=== PATIENT | female | born 1960 | race African-American/Black ===

== ENCOUNTER 2024-03-31 15:33 | Outpatient (AMB) | payer OTHER, MEDICAID, SELFPAY ==
--- NOTE | 2024-03-31 15:33 | HO.NEPHOV_ITS ---
Vital Signs 03/31/24 15:34 Height 5 ft 2 in Weight 239 lb BMI 43.7 BP 124/74 Blood Pressure Location Lt brachial Position Sitting Pulse 75 Pulse Source Pulse Oximeter Pulse Oximetry (%) 96 Oxygen Delivery Method Room Air Intake Visit Reasons: CKD Stage 3-Conf Commercial Plumber Required: No Accompanied by: Self / Same As Patient Allergies doxycycline Allergy (Verified 03/31/24 15:33) Unknown erythromycin base Allergy (Verified 03/31/24 15:33) Unknown kiwi Allergy (Verified 03/31/24 15:33) Unknown latex Allergy (Verified 03/31/24 15:) Unknown penicillamine Allergy (Verified 03/31/24 15:33) Unknown strawberry Allergy (Verified 03/31/24 15:33) Unknown tomato Allergy (Verified 03/31/24:) Unknown HPI Comments Details: Ms Salomon is a delightful 63-year-old female whom had the pleasure of seeing for WILLIAM. She is still grieving from the loss of her . She has multiple medical issues including hypertension, dyslipidemia, rheumatoid arthritis and high BMI. She has been on lisinopril hydrochlorothiazide 02/26.. She is not known to have any proteinuria. Her baseline serum creatinine has been 0.7 which has gone up to 1.22. She has history of low-normal potassium. She is currently on leflunomide and sulfasalazine for her rheumatoid arthritis. She takes vitamin-C daily. She denies chest pain, shortness of breath, proximal nocturnal dyspnea, orthopnea, pedal edema, hematuria, sensorineural deafness,, epistaxis, photosensitivity, new skin rashes. She denies taking excessive nonsteroidal anti-inflammatories. She maintains good hydration. She has no orthostatic symptoms. She is trying to be more active. She has no family history of any renal disease. She is concerned about her rise in serum creatinine. [facility] Medical History (Updated 03/31/24 @ 16:08 by Harley Reyes MD) Concussion Eczema Rheumatoid arthritis Hyperlipidemia Hypertension Anemia Chronic kidney disease, stage 3a Surgical History H/O section Hx of tonsillectomy Review of Systems Const All systems reviewed & are unremarkable except as noted in HPI and below Physical Exam Vital Signs: Last Vital Signs Pulse 75 03/31/24 15:34 BP 124/74 03/31/24 15:34 Pulse Ox 96 03/31/24 15:34 Oxygen Delivery Method Room Air 03/31/24 15:34 BMI result Body Mass Index 43.7 Const General: comfortable and no acute distress Orientation/consciousness: patient oriented x3 HEENT Head: Yes normocephalic Mouth: Normal oral and palatal mucosa present Eyes EOM: EOMs intact bilaterally Neck Neck: Yes supple Resp Auscultation: clear to auscultation bilaterally Cardio Jugular venous distension: no JVD Rate: regular rate GI Palpation (GI): Soft to palpation Auscultation: normal bowel sounds General: Yes no CVA tenderness Back/Spine/Pelvis Back: no CVA tenderness Skin General skin exam: no rashes or lesions noted Neuro General: patient oriented x3 and moves all extremities Extrem General: Yes no pedal edema Results Reviewed Nephrology Results: No Data to Display Assessment & Plan Assessment & Plan (1) WILLIAM (acute kidney injury): Code(s): N17.9 - Acute kidney failure, unspecified Category: Medical (2) Hypertension: Code(s): I10 - Essential (primary) hypertension Category: Medical Qualifiers: Hypertension type: primary hypertension Qualified Code(s): I10 - Essential (primary) hypertension Plan Ms Salomon has WILLIAM most likely due to compromise in renal perfusion with resultant tubular injury. Her urine output is good and there is no reason to suspect any obstructive uropathy. Given she has rheumatoid arthritis and is on medications for the same, we need to consider other differential diagnosis for which I have ordered blood work. We may have to back off on her HCTZ and or lisinopril based on evolving data. She should minimize or avoid nonsteroidal anti-inflammatories and maintain good hydration. She is not known to have any proteinuria. Her blood pressure needs to maintain at goal. I have explained all this in great detail and she had the opportunity to ask questions. Follow- up appointment given. Further management is pending evolving data. Orders: Orders Calcium 03/31/24 I10 - Essential (primary) hypertension Electrolytes 03/31/24 I10 - Essential (primary) hypertension Myeloperoxidase Antibody 03/31/24 I10 - Essential (primary) hypertension Protein Creatinine Ratio, Ur 03/31/24 I10 - Essential (primary) hypertension Prothrombin Time INR 03/31/24 I10 - Essential (primary) hypertension Aldosterone 03/31/24 I10 - Essential (primary) hypertension, N17.9 - Acute kidney failure, unspecified Aldost/Renin 03/31/24 I10 - Essential (primary) hypertension, N17.9 - Acute kidney failure, unspecified Blood Urea Nitrogen 03/31/24 I10 - Essential (primary) hypertension Creatinine 03/31/24 I10 - Essential (primary) hypertension Anti DNA DS Antibody 03/31/24 I10 - Essential (primary) hypertension Proteinase 3 PR3 Antibodies 03/31/24 I10 - Essential (primary) hypertension Anti Glomerular Basement Memb 03/31/24 I10 - Essential (primary) hypertension Complement C3 03/31/24 I10 - Essential (primary) hypertension Complement C4 03/31/24 I10 - Essential (primary) hypertension Immunofixation Pnl, Serum 03/31/24 I10 - Essential (primary) hypertension Complete Blood Count Auto Diff 03/31/24 I10 - Essential (primary) hypertension US renal BI 1 Week I10 - Essential (primary) hypertension, N17.9 - Acute kidney failure, unspecified US renal doppler 1 Week I10 - Essential (primary) hypertension Renin 03/31/24 I10 - Essential (primary) hypertension, N17.9 - Acute kidney failure, unspecified Coding Level of Care Code New Pt Level 4 (61412) Diagnoses WILLIAM (acute kidney injury) N17.9 Primary hypertension I10 Hypertension type: primary hypertension
[2024-03-31 15:34] VITALS: BP 124/74; PULSE 75; O2SAT 96; BMI 43.7
== END 2024-03-31 16:21 | disposition home or self-care (01) ==
PROVIDERS: PCP Hospitalist; Referring Provider Hospitalist; Visit Provider Internal Medicine Nephrology
DX: N17.9 Acute kidney failure, unspecified (principal); I10 Essential (primary) hypertension
CPT/HCPCS: 99204

== ENCOUNTER 2024-04-28 08:42 | Outpatient (REF) | payer MEDICARE, MEDICAID, SELFPAY ==
--- NOTE | ~2024-04-28 | US_ITS ---
EXAMINATION: US RETROPERITONEAL LIMITED (RENAL ONLY) CLINICAL INFORMATION: Acute kidney failure. COMPARISON: None available. TECHNIQUE: Ultrasound along with color Doppler imaging and spectral analysis was performed of the kidneys. FINDINGS: RIGHT KIDNEY: 12.0 x 4.6 x 5.5 cm (SAG x AP x TRV). The kidney is normal in size, contour, and echogenicity. Renal cortical thickness is normal. No calculi or focal parenchymal lesions. No hydronephrosis. LEFT KIDNEY: 10.8 x 5.5 x 4.5 cm (SAG x AP x TRV). The kidney is normal in size, contour, and echogenicity. Renal cortical thickness is normal. No calculi or focal parenchymal lesions. No hydronephrosis. EXAMINATION: US RENAL ARTERY DOPPLER EXAMINATION CLINICAL INFORMATION: Acute kidney failure. TECHNIQUE: Multiple sonographic images of the kidneys were assessed for grayscale appearance and color Doppler flow. Color Doppler imaging and Doppler spectral analysis of the bilateral renal arteries are performed. FINDINGS: The mid abdominal aorta peak systolic flow velocity is 97 cm/sec (less than 40 or greater than 100 cm/s cannot be used to calculate the RAR). Right kidney No calcified renal stones with acoustic shadowing or caliectasis are seen. The right proximal renal artery peak systolic flow velocity is 98 cm/sec (normal < 180). The right mid renal artery peak systolic flow velocity is 138 cm/sec (normal < 180). The right distal renal artery peak systolic flow velocity is 74 cm/sec (normal < 180). The right renal artery to aortic ratio RAR is 1.42 (normal <3). Segmental resistive index: The right renal artery upper resistive index is 0.66 (normal <0.7) The right renal artery mid resistive index is 0.61 (normal <0.7) The right renal artery lower resistive index is 0.67 (normal <0.7) Left kidney No calcified renal stones with acoustic shadowing or caliectasis are seen. The left proximal renal artery peak systolic flow velocity is 83 cm/sec (normal < 180). The left mid renal artery peak systolic flow velocity is 109 cm/sec (normal < 180). The left distal renal artery peak systolic flow velocity is 72 cm/sec (normal < 180). The left renal artery to aortic ratio RAR is 1.12 (normal <3). Segmental resistive index: The left renal artery upper resistive index is 0.69 (normal <0.7) The left renal artery mid resistive index is 0.64 (normal <0.7) The left renal artery lower resistive index is 0.63 (normal <0.7) US/US renal doppler IMPRESSION: 1. Normal sonographic appearance of bilateral kidneys with no evidence of renal stones or hydronephrosis. 2. No sonographic evidence of renal artery stenosis. 2. No sonographic evidence of renal artery stenosis. Electronically signed by: Janet Negrete MD 04/29/2024 06:34 AM DEANDRE
--- OUTSIDE RECORDS SUMMARY | 2024-04-28 08:59 | XMS_ITS ---
Author Organization [facility] Address [address] [place] [address] Care Team Providers Care Software Project Engineer Name Role Phone JESUS ROBLES Primary Care Provider [phone] Allergies Allergen (clinical drug ingredient) Drug/Non Drug Allergy documented on EMR Reaction Allergy Type Onset Date Status kiwis (uncoded) Unknown Allergy Acti ve Latex latex (uncoded) Unknown Allergy Acti ve strawberry allergenic extract strawberries (uncoded) Unknown Allergy Activ e tomato allergenic extract tomatos (uncoded) Unknown Allergy Active doxycycline Doxycycline Hyclate Unknown Drug Allergy Active erythromycin Erythromycin Unknown Drug Allergy A ctive penicillamine Penicillamine Unknown Drug Allergy Active REASON FOR VISIT MEDICARE WELLNESS Medications Medication SIG (Take, Route, Frequency, Duration) Notes Start Date End Date Status Multivitamin Adult one daily N ot-Taking CoQ10 100 MG 1 capsule orally once a day Not-Taking Vitamin D 2000 UNIT 1 tablet Orally Once a day Not-Taking Verdigre 3 1200 MG 1 capsule Orally Once a day Not-Taking Vitamin E 400 UNIT 1 capsule orally once a day Not-Taking Klor-Con 20 MEQ MIX AND DRINK 1 PACKET BY MOUTH DAILY WITH FOOD for 90 days Active Lisinopril-hydroCHLOROth iazide 10-12.5 MG 1 tablet Orally Once a day for 90 days 01/28/2024 Active Atorvastatin Calcium 10 MG TAKE 1 TABLET BY MOUTH EVERY DAY for 90 Active diazePAM 5 MG 1 tablet as needed Orally Once a day for 90 days take half an hour before flight 11/11/2023 Active Metoprolol Succinate ER 100 MG TAKE 1 TABLET BY MOUTH EVERY DAY for 90 days Active Hydroxychloroquine Sulfate 200 MG 1 tablet with food or milk Orally twice a day for [address] Parker Active Leflunomide 20 MG 1 tablet Orally Once a day for [address] Parker Active Aspirin Adult Low Dose 81 MG 1 tablet Orally Once a day for 90 days Active Folic Acid 1 MG 1 tablet Orally Once a day for [address] Parker Active Vitamin C 1000 MG 1 tablet orally once a day for 90 days Active Potassium Chloride ER 20 MEQ 1 tablet with food Orally Once a day for 90 days Active Ferrous Sulfate 325 (65 Fe) MG 2 tablet Orally Once a day for 90 days Active sulfaSALAzine 500 MG 1 tablet Orally four times a day for [address] Parker Active Blood Pressure Monitor - use to check blood pressure daily for 30 days 12/02/2023 Active predniSONE 5 MG 1 tablet Orally Once a day Dr. Parker Active Gabapentin 600 MG 1 tablet Orally 2 times a day for [address] Parker Active Misc. Devices - as directed for 365 days Extra long Compression stocking buttocks high for pt 01/28/2024 Active traMADol HCl 50 MG 1 tablet as needed Orally four times a day Dr. Elena Samayoa Misc. Devices - as directed 01/28/2024 A ctive Social History Tobacco Use: Social History Observation Description Date Details (start date - stop date) Never Smoker NA - NA Tobacco Use/Smoking Question Answer Notes Are you a nonsmoker Alcohol Screen (Audit-C) Question Answer Notes Did you have a drink containing alcohol in the p ast year? No Points 0 Interpretation Negative Vital Signs Temperature 96.8 degrees Fahrenheit 04/22/20 24 Oximetry 95 % 04/22/2024 Heart Rate 66 /min 04/22/2024 Blood pressure systolic 126 mm Hg 04/22/20 24 Blood pressure diastolic 72 mm Hg 024 Weight 239.5 lbs 04/22/2024 BMI 41.11 kg/m2 04/22/2024 Height 64 in 04/22/2024 Encounters Encounter Location Date Provider Diagnosis [facility] [address] [place] [address] 04/22/2024 JESUS ROBLES Encounter for genera l adult medical examination without abnormal findings Z00.00 ; Essential (primary) hypertension I10 ; Mixed hyperlipidemia E78.2 ; 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 Salomon is 64 years old lady with hypertension, hyperlipidemia, rheumatoid arthritis and follows up with Dr. Mahmood, chronic kidney disease stage IIIa and follow-up with Dr. Reyes, anemia is here today for her annual physical. Plan is as follows Hypertension. Blood pressure reasonably controlled on current regimen of metoprolol succinate to 100 mg extended release, lisinopril/HCTZ 10/12.5 mg daily. She is trying to decrease sodium intake. EKG was done today which was normal sinus rhythm with no acute ST or T wave changes, no bundle branch blocks, normal intervals. Hyperlipidemia. Her triglycerides are running high. Advised low calorie foods. The rest of the indices are normal. Chronic kidney disease stage IIIa. She follows up with Dr. Reyes. Her potassium is low and she is on potassium chloride ER 20 mEq 1 tablet daily. Rheumatoid arthritis. She follows up with Dr. Mahmood and she is stable. Morbid obesity. Encouraged weight loss. Dietary restrictions discussed with the patient. Advised low calorie, low carbohydrate diet. Her daughter Elisha Salomon is her healthcare proxy. She is full code. MOLST form discussed with the patient. She will have Cologuard. She is on prednisone and she was advised to discuss with Dr. Parker regarding her bone density study. She declines vaccination. She is morbidly obese and she has rheumatoid arthritis and she has polypharmacy. She lives by herself. She will benefit from ALUMINUM CONTAINER TESTER for a few hours a week to help her with laundry, cleaning, shopping, showering etc. Blood work reviewed and questions answered 04/22/2024 Essential (primary) hypertension (ICD-10 - I10) Mrs. Salomon is 64 years old lady with hypertension, hyperlipidemia, rheumatoid arthritis and follows up with Dr. Mahmood, chronic kidney disease stage IIIa and follow-up with Dr. Reyes, anemia is here today for her annual physical. Plan is as follows Hypertension. Blood pressure reasonably controlled on current regimen of metoprolol succinate to 100 mg extended release, lisinopril/HCTZ 10/12.5 mg daily. She is trying to decrease sodium intake. EKG was done today which was normal sinus rhythm with no acute ST or T wave changes, no bundle branch blocks, normal intervals. Hyperlipidemia. Her triglycerides are running high. Advised low calorie foods. The rest of the indices are normal. Chronic kidney disease stage IIIa. She follows up with Dr. Reyes. Her potassium is low and she is on potassium chloride ER 20 mEq 1 tablet daily. Rheumatoid arthritis. She follows up with Dr. Mahmood and she is stable. Morbid obesity. Encouraged weight loss. Dietary restrictions discussed with the patient. Advised low calorie, low carbohydrate diet. Her daughter Elisha Salomon is her healthcare proxy. She is full code. MOLST form discussed with the patient. She will have Cologuard. She is on prednisone and she was advised to discuss with Dr. Parker regarding her bone density study. She declines vaccination. She is morbidly obese and she has rheumatoid arthritis and she has polypharmacy. She lives by herself. She will benefit from ALUMINUM CONTAINER TESTER for a few hours a week to help her with laundry, cleaning, shopping, showering etc. Blood work reviewed and questions answered 04/22/2024 Mixed hyperlipidemia (ICD-10 - E78.2) Mrs. Salomon is 64 years old lady with hypertension, hyperlipidemia, rheumatoid arthritis and follows up with Dr. Mahmood, chronic kidney disease stage IIIa and follow-up with Dr. Reyes, anemia is here today for her annual physical. Plan is as follows Hypertension. Blood pressure reasonably controlled on current regimen of metoprolol succinate to 100 mg extended release, lisinopril/HCTZ 10/12.5 mg daily. She is trying to decrease sodium intake. EKG was done today which was normal sinus rhythm with no acute ST or T wave changes, no bundle branch blocks, normal intervals. Hyperlipidemia. Her triglycerides are running high. Advised low calorie foods. The rest of the indices are normal. Chronic kidney disease stage IIIa. She follows up with Dr. Reyes. Her potassium is low and she is on potassium chloride ER 20 mEq 1 tablet daily. Rheumatoid arthritis. She follows up with Dr. Mahmood and she is stable. Morbid obesity. Encouraged weight loss. Dietary restrictions discussed with the patient. Advised low calorie, low carbohydrate diet. Her daughter Elisha Salomon is her healthcare proxy. She is full code. MOLST form discussed with the patient. She will have Cologuard. She is on prednisone and she was advised to discuss with Dr. Parker regarding her bone density study. She declines vaccination. She is morbidly obese and she has rheumatoid arthritis and she has polypharmacy. She lives by herself. She will benefit from ALUMINUM CONTAINER TESTER for a few hours a week to help her with laundry, cleaning, shopping, showering etc. 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 Salomon is 64 years old lady with hypertension, hyperlipidemia, rheumatoid arthritis and follows up with Dr. Mahmood, chronic kidney disease stage IIIa and follow-up with Dr. Reyes, anemia is here today for her annual physical. Plan is as follows Hypertension. Blood pressure reasonably controlled on current regimen of metoprolol succinate to 100 mg extended release, lisinopril/HCTZ 10/12.5 mg daily. She is trying to decrease sodium intake. EKG was done today which was normal sinus rhythm with no acute ST or T wave changes, no bundle branch blocks, normal intervals. Hyperlipidemia. Her triglycerides are running high. Advised low calorie foods. The rest of the indices are normal. Chronic kidney disease stage IIIa. She follows up with Dr. Reyes. Her potassium is low and she is on potassium chloride ER 20 mEq 1 tablet daily. Rheumatoid arthritis. She follows up with Dr. Mahmood and she is stable. Morbid obesity. Encouraged weight loss. Dietary restrictions discussed with the patient. Advised low calorie, low carbohydrate diet. Her daughter Elisha Salomon is her healthcare proxy. She is full code. MOLST form discussed with the patient. She will have Cologuard. She is on prednisone and she was advised to discuss with Dr. Parker regarding her bone density study. She declines vaccination. She is morbidly obese and she has rheumatoid arthritis and she has polypharmacy. She lives by herself. She will benefit from ALUMINUM CONTAINER TESTER for a few hours a week to help her with laundry, cleaning, shopping, showering etc. Blood work reviewed and questions answered 04/22/2024 Morbid (severe) obesity due to excess calories (ICD-10 - E66.01) Mrs. Salomon is 64 years old lady with hypertension, hyperlipidemia, rheumatoid arthritis and follows up with Dr. Mahmood, chronic kidney disease stage IIIa and follow-up with Dr. Reyes, anemia is here today for her annual physical. Plan is as follows Hypertension. Blood pressure reasonably controlled on current regimen of metoprolol succinate to 100 mg extended release, lisinopril/HCTZ 10/12.5 mg daily. She is trying to decrease sodium intake. EKG was done today which was normal sinus rhythm with no acute ST or T wave changes, no bundle branch blocks, normal intervals. Hyperlipidemia. Her triglycerides are running high. Advised low calorie foods. The rest of the indices are normal. Chronic kidney disease stage IIIa. She follows up with Dr. Reyes. Her potassium is low and she is on potassium chloride ER 20 mEq 1 tablet daily. Rheumatoid arthritis. She follows up with Dr. Mahmood and she is stable. Morbid obesity. Encouraged weight loss. Dietary restrictions discussed with the patient. Advised low calorie, low carbohydrate diet. Her daughter Elisha Salomon is her healthcare proxy. She is full code. MOLST form discussed with the patient. She will have Cologuard. She is on prednisone and she was advised to discuss with Dr. Parker regarding her bone density study. She declines vaccination. She is morbidly obese and she has rheumatoid arthritis and she has polypharmacy. She lives by herself. She will benefit from ALUMINUM CONTAINER TESTER for a few hours a week to help her with laundry, cleaning, shopping, showering etc. Blood work reviewed and questions answered 04/22/2024 Chronic kidney disease, stage 3a (ICD-10 - N18.31) Mrs. Salomon is 64 years old lady with hypertension, hyperlipidemia, rheumatoid arthritis and follows up with Dr. Mahmood, chronic kidney disease stage IIIa and follow-up with Dr. Reyes, anemia is here today for her annual physical. Plan is as follows Hypertension. Blood pressure reasonably controlled on current regimen of metoprolol succinate to 100 mg extended release, lisinopril/HCTZ 10/12.5 mg daily. She is trying to decrease sodium intake. EKG was done today which was normal sinus rhythm with no acute ST or T wave changes, no bundle branch blocks, normal intervals. Hyperlipidemia. Her triglycerides are running high. Advised low calorie foods. The rest of the indices are normal. Chronic kidney disease stage IIIa. She follows up with Dr. Reyes. Her potassium is low and she is on potassium chloride ER 20 mEq 1 tablet daily. Rheumatoid arthritis. She follows up with Dr. Mahmood and she is stable. Morbid obesity. Encouraged weight loss. Dietary restrictions discussed with the patient. Advised low calorie, low carbohydrate diet. Her daughter Elisha Salomon is her healthcare proxy. She is full code. MOLST form discussed with the patient. She will have Cologuard. She is on prednisone and she was advised to discuss with Dr. Parker regarding her bone density study. She declines vaccination. She is morbidly obese and she has rheumatoid arthritis and she has polypharmacy. She lives by herself. She will benefit from ALUMINUM CONTAINER TESTER for a few hours a week to help her with laundry, cleaning, shopping, showering etc. Blood work reviewed and questions answered Plan Of Treatment Pending Test Test Name Order Date MAMMOGRAM, SCREENING 04/22/2024 Future Test Test Name Order Date Basic Metabolic Panel [id number] Next Appt Details Follow Up: 6 Months, Reason: Progress Notes * Trang SALOMONB: [birth year] (64 yo F)Acc No.[id number]:04/22/2024 Progress Note Patient:?Rita SALOMON Provider:?JESUS ROBLES MD :[id number]???Age:64 Y???Sex:Female D ate:04/22/2024 Address:[address] [place], [place] [id number] Subjective: * Chief Complaints: * ???MEDICARE WELLNESS * HPI: ???Internal Medicine:?Mrs. Salomon is a 63-year-old lady with anemia, hypertension, hyperlipidemia, rheumatoid arthritis, lymphedema and morbid obesity here for general physical. We recently started her on Lisinopril-HCTZ 10-12.5 MG which she tolerated fine. She has chronic kidney disease stage IIIa and she follows up with Dr. Reyes.? She has gained weight.? She uses a cane to walk and she lives alone and she needs help at times with lifting, dressing, laundry and cooking and cleaning. She this physically active but she does not exercise.?She sleeps well, appetite is good. No GI or symptoms. She does not appear anxious or depressed and she is currently going to bereavement groups because her not too long ago.. She denies any other active issues or concerns. ???Patient Care Team:?-?No Providers on Record.?Medicare Annual Visit:?Type of Visit?-?Subsequent Annual Wellness Visit ?Language or Communication barrier addressed?-?Yes ?Health Risk Assessment?DEMOGRAPHICS?- ?- How old are [age] ?- How would you best describe your ethnicity??Black or ?- How would you describe your marital status?- How would you describe your employment status??Retired ?- How many children do you have??one ?RISK ASSESSMENT?- ?- Do you currently use tobacco products??No ?- Have you ever used tobacco products??No ?- What type of tobacco do you use or have you used??__ ?- (If cigarette smoker) How long have you smoked??__ ?- (If cigarette smoker) How many cigarettes do you smoke per day??__ ?- How many alcoholic beverages (i.e. 1oz hard liquor, one glass of wine, one bottle of beer) do you drink daily, on average??None ?- Have you ever felt the need to cut down on drinking??No ?- Have people annoyed you with criticism of your drinking??No ?- Do you or have you felt guilty for drinking??No ?- Have you ever felt the need to drink first thing in the morning to steady your nerves or to get rid of a hangover??No ?- How often do you exercise??Never ?- How vigorously can you exercise??Minimally ?- How often do you use seatbelts??Always ?- In the past month, how often have you had sex??__ ?- Do you have any significant difficulties or dysfunction during sex??No, never ?- How many partners do you have??__ ?- How often do you experience pain with sex??Never ?- How often do you use condoms during sex??Always ?MENTAL HEALTH ASSESSMENT?- ?- In the past two weeks, how often have you felt depressed, down or hopeless??Rarely ?- In the past month, how often have you felt anxious or stressed??Rarely ?- What is your average level of daily stress??Low ?- In the past two weeks, how often have you felt a lack of pleasure or interest in doing things??Never ?- In the past two weeks, how often have you had difficulty falling asleep or episodes of sleeping too long??Never ?- In the past two weeks, how often have you had a lack of energy??Never ?- In the past two weeks, how often have you had feelings of being better off or thoughts of harming yourself??Never ?- Have you ever attempted to harm yourself??No ?GENERAL HEALTH/PAIN ASSESSMENT?- ?- In the past month, how often did you experience pain??Frequently ?- In the past month, how much has pain affected your ability to work??A little ?- In the past month, how much has pain affected your ability to walk??to a moderate degree ?- In the past month, how much has pain affected your relationship with other people??A little ?- On a scale of 1-10, how bad would you rate your average daily pain??9 ?- How would you describe the ease with which you can prepare your own food??A little difficult ?- How would you describe the ease with which you can bathe or clean yourself??A little difficult ?- How would you describe the ease with which you can dress yourself??A little difficult ?- How hard is it to use the toilet by yourself??A little hard ?- How would you describe the ease with which you can do your own shopping??I can't do my own shopping ?- How would you describe the ease with which you can get around your house??A little difficult ?- How would you describe your ability to pay your bills??Very good ?- How would you describe your ability to plan your daily and monthly budgets??Very good ?- How would you describe your ability to do routine housework??Adequate ?HOME SAFETY/ASSISTANCE?- ?- Do you feel like you are safe in your current home??Yes ?- How many times have you fallen in your home??Never ?- How much would you need to change your living circumstances to feel safe??Not at all ?- Do you feel that living somewhere else would be good for you??No ?- How much help do you feel you need at home??A little ?- How much does your family help with daily or routine chores??Not at all ?Immunization Status addressed?-?Yes ?Depression Screening?-?PHQ9 done ?Vision Screening?-?Not done ?Hearing Screening?-?Not done ?Fall Risk and Home Safety?-?Negative, no falls in the past year, no difficulty walking, or getting out of bed or chair ?Medication evaluation and reconcilliation performed?Yes ?Vision screening recommended?Yes ?Literature offered to the patient?Yes ?Referrals?physical therapy offered for gait balance and mobility evaluation, fall prevention home evauation offered, DEXA screening offered ?Get Up and Go Evaluation?under 20 seconds ?Psychosocial Risks?-?No overt psychosocial risks shown, observed, or mentioned ?Behavioral Risks?-?Patient seems very well adjusted and no behavorial issues noted ?Activities of daily living?-?Not impaired ?Cognitive Screening?-?No overt cognitive deficiency is apparent by direct observation * ROS:?General/Constitutional:?Overall health?Good.?Change in appetite?denies.?Chills?denies.?Fatigue?denies.?Fever?denies.?Night sweats?denies.?Sleep disturbance?denies.?Weight gain?,admits.?Weight loss?denies.?Neurologic:?Difficulty speaking?denies.?Dizziness?denies.?Gait abnormality?denies.?Headache?denies.?Loss of strength?denies.?Memory loss?denies.?Seizures?denies.?Tingling/Numbness?denies .?Ophthalmologic:?Blurred vision?denies.?Discharge?denies.?Dry eye?denies.?Red eye?denies.?Cardiovascular:?Diaphoresis?Denies.?Pedal Edema?Denies.?PND (Paroxsymal nocturnal dyspnea)?Denies.?Chest pain?denies.?Difficulty laying flat?denies.?Dyspnea on exertion?denies.?Heart murmur?denies.?Orthopnea?denies.?Respiratory:?Snoring?denies.?Asthma?denies.?Cough?denies.?Shortness of breath with exertion?denies.?Sputum production?denies.?Wheezing?denies.?Gastrointestinal:?Change in bowel habits?denies.?Constipation?denies.?Decreased appetite?denies.?Diarrhea?denies.?Heartburn?denies.?Nausea?denies.?Vomiting?arturo es.?Musculoskeletal:?tingling/numbness?Denies.?myalgias?Denies.?Joint Swelling?Denies.?extremeties?normal.?Arthritis?,admits.?Back problems?,admits.?Carpal tunnel?denies.?Joint stiffness?denies.?Muscle aches?denies.?Endocrine:?Bowel Changes?Denies.?Breast Discharge?Denies.?poor libido?Denies.?Cold intolerance?denies.?Excessive sweating?denies.?Excessive thirst?denies.?Frequent urination?denies.?Thyroid problems?denies.?Skin:?Bruising?Denies.?Eczema?denies.?Hair changes?denies.?Rash?denies.?Skin lesion(s)?denies.?Psychiatric:?Anxiety?denies.?Depressed mood?denies.?Difficulty sleeping?denies.?Nervous breakdown?denies.?Substance abuse?denies.?Urology:?abnormal menstrual bleeding?denies.?blood in urine?denies.?burning on urination?denies.?difficulty urinating?denies.?discharge?denies.?dysuria?denies.? * Medical History:? * Surgical History:?tonsillect blaze section * Hospitalization/Major Diagno stic Procedure:? * Family History:?Father: kole mayberry?Mother: alive, diagnosed with Diabetes, Hypertension.?Paternal Grand Mother: alive 101 yrs.?Maternal uncle: diagnosed with Cancer.?Maternal aunt: diagnosed with Cancer.? * Social History:?Tobacco Use:?Tobacco Use/Smoking?Are you a?nonsmoker ???Drugs/Alcohol:?Drugs?Have you used drugs other than those for medical reasons in the past 12 months??No ?Alcohol Screen (Audit-C)?Did you have a drink containing alcohol in the past year??No ?Points?0 ?Interpretation?Negative ???Miscellaneous:?Exercise: occasionally. ?Marital status: . ?Occupation: Retired. * Medications:?TakingGabapenti n 600 MG Tablet 1 tablet Orally 2 times a day , Notes to Pharmacist: Dr. MahmoodepredniSONE 5 MG Tablet 1 tablet Orally Once a day , Notes to Pharmacist: Dr. MahmoodetraMADol HCl 50 MG Tablet 1 tablet as needed Orally four times a day , Notes to Pharmacist: Dr. العراقي. Devices - Miscellaneous as directed Extra long Compression stocking buttocks high for ptMisc. Devices - Miscellaneous as directed Blood Pressure Monitor - Device use to check blood pressure daily Potassium Chloride ER 20 MEQ Tablet Extended Release 1 tablet with food Orally Once a day Vitamin C 1000 MG Tablet 1 tablet orally once a day sulfaSALAzine 500 MG Tablet 1 tablet Orally four times a day , Notes to Pharmacist: Dr. Arreguinous Sulfate 325 (65 Fe) MG Tablet 2 tablet Orally Once a day , Notes to Pharmacist: roxychloroquine Sulfate 200 MG Tablet 1 tablet with food or milk Orally twice a day , Notes to Pharmacist: Dr. MahmoodeAspirin Adult Low Dose 81 MG Tablet Delayed Release 1 tablet Orally Once a day Leflunomide 20 MG Tablet 1 tablet Orally Once a day , Notes to Pharmacist: Dr. Martinezolic Acid 1 MG Tablet 1 tablet Orally Once a day , Notes to Pharmacist: Dr. Daileytoprolol Succinate ER 100 MG Tablet Extended Release 24 Hour TAKE 1 TABLET BY MOUTH EVERY DAY diazePAM 5 MG Tablet 1 tablet as needed Orally Once a day take half an hour before flightLisinopril-hydroCHLOROthiazide 10-12.5 MG Tablet 1 tablet Orally Once a day Klor-Con 20 MEQ Packet MIX AND DRINK 1 PACKET BY MOUTH DAILY WITH FOOD Atorvastatin Calcium 10 MG Tablet TAKE 1 TABLET BY MOUTH EVERY DAY Taking Gabapentin 600 MG Tablet 1 tablet Orally 2 times a day , Notes to Pharmacist: Dr. Clayton predniSONE 5 MG Tablet 1 tablet Orally Once a day , Notes to Pharmacist: Dr. Clayton traMADol HCl 50 MG Tablet 1 tablet as needed Orally four times a day , Notes to Pharmacist: Dr. Clayton Misc. Devices - Miscellaneous as directed Extra long Compression stocking buttocks high for ptTaking Misc. Devices - Miscellaneous as directed Taking Blood Pressure Monitor - Device use to check blood pressure daily Taking Potassium Chloride ER 20 MEQ Tablet Extended Release 1 tablet with food Orally Once a day Taking Vitamin C 1000 MG Tablet 1 tablet orally once a day Taking sulfaSALAzine 500 MG Tablet 1 tablet Orally four times a day , Notes to Pharmacist: Dr. Clayton Ferrous Sulfate 325 (65 Fe) MG Tablet 2 tablet Orally Once a day , Notes to Pharmacist: Hydroxychloroquine Sulfate 200 MG Tablet 1 tablet with food or milk Orally twice a day , Notes to Pharmacist: Dr. Clayton Aspirin Adult Low Dose 81 MG Tablet Delayed Release 1 tablet Orally Once a day Taking Leflunomide 20 MG Tablet 1 tablet Orally Once a day , Notes to Pharmacist: Dr. Clayton Folic Acid 1 MG Tablet 1 tablet Orally Once a day , Notes to Pharmacist: Dr. Clayton Metoprolol Succinate ER 100 MG Tablet Extended Release 24 Hour TAKE 1 TABLET BY MOUTH EVERY DAY Taking diazePAM 5 MG Tablet 1 tablet as needed Orally Once a day take half an hour before flightTaking Lisinopril-hydroCHLOROthiazide 10-12.5 MG Tablet 1 tablet Orally Once a day Taking Klor-Con 20 MEQ Packet MIX AND DRINK 1 PACKET BY MOUTH DAILY WITH FOOD Taking Atorvastatin Calcium 10 MG Tablet TAKE 1 TABLET BY MOUTH EVERY DAY Not- [id number] 100 MG Capsule 1 capsule orally once a day Multivitamin Adult , Notes to Pharmacist: one dailyOmega 3 1200 MG Capsule 1 capsule Orally Once a day Vitamin D 2000 UNIT Tablet 1 tablet Orally Once a day Vitamin E 400 UNIT Capsule 1 capsule orally once a day Not-Taking CoQ10 100 MG Capsule 1 capsule orally once a day Not-Taking Multivitamin Adult , Notes to Pharmacist: one dailyNot-Taking Verdigre 3 1200 MG Capsule 1 capsule Orally Once a day Not-Taking Vitamin D 2000 UNIT Tablet 1 tablet Orally Once a day Not-Taking Vitamin E 400 UNIT Capsule 1 capsule orally once a day DiscontinuedFurosemide 20 MG Tablet TAKE 1 TABLET BY MOUTH EVERY DAY Discontinued Furosemide 20 MG Tablet TAKE 1 TABLET BY MOUTH EVERY DAY * Allergies:?Penicillamine: Al lergy - Criticality HighErythromycin: Allergy - Criticality HighDoxycycline Hyclate: Allergy - Criticality Highlatex: Allergy - Criticality Unknownstrawberries: Allergy - Criticality Highkiwis: Allergy - Criticality Hightomatos: Allergy - Criticality Highno[Allergies Verified] Objective: * Vitals:?Temp:96.8F, Oxygen s at %:95%, HR:66/min, BP:126/72mm Hg, Wt:239.5lbs, BMI:41.11Index, Ht: 64 in. * ???Past Orders: ???Lab:Basic Metabolic Panel [id number] (Order Date - 02/25/2024) (Collection Date & Time - 03/23/2024) ? Value Reference Range ?Glucose 86 70-99 - mg/d L ?BUN 10 8-27 - mg/dL ?Creatinine 1.10 H 0.57-1.00 - mg/dL ?BUN/Creatinine Ratio 9 L 12-28 - ?Sodium 143 134-144 - mmo l/L ?Potassium 3.4 L 3.5-5.2 - mmol/L ?Chloride 102 96-106 - mm ol/L ?Carbon Dioxide, Total 27 20-29 - mmol/L ?eGFR 57 L >59 - mL/min/1. 73 ???Lab:Lipid Panel-[id number] (O rder Date - 02/25/2024) (Collection Date & Time - 03/23/2024) ? Value Reference Range ?Cholesterol, Total 184 1 00-199 - mg/dL ?Triglycerides 219 H 0-149 - mg/dL ?HDL Cholesterol 55 >39 - mg/dL ?VLDL Cholesterol Nir 37 5-40 - mg/dL ?LDL Chol Calc (NIH) 92 0-99 - mg/dL ???Lab:Albumin/Creatinine Ra jennings,Urine-[id number] (Order Date - 01/28/2024) (Collection Date & Time - 02/18/2024 10:46 AM) ? Value Reference Range ?Creatinine, Urine 233.9 No t Estab. - mg/dL ?Albumin, Urine 68.8 Not E stab. - ug/mL ?Alb/Creat Ratio 29 0-29 - mg/g creat * Examination: ???General Examination: ?Psychiatry?Normal.?GENERAL APPEARANCE:?Well developed, well nourished, in no acute distress.?MUSCULOSKELETAL:?Normal.?HEAD:?Normocephalic, atraumatic.?EYES:?Pupils equal, round, reactive to light and accommodation, sclera non-icteric.?EARS:?auditory canal clear tympanic membrane intact, clear light reflex present .?ORAL CAVITY:?gums normal mucosa moist no lesions tongue in midline .?THROAT:?Clear.?OROPHARYNX?Normal.?SINUSES?Normal.?NECK/THYROID:?Neck supple, full range of motion, no cervical lymphadenopathy.?SKIN:?Warm and dry, no suspicious lesions.?HEART:?S1, S2 normal no murmurs, rubs, gallops .?LUNGS:?clear anteriorly and posteriorly no wheezes, rales, rhonchi good air movement .?BREASTS:?__.?ABDOMEN:?Soft, nontender, nondistended, bowel sounds present, normal.?EXTREMITIES:?no clubbing, cyanosis, or edema .?PERIPHERAL PULSES:?Normal.?NEUROLOGIC:?Nonfocal,? appropriate?motor strength normal upper and lower extremities, sensory exam intact.?FEMALE GENITOURINARY:?__.?MALE GENITOURINARY:?__.?PODIATRIC:?Normal.?Sewage Reticulation Drafting Officer? .? 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 Mrs. Salomon is 64 years ol d lady with hypertension, hyperlipidemia, rheumatoid arthritis and follows up with Dr. Mahmood, chronic kidney disease stage IIIa and follow-up with Dr. Reyes, anemia is here today for her annual physical.? Plan is as follows Hypertension.? Blood pressure reasonably controlled on current regimen of metoprolol succinate to 100 mg extended release, lisinopril/HCTZ 10/12.5 mg daily.? She is trying to decrease sodium intake.? EKG was done today which was normal sinus rhythm with no acute ST or T wave changes, no bundle branch blocks, normal intervals. Hyperlipidemia.? Her triglycerides are running high.? Advised low calorie foods.? The rest of the indices are normal. Chronic kidney disease stage IIIa.? She follows up with Dr. Reyes.? Her potassium is low and she is on potassium chloride ER 20 mEq 1 tablet daily. Rheumatoid arthritis.? She follows up with Dr. Mahmood and she is stable. Morbid obesity.? Encouraged weight loss.? Dietary restrictions discussed with the patient.? Advised low calorie, low carbohydrate diet. Her daughter Elisha Salomon is her healthcare proxy.? She is full code. MOLST form discussed with the patient. She will have Cologuard.? She is on prednisone and she was advised to discuss with Dr. Parker regarding her bone density study. She declines vaccination. She is morbidly obese and she has rheumatoid arthritis and she has polypharmacy.? She lives by herself.? She will benefit from ALUMINUM CONTAINER TESTER for a few hours a week to help her with laundry, cleaning, shopping, showering etc. Blood work reviewed and questions answered Plan: * Treatment: 2.?Essential (primary) hyper tension?LAB: Basic Metabolic Panel [id number] (Ordered for 04/22/2024) * Procedure Codes:?3078F DIAST BP < 80 MM [id number] SYST BP LT 130 MM [id number] ANNUAL WELLNESS VST; PPS SUBSQT [id number] ELECTROCARDIOGRAM, [id number] BODY MASS INDEX [id number] ANNUAL DEPRESSION SCREENING 15 [id number] ANNUAL ALCOHOL MISUSE SCREEN 15 [id number] ELDER MALTX SCR DOC NEG NO F/U [id number] Pt scrn tbco id as non [id number] ADVNC CARE PLAN IN RD * Preventive Medicine:? ??YOUR PREVENTIVE WELLNESS PLAN:?BMI, Height, and Weight:?The Recommended Frequency is:?Annually ?Blood Pressure:?The Recommended Frequency is:?Every 2 years, if BP </= 120/80 mm Hg, Annually, if BP >120-139/80-89 mm Hg ?Vision:?The Recommended Frequency is:?Every 3 years up to age 40, Every 2 years aged 40+ ?Abdominal Aortic Aneurysm:?The Recommended Frequency is:?Once, between the age range of 65-75 and for those who have smoked 100+ cigarettes in lifetime ?Breast Cancer Screening (Mammogram):?The Recommended Frequency is:?Every two years, ages 50-74 ?Cervical Cancer Screening (Pap Smear):?The Recommended Frequency is:?Every three years, ages 21-64, Every five years, ages 30-65 with HPV testing ?Osteoporosis Screening (Bone Density Measurement):?The Recommended Frequency is:?Routinely, for women ages 65+, Routinely, for women ages 60-64 with risk factors ?Cholesterol Testing:?The Recommended Frequency is:?Regularly beginning at age 20 with risk factors ?Diabetes Screening:?The Recommended Frequency is:?With a sustained BP >/= 135/80 mm Hg ?Colorectal Cancer Screening:?The Recommended Frequency is:?Annually, Fecal Occult Blood Stool (FOBS), Every 5 years, Sigmoidoscopy with FOBS, Every 10 years, Colonoscopy ?Sexually Transmitted Diseases (STDs):?The Recommended Frequency is:?As necessary for those with risk factors ?Depression Screening:?The Recommended Frequency is:?As necessary for those with risk factors ?Alcohol Misuse Screening:?The Recommended Frequency is:?As necessary for those with risk factors ?Pneumococcal (Pneumonia) Vaccine:?The Recommended Frequency is:?1-2 doses up to age 64, 1 dose age 65+ ?Influenza (Flu) Vaccine:?The Recommended Frequency is:?Annually ?Other:?____.?Major Risk Factors:?Your Risk Factors Include:?Family history of , Diabetes, Fall Risk, Hypertension, Obesity, Smoking Use, Other ?Recommendations For Improvement ?The recommendations are:?Diet, Exercise, Tobacco cessation, Weight management, Other ?Additional Resources Included:?follow-up instructions, handouts, referrals.?COVID (2) 2020 DECLINES OTHER VACCINATIONS? BMD No COLONOSCOPY NO EYE EXAM 04/10 Dr Garrett REGASIFICATION PLANT OPERATOR NO MAMMOGRAM NO This plan was discussed, printed, and handed to patient. * Follow Up:?6 Months * * Sign off status: Completed true * Provider:?JESUS ROBLES MD Date:?04/22 Generated for Madison prieto/Desire/Catalinaitting on:?04/28/2024 08:58 AM EST History and Physical Notes * HPI (History of Present Illness) Category Sub-Category Detail Notes Category Not es Medicare Annual Visit Type of Visit -: Subsequ ent Annual Wellness Visit Language or Communication barrier addressed -: Y es Health Risk Assessment DEMOGRAPHICS: - - How old are you?: 65-71 - How would you best describe your ethni city?: [place] or - How would you describe your marital st atus?: - How would you describe your employment status?: Retired - How many children do you have?: one RISK ASSESSMENT: - - Do you currently use tobacco products? : No - Have you ever used tobacco products?: No - What type of tobacco do you use or hav e you used?: __ - (If cigarette smoker) How long have yo u smoked?: __ - (If cigarette smoker) How many cigaret gaston do you smoke per day?: __ - How many alcoholic beverag es (i.e. 1oz hard liquor, one glass of wine, one bottle of beer) do you drink daily, on average?: None - Have you ever felt the need to cut ricki n on drinking?: No - Have people annoyed you with criticism of your drinking?: No - Do you or have you felt guilty for dri nking?: No - Have you ever felt the nee d to drink first thing in the morning to steady your nerves or to get rid of a hangover?: No - How often do you exercise?: Never - How vigorously can you exercise?: Mini samanta - How often do you use seatbelts?: Alway s - In the past month, how often have you had sex?: __ - Do you have any significan t difficulties or dysfunction during sex?: No, never - How many partners do you have?: __ - How often do you experience pain with sex?: Never - How often do you use condoms during se x?: Always MENTAL HEALTH ASSESSMENT: - - In the past two weeks, how often have you felt depressed, down or hopeless?: Rarely - In the past month, how often have you felt anxious or stressed?: Rarely - What is your average level of daily st ress?: Low - In the past two weeks, how often have you felt a lack of pleasure or interest in doing things?: Never - In the past two weeks, how often have you had difficulty falling asleep or episodes of sleeping too long?: Never - In the past two weeks, how often have you had a lack of energy?: Never - In the past two weeks, how often have you had feelings of being better off or thoughts of harming yourself?: Never - Have you ever attempted to harm yourse lf?: No GENERAL HEALTH/PAIN ASSESSMENT: - - In the past month, how often did you e xperience pain?: Frequently - In the past month, how much has pain a ffected your ability to work?: A little - In the past month, how muc h has pain affected your ability to walk?: to a moderate degree - In the past month, how muc h has pain affected your relationship with other people?: A little - On a scale of 1-10, how bad would you rate your average daily pain?: 9 - How would you describe the ease with which you can prepare your own food?: A little difficult - How would you describe the ease with which you can bathe or clean yourself?: A little difficult - How would you describe the ease with which you can dress yourself?: A little difficult - How hard is it to use the toilet by yo urself?: A little hard - How would you describe the ease with which you can do your own shopping?: I can't do my own shopping - How would you describe the ease with which you can get around your house?: A little difficult - How would you describe your ability to pay your bills?: Very good - How would you describe you r ability to plan your daily and monthly budgets?: Very good - How would you describe your ability to do routine housework?: Adequate HOME SAFETY/ASSISTANCE: - - Do you feel like you are safe in your current home?: Yes - How many times have you fallen in your home?: Never - How much would you need to change your living circumstances to feel safe?: Not at all - Do you feel that living somewhere else would be good for you?: No - How much help do you feel you need at home?: A little - How much does your family help with da mitchell or routine chores?: Not at all Immunization Status addressed -: Yes Vision Screening -: Not done Depression Screening -: PHQ9 done Hearing Screening -: Not done Fall Risk and Home Safety -: Negative, n o falls in the past year, no difficulty walking, or getting out of bed or chair Medication evaluation and reconcilliatio n performed: Yes Vision screening recommended: Yes Literature offered to the patient: Yes Referrals: physical therapy offered for gait balance and mobility evaluation, fall prevention home evauation offered, DEXA screening offered Get Up and Go Evaluation: under 20 secon ds Psychosocial Risks -: No overt psychoso cial risks shown, observed, or mentioned Behavioral Risks -: Patient seems cayden y well adjusted and no behavorial issues noted Activities of daily living -: Not impaired Cognitive Screening -: No overt cognitiv e deficiency is apparent by direct observation Patient Care Team - No Providers on Record Internal Medicine Mrs. Jose roldan is a 63-year-old lady with anemia, hypertension, hyperlipidemia, rheumatoid arthritis, lymphedema and morbid obesity here for general physical. We recently started her on Lisinopril-HCTZ 10-12.5 MG which she tolerated fine. She has chronic kidney disease stage IIIa and she follows up with Dr. Reyes. She has gained weight. She uses a cane to walk and she lives alone and she needs help at times with lifting, dressing, laundry and cooking and cleaning. She this physically active but she does not exercise. She sleeps well, appetite is good. No GI or symptoms. She does not appear anxious or depressed and she is currently going to bereavement groups because her not too long ago.. She denies any other active issues or concerns. Examination Category Sub-Category Detail Notes Category Not es General Examination GENERAL APPEARANCE: Well dev eloped, well nourished, in no acute distress HEAD: Normocephalic, atrau matic EYES: Pupils equal, round, reactive to light and accommodation, sclera non-icteric EARS: auditory canal clear tympanic membrane intact, clear light reflex present THROAT: Clear NECK/THYROID: Neck supple, full ra nge of motion, no cervical lymphadenopathy HEART: S1, S2 normal no mur murs, rubs, gallops LUNGS: clear anteriorly and posteriorly no wheezes, rales, rhonchi good air movement ABDOMEN: Soft, nontender, non distended, bowel sounds present, normal NEUROLOGIC: Nonfocal, appropriat e motor strength normal upper and lower extremities, sensory exam intact SKIN: Warm and dry, no delbert picious lesions EXTREMITIES: no clubbing, cyanosi s, or edema PERIPHERAL PULSES: Normal BREASTS: __ MUSCULOSKELETAL: Normal MALE GENITOURINARY: __ FEMALE GENITOURINARY: __ ORAL CAVITY: gums normal mucosa m oist no lesions tongue in midline PODIATRIC: Normal Psychiatry Normal OROPHARYNX Normal SINUSES Normal Sewage Reticulation Drafting Officer
--- OUTSIDE RECORDS SUMMARY | 2024-04-28 08:59 | XMS_ITS ---
Author Organization [facility] Address [address] [place] [id number] Care Team Providers Care Motion Picture Set Worker Name Role Phone JESUS ROBLES Primary Care Provider [phone] REASON FOR VISIT lab results Encounters Encounter Location Date Provider Diagnosis [facility] [address] [address] 04/06/2024 JESUS ROBLES Plan Of Treatment No Information Progress Notes * Trang SALOMONB: 9[birth year] (64 yo F)Acc No.[id number]:04/06/2024 Patient:?Rita SALOMON :1960???Age:63 Y???Sex:Female Address:[address] [place] [id number] * true * Date:? Generated for Madison prieto/Desire/eTransmitting on:?04/28/2024 08:59 AM EST
--- OUTSIDE RECORDS SUMMARY | 2024-04-28 08:59 | XMS_ITS ---
Author Organization [facility] Address [address] [place] [address] Care Team Providers Care High School Guidance Counselor Name Role Phone JESUS ROBLES Primary Care Provider REASON FOR VISIT Klor-Con inquiry Encounters Encounter Location Date Provider Diagnosis [facility] [address] [place] [address] 04/21/2024 JESUS ROBLES Plan Of Treatment No Information Progress Notes * Trang SALOMONB: 9[birth year] (64 yo F)Acc No.[id number]:04/21/2024 Patient:?Rita SALOMON :1960???Age:64 Y???Sex:Female Address:[address] [place] [phone] * * Date:?
--- OUTSIDE RECORDS SUMMARY | 2024-04-28 09:00 | XMS_ITS | Patient Health Record ---
Author Organization [employer] Address [address] [place] [address] [address] [place] [address] Care Team Providers Care Pack Mule Worker Name Role Phone JESUS ROBLES Primary Care Provider Winnie Louise Unavailable [phone] Allergies Allergen (clinical drug ingredient) Drug/Non Drug [...] ctive penicillamine Penicillamine Unknown Drug Allergy Active Results Component Value Reference Range Notes Lipid Panel-[id number] Reviewed date:2024 09:32:03 AM Interpretation: Performing Lab:[facility], [address] [facility], Phone - [phone], Director - Cydney Notes/Report: Clinical Information:SRC: Cholesterol, Total 184 100-199 mg/dL Triglycerides 219 0-149 mg/dL HDL Cholesterol 55 >39 mg/dL VLDL Cholesterol Nir 37 5-40 mg/dL LDL Chol Calc ([facility]) 92 0-99 mg/dL Basic Metabolic Panel ([id number] Reviewed date:04/06/2024 12:28:34 PM Interpretation: Performing Lab:[facility] [place], [address] [facility], Phone - [phone], Director - Cydney Notes/Report: Clinical Information:SRC: Glucose 86 70-99 mg/dL BUN 10 8-27 mg/dL Creatinine 1.10 0.57-1.00 mg/dL eGFR 57 >59 mL/min/1.73 BUN/Creatinine Ratio 9 12-28 Sodium 143 134-144 mmol/L Potassium 3.4 3.5-5.2 mmol/L Chloride 102 96-106 mmol/L Carbon Dioxide, Total 27 20-29 mmol/L Albumin/Creatinine Ratio,Uri ne-[id number] Reviewed date:02/25/2024 01:00:50 PM Interpretation: Performing Lab:[facility], [address] [place] [address], Phone - [phone], Director - MDJodry Notes/Report: Creatinine, Urine 233.9 Not Estab. mg/dL Albumin, Urine 68.8 Not Estab. ug/mL Alb/Creat Ratio 29 0-29 mg/g creat Normal: 0 - 29 Moderately increased: 30 - 300 Severely increased: >300 Lipid Panel-[id number] Reviewed date:02/25/2024 01:00:58 PM Interpretation: Performing Lab:[facility], [address] [place] [address], Phone - [phone], Director - Cydney Notes/Report: Cholesterol, Total 203 100-199 mg/dL Triglycerides 240 0-149 mg/dL HDL Cholesterol 53 >39 mg/dL VLDL Cholesterol Nir 41 5-40 mg/dL LDL Chol Calc ([facility]) 109 0-99 mg/dL Comp. Metabolic Panel ([id number] Reviewed date:02/25/2024 01:00:44 PM Interpretation: Performing [facility], [address] [facility], Phone - [phone], Director - Cydney Notes/Report: Glucose 82 70-99 mg/dL BUN 20 8-27 mg/dL Creatinine 1.22 0.57-1.00 mg/dL eGFR 50 >59 mL/min/1.73 BUN/Creatinine Ratio 16 12-28 Sodium 144 134-144 mmol/L Potassium 3.1 3.5-5.2 mmol/L Chloride 99 96-106 mmol/L Carbon Dioxide, Total 29 20-29 mmol/L Calcium 10.0 8.7-10.3 mg/dL Protein, Total 7.0 6.0-8.5 g/dL Albumin 4.6 3.9-4.9 g/dL Globulin, Total 2.4 1.5-4.5 g/dL Bilirubin, Total 0.5 0.0-1.2 mg/dL Alkaline Phosphatase 90 44-121 IU/L AST (SGOT) 25 0-40 IU/L ALT (SGPT) 23 0-32 IU/L Reason For Referral Reason Father positive for Transthyretin Amyloidosis- 50 percent chance of carrying the gene. 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) Referral Organization [facility] Referring Provider First Name Winnie Referring Provider Last Name Dani Referred Provider Specialty [employer] Sales General Notes faxed over to [facility] [place], they will call ptClay Brittney 01/29/2024 02:08:55 PM > Referral Priority Urgent Reason Evaluation and manag ement Diagnosis 1 Chronic kidney disea se, stage 3a (N18.31) Referral Organization [facility] Referring Provider First Name JESUS Referring Provider Last Name TRAVIS Referring Provider Speciality Internal M edicine Referred Provider Specialty Neurology General Notes Referral sent to [facility] ([address] [place] [address] Drive, [address], [place] [address], ) - Office will call patient for scheduling.Ethan Latraya 03/16/2024 02:58:25 PM > Referral Priority Routine Medications Medication SIG (Take, Route, Frequency, Duration) Notes Start Date End Date Status Vitamin C 1000 MG 1 tablet orally once a day for 90 days Active Klor-Con 20 MEQ MIX AND DRINK 1 PACKET BY MOUTH DAILY WITH FOOD for 90 days Active Potassium Chloride ER 20 MEQ 1 tablet with food Orally Once a day for 90 days Active Lisinopril-hydroCHLOROth iazide 10-12.5 MG 1 tablet Orally Once a day for 90 days 01/28/2024 Active Ferrous Sulfate 325 (65 Fe) MG 2 tablet Orally Once a day for 90 days Active sulfaSALAzine 500 MG 1 tablet Orally four times a day for [address] Parker Active Atorvastatin Calcium 10 MG TAKE 1 TABLET BY MOUTH EVERY DAY for 90 Active Hydroxychloroquine Sulfate 200 MG 1 tablet with food or milk Orally twice a day for [address] Parker Active Multivitamin Adult one daily N ot-Taking CoQ10 100 MG 1 capsule orally once a day Not-Taking predniSONE 5 MG 1 tablet Orally Once a day Dr. Parker Active Leflunomide 20 MG 1 tablet Orally Once a day for [address] Parker Active Vitamin D 2000 UNIT 1 tablet Orally Once a day Not-Taking Gabapentin 600 MG 1 tablet Orally 2 times a day for [address] Parker Active Aspirin Adult Low Dose 81 MG 1 tablet Orally Once a day for 90 days Active Elaine 3 1200 MG 1 capsule Orally Once a day Not-Taking Misc. Devices - as directed for 365 days Extra long Compression stocking buttocks high for pt 01/28/2024 Active traMADol HCl 50 MG 1 tablet as needed Orally four times a day Dr. Parker Active Folic Acid 1 MG 1 tablet Orally Once a day for [address] Parker Active Vitamin E 400 UNIT 1 capsule orally once a day Not-Taking Blood Pressure Monitor - use to check blood pressure daily for 30 days 12/02/2023 Active diazePAM 5 MG 1 tablet as needed Orally Once a day for 90 days take half an hour before flight 11/11/2023 Active Misc. Devices - as directed 01/28/2024 A ctive Metoprolol Succinate ER 100 MG TAKE 1 TABLET BY MOUTH EVERY DAY for 90 days Active Immunizations Vaccine Route Administration Date Status Comme nts COVID Unknown 11/13/2020 Administered 1st pfizer COVID Unknown 12/04/2020 Administered 2nd pfizer Td (adult), absorbed Unknown 09/05/2000 Administered Social History Tobacco Use: Social History Observation Description Date Details (start date - stop date) Never Smoker NA - NA Tobacco Use/Smoking Question Answer Notes Are you a nonsmoker Alcohol Screen (Audit-C) Question Answer Notes Did you have a drink containing alcohol in the p ast year? 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 Problem Paresthesia (finding) (86269161) Paresthesia of skin (R20.2) Active confirmed Problem Dizziness and giddiness (910027347) Dizziness and giddiness (R42) Active confirmed Problem Abnormal results of liver function studies (801853411) Abnormal results of liver function studies (R94.5) Active confirmed Problem Essential hypertension (90696748) Essential (primary) hypertension (I10) Active confirmed Problem 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) Active confirmed Problem Chronic kidney disease stage 3A (disorder) (976479165) Chronic kidney disease, stage 3a (N18.31) Active confirmed Vital Signs Heart Rate 66 /min 04/22/2024 Temperature 96.8 degrees Fahrenheit 04/22/2024 Oximetry 95 % 04/22/2024 Blood pressure diastolic 72 mm Hg 04/22/2024 Height 64 in 04/22/2024 Blood pressure systolic 126 mm Hg 04/22/2024 Weight 239.5 lbs 04/22/2024 BMI 41.11 kg/m2 04/22/2024 Encounters Encounter Location Date Provider Diagnosis [address] [address] 05/22/2023 JESUS ROBLES [address] [address] 10/23/2023 Ghadeer Mazloum Essential (primary) hypertension I10 ; Dizziness and giddiness R42 and Orthostatic hypotension I95.[address] [place] [address] 11/02/2023 Ghadeer Mazloum Essential (primary) hypertension I10 ; Mixed hyperlipidemia E78.2 ; Morbid (severe) obesity due to excess calories E66.01 and Dietary counseling and surveillance Z71.[address] [address] 01/28/2024 Ghadeer Mazloum Mixed hyperlipidemia E78.2 ; Essential (primary) hypertension I10 ; Morbid (severe) obesity due to excess calories E66.01 and Dietary counseling and surveillance Z71.[address] [address] 02/25/2024 LEE GU Essential (primary) hypertension I10 ; Mixed hyperlipidemia E78.2 ; Morbid (severe) obesity due to excess calories E66.01 ; Chronic kidney disease, stage 3a N18.31 and Dietary counseling and surveillance Z71.3 [facility] [address] [facility] [address] [place] [address] 04/22/2024 LEE DAVIDYonny Encounter for genera l adult medical examination without abnormal findings Z00.00 ; Essential (primary) hypertension I10 ; Mixed hyperlipidemia E78.2 ; 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 M05.49 ; Morbid (severe) obesity due to excess calories E66.01 and Chronic kidney disease, stage 3a N18.[address] [place] [address] 04/21/[address] [place] [address] 07/02/[address] [place] [address] 10/21/[address] [place] [address] 11/11/[address] [place] [address] 12/01/2023 Winnie Villaseñorum [address] [place] [address] 12/01/2023 Ghadeer Joseloum [address] [place] [address] 12/24/[address] [place] [address] 02/09/2024 Ghadeer Joseloum Essential (primary) hypertension I10 [address] [place] [address] 02/23/2024 Ghadeer Joseloum Hypokalemia E87.[address] [place] [address] 02/25/2024 LEE GUL Essential (primary) hypertension I10 [facility] [address] [facility] [address] [place] [address] 02/26/2024 LEE GUL Essential (primary) hypertension I10 [facility] [address] [facility] [address] [place] [address] 02/26/2024 LEE L [address] [place] [address] 03/16/[address] [place] [address] 04/06/2024 LEE GUL Assessments Encounter Date Diagnosis (ICD Code) Assessment Notes Treatment Notes Treatment Clinical Notes Section Notes 11/02/2023 Mixed hyperlipidemia (ICD-10 - E78.2) Mrs. Salomon is a 62-year-old lady with anemia, hypertension, hyperlipidemia, rheumatoid arthritis, lymphedema and morbid obesity here for blood pressure follow-up. Essential Hypertension. Last time we discontinued Lisinopril. BP sitting was 150/94, standing was 150/80 and supine was 150/90. Patient does not have OH. Advised patient on staying hydrated. Compliant with medication, excercise and decrease salt intake. Mixed hyperlipidemia. continue on atorvastatin 40 mg and recheck lipid panel Morbid obesity. complications of obesity discussed. Advised weight loss, low calorie diet, regular exercise 11/02/2023 Essential (primary) hypertension (ICD-10 - I10) Mrs. Salomon is a 62-year-old lady with anemia, hypertension, hyperlipidemia, rheumatoid arthritis, lymphedema and morbid obesity here for blood pressure follow-up. Essential Hypertension. Last time we discontinued Lisinopril. BP sitting was 150/94, standing was 150/80 and supine was 150/90. Patient does not have OH. Advised patient on staying hydrated. Compliant with medication, excercise and decrease salt intake. Mixed hyperlipidemia. continue on atorvastatin 40 mg and recheck lipid panel Morbid obesity. complications of obesity discussed. Advised weight loss, low calorie diet, regular exercise 01/28/2024 Mixed hyperlipidemia (ICD-10 - E78.2) Mrs. Salomon is a 62-year-old lady with anemia, hypertension, hyperlipidemia, rheumatoid arthritis, lymphedema and morbid obesity here for medication discussion. Plan as follows: Essential Hypertension. - BP is running high today. Started patient on combination Lisinopril and HCTZ. Reduce salt intake. Increase hydration. Continue on the restricted diet. She lost 2 lbs since the last visit. Check BP during the next visit. Mixed hyperlipidemia. Continue on atorvastatin 40 mg and recheck lipid panel Discussed with the patient the benefits of staying on BP medication to avoid the risk of having heart attack. Same thing with statins, given the fact that Lipid is well controlled. Statin decreases mortality rate and decreases inflammation in the body. If she loses weight and exercises then we can consider cutting down on the medications. Screening BW before next visit General concerns have been discussed I have rendered the services for this patient under direct supervision of Dr. Robles, who did see the patient 01/28/2024 Essential (primary) hypertension (ICD-10 - I10) Mrs. Salomon is a 62-year-old lady with anemia, hypertension, hyperlipidemia, rheumatoid arthritis, lymphedema and morbid obesity here for medication discussion. Plan as follows: Essential Hypertension. - BP is running high today. Started patient on combination Lisinopril and HCTZ. Reduce salt intake. Increase hydration. Continue on the restricted diet. She lost 2 lbs since the last visit. Check BP during the next visit. Mixed hyperlipidemia. Continue on atorvastatin 40 mg and recheck lipid panel Discussed with the patient the benefits of staying on BP medication to avoid the risk of having heart attack. Same thing with statins, given the fact that Lipid is well controlled. Statin decreases mortality rate and decreases inflammation in the body. If she loses weight and exercises then we can consider cutting down on the medications. Screening BW before next visit General concerns have been discussed I have rendered the services for this patient under direct supervision of Dr. Robles, who did see the patient 02/09/2024 Essential (primary) hypertension (ICD-10 - I10) 02/23/2024 Hypokalemia (ICD-10 - E87.6) 02/25/2024 Mixed hyperlipidemia (ICD-10 - E78.2) Mrs. Salomon is a 63-year-old lady with anemia, hypertension, hyperlipidemia, rheumatoid arthritis, lymphedema and morbid obesity here for medication discussion. Plan is as follows: Essential Hypertension. We recently started her on Lisinopril-HCTZ 10-12.5 MG which she tolerated fine. Blood pressure well controlled on current regimen. Check basic panel. Mixed hyperlipidemia. Total cholesterol 203. Triglycerides 240. VLDL 41. LDL 109 which were all high. Suggested dietary modifications. Increase Atorvastatin to 20 MG. Check lipid panel. Chronic kidney disease stage 3a. Her GFR was normal last year. Before blood work she had a stomach cleanse and she is also on furosemide and she was dehydrated. Repeat basic panel nonfasting and will go from there. Morbid obesity. Advised dietary restrictions and regimental exercise. Goal is to lose 5-6 lbs a month. Blood work reviewed with patient and questions answered. General health concerns discussed with patient. Scribe services used to formulate this note under HIPAA compliance and under [place] law mandated for scribe services. Patient aware of service. Verbal consent and written consent taken from the patient. Patient understands and verbalizes understanding of the scribes services and all questions answered regarding scribes services. Patient agrees to use of scribes services. 02/25/2024 Essential (primary) hypertension (ICD-10 - I10) Mrs. Salomon is a 63-year-old lady with anemia, hypertension, hyperlipidemia, rheumatoid arthritis, lymphedema and morbid obesity here for medication discussion. Plan is as follows: Essential Hypertension. We recently started her on Lisinopril-HCTZ 10-12.5 MG which she tolerated fine. Blood pressure well controlled on current regimen. Check basic panel. Mixed hyperlipidemia. Total cholesterol 203. Triglycerides 240. VLDL 41. LDL 109 which were all high. Suggested dietary modifications. Increase Atorvastatin to 20 MG. Check lipid panel. Chronic kidney disease stage 3a. Her GFR was normal last year. Before blood work she had a stomach cleanse and she is also on furosemide and she was dehydrated. Repeat basic panel nonfasting and will go from there. Morbid obesity. Advised dietary restrictions and regimental exercise. Goal is to lose 5-6 lbs a month. Blood work reviewed with patient and questions answered. General health concerns discussed with patient. Scribe services used to formulate this note under HIPAA compliance and under [place] law mandated for scribe services. Patient aware of service. Verbal consent and written consent taken from the patient. Patient understands and verbalizes understanding of the scribes services and all questions answered regarding scribes services. Patient agrees to use of scribes services. 04/22/2024 Encounter for general adult medical examination [...] lives by herself. She will benefit from EQUIPMENT TECH for a few hours a week to help her with laundry, cleaning, shopping, showering etc. Blood work reviewed and questions answered 10/23/2023 Dizziness and giddiness (ICD-10 - R42) Mrs. Salomon is a 62-year-old lady with anemia, hypertension, hyperlipidemia, rheumatoid arthritis, lymphedema and morbid obesity here for blood pressure follow-up. Patient was at the Neurology office October 22,seen by Dr. Guerrero when they noticed that the OH BP was 159/103 with pulse 76 (sitting) and 138/98 (standing) with increase of BP in 1 minute with 21 pt drop in BP. Plan as follows: - Dizziness/OH: - BP on repeat while sitting it is 148/82, p74 but standing was 170/100 p 71. - We will discontinue lisinopril and recheck BP in 2 weeks. - Discussed cutting back on sodium intake, advised appropriate hydration, cardio excercises and weight loss. - Update: I called the patient and agrees with the plan. Nothing in the differential warrants any red flag symptoms, but the patient was informed that should they develop any new or worsening of symptoms they need to go to the ER immediately. 10/23/2023 Essential (primary) hypertension (ICD-10 - I10) Mrs. Salomon is a 62-year-old lady with anemia, hypertension, hyperlipidemia, rheumatoid arthritis, lymphedema and morbid obesity here for blood pressure follow-up. Patient was at the Neurology office October 22,seen by Dr. Guerrero when they noticed that the OH BP was 159/103 with pulse 76 (sitting) and 138/98 (standing) with increase of BP in 1 minute with 21 pt drop in BP. Plan as follows: - Dizziness/OH: - BP on repeat while sitting it is 148/82, p74 but standing was 170/100 p 71. - We will discontinue lisinopril and recheck BP in 2 weeks. - Discussed cutting back on sodium intake, advised appropriate hydration, cardio excercises and weight loss. - Update: I called the patient and agrees with the plan. Nothing in the differential warrants any red flag symptoms, but the patient was informed that should they develop any new or worsening of symptoms they need to go to the ER immediately. 02/26/2024 Essential (primary) hypertension (ICD-10 - I10) 02/25/2024 Essential (primary) hypertension (ICD-10 - I10) 10/23/2023 Orthostatic hypotension (ICD-10 - I95.1) Mrs. Salomon is a 62-year-old lady with anemia, hypertension, hyperlipidemia, rheumatoid arthritis, lymphedema and morbid obesity here for blood pressure follow-up. Patient was at the Neurology office October 22,seen by Dr. Guerrero when they noticed that the OH BP was 159/103 with pulse 76 (sitting) and 138/98 (standing) with increase of BP in 1 minute with 21 pt drop in BP. Plan as follows: - Dizziness/OH: - BP on repeat while sitting it is 148/82, p74 but standing was 170/100 p 71. - We will discontinue lisinopril and recheck BP in 2 weeks. - Discussed cutting back on sodium intake, advised appropriate hydration, cardio excercises and weight loss. - Update: I called the patient and agrees with the plan. Nothing in the differential warrants any red flag symptoms, but the patient was informed that should they develop any new or worsening of symptoms they need to go to the ER immediately. 04/22/2024 Essential (primary) hypertension (ICD-10 - I10) [...] lives by herself. She will benefit from EQUIPMENT TECH for a few hours a week to help her with laundry, cleaning, shopping, showering etc. Blood work reviewed and questions answered 02/25/2024 Morbid (severe) obesity due to excess calories (ICD-10 - E66.01) Mrs. Salomon is a 63-year-old lady with anemia, hypertension, hyperlipidemia, rheumatoid arthritis, lymphedema and morbid obesity here for medication discussion. Plan is as follows: Essential Hypertension. We recently started her on Lisinopril-HCTZ 10-12.5 MG which she tolerated fine. Blood pressure well controlled on current regimen. Check basic panel. Mixed hyperlipidemia. Total cholesterol 203. Triglycerides 240. VLDL 41. LDL 109 which were all high. Suggested dietary modifications. Increase Atorvastatin to 20 MG. Check lipid panel. Chronic kidney disease stage 3a. Her GFR was normal last year. Before blood work she had a stomach cleanse and she is also on furosemide and she was dehydrated. Repeat basic panel nonfasting and will go from there. Morbid obesity. Advised dietary restrictions and regimental exercise. Goal is to lose 5-6 lbs a month. Blood work reviewed with patient and questions answered. General health concerns discussed with patient. Scribe services used to formulate this note under HIPAA compliance and under [place] law mandated for scribe services. Patient aware of service. Verbal consent and written consent taken from the patient. Patient understands and verbalizes understanding of the scribes services and all questions answered regarding scribes services. Patient agrees to use of scribes services. 01/28/2024 Morbid (severe) obesity due to excess calories (ICD-10 - E66.01) Mrs. Salomon is a 62-year-old lady with anemia, hypertension, hyperlipidemia, rheumatoid arthritis, lymphedema and morbid obesity here for medication discussion. Plan as follows: Essential Hypertension. - BP is running high today. Started patient on combination Lisinopril and HCTZ. Reduce salt intake. Increase hydration. Continue on the restricted diet. She lost 2 lbs since the last visit. Check BP during the next visit. Mixed hyperlipidemia. Continue on atorvastatin 40 mg and recheck lipid panel Discussed with the patient the benefits of staying on BP medication to avoid the risk of having heart attack. Same thing with statins, given the fact that Lipid is well controlled. Statin decreases mortality rate and decreases inflammation in the body. If she loses weight and exercises then we can consider cutting down on the medications. Screening BW before next visit General concerns have been discussed I have rendered the services for this patient under direct supervision of Dr. Robles, who did see the patient 11/02/2023 Morbid (severe) obesity due to excess calories (ICD-10 - E66.01) Mrs. Salomon is a 62-year-old lady with anemia, hypertension, hyperlipidemia, rheumatoid arthritis, lymphedema and morbid obesity here for blood pressure follow-up. Essential Hypertension. Last time we discontinued Lisinopril. BP sitting was 150/94, standing was 150/80 and supine was 150/90. Patient does not have OH. Advised patient on staying hydrated. Compliant with medication, excercise and decrease salt intake. Mixed hyperlipidemia. continue on atorvastatin 40 mg and recheck lipid panel Morbid obesity. complications of obesity discussed. Advised weight loss, low calorie diet, regular exercise 11/02/2023 Dietary counseling and surveillance (ICD-10 - Z71.3) Mrs. Salomon is a 62-year-old lady with anemia, hypertension, hyperlipidemia, rheumatoid arthritis, lymphedema and morbid obesity here for blood pressure follow-up. Essential Hypertension. Last time we discontinued Lisinopril. BP sitting was 150/94, standing was 150/80 and supine was 150/90. Patient does not have OH. Advised patient on staying hydrated. Compliant with medication, excercise and decrease salt intake. Mixed hyperlipidemia. continue on atorvastatin 40 mg and recheck lipid panel Morbid obesity. complications of obesity discussed. Advised weight loss, low calorie diet, regular exercise 01/28/2024 Dietary counseling and surveillance (ICD-10 - Z71.3) Mrs. Salomon is a 62-year-old lady with anemia, hypertension, hyperlipidemia, rheumatoid arthritis, lymphedema and morbid obesity here for medication discussion. Plan as follows: Essential Hypertension. - BP is running high today. Started patient on combination Lisinopril and HCTZ. Reduce salt intake. Increase hydration. Continue on the restricted diet. She lost 2 lbs since the last visit. Check BP during the next visit. Mixed hyperlipidemia. Continue on atorvastatin 40 mg and recheck lipid panel Discussed with the patient the benefits of staying on BP medication to avoid the risk of having heart attack. Same thing with statins, given the fact that Lipid is well controlled. Statin decreases mortality rate and decreases inflammation in the body. If she loses weight and exercises then we can consider cutting down on the medications. Screening BW before next visit General concerns have been discussed I have rendered the services for this patient under direct supervision of Dr. Robles, who did see the patient 02/25/2024 Chronic kidney disease, stage 3a (ICD-10 - N18.31) Mrs. Salomon is a 63-year-old lady with anemia, hypertension, hyperlipidemia, rheumatoid arthritis, lymphedema and morbid obesity here for medication discussion. Plan is as follows: Essential Hypertension. We recently started her on Lisinopril-HCTZ 10-12.5 MG which she tolerated fine. Blood pressure well controlled on current regimen. Check basic panel. Mixed hyperlipidemia. Total cholesterol 203. Triglycerides 240. VLDL 41. LDL 109 which were all high. Suggested dietary modifications. Increase Atorvastatin to 20 MG. Check lipid panel. Chronic kidney disease stage 3a. Her GFR was normal last year. Before blood work she had a stomach cleanse and she is also on furosemide and she was dehydrated. Repeat basic panel nonfasting and will go from there. Morbid obesity. Advised dietary restrictions and regimental exercise. Goal is to lose 5-6 lbs a month. Blood work reviewed with patient and questions answered. General health concerns discussed with patient. Scribe services used to formulate this note under HIPAA compliance and under [place] law mandated for scribe services. Patient aware of service. Verbal consent and written consent taken from the patient. Patient understands and verbalizes understanding of the scribes services and all questions answered regarding scribes services. Patient agrees to use of scribes services. 04/22/2024 Mixed hyperlipidemia (ICD-10 - E78.2) Mrs. [...] lives by herself. She will benefit from EQUIPMENT TECH for a few hours a week to [...] lives by herself. She will benefit from EQUIPMENT TECH for a few hours a week to help her with laundry, cleaning, shopping, showering etc. Blood work reviewed and questions answered 02/25/2024 Dietary counseling and surveillance (ICD-10 - Z71.3) Mrs. Salomon is a 63-year-old lady with anemia, hypertension, hyperlipidemia, rheumatoid arthritis, lymphedema and morbid obesity here for medication discussion. Plan is as follows: Essential Hypertension. We recently started her on Lisinopril-HCTZ 10-12.5 MG which she tolerated fine. Blood pressure well controlled on current regimen. Check basic panel. Mixed hyperlipidemia. Total cholesterol 203. Triglycerides 240. VLDL 41. LDL 109 which were all high. Suggested dietary modifications. Increase Atorvastatin to 20 MG. Check lipid panel. Chronic kidney disease stage 3a. Her GFR was normal last year. Before blood work she had a stomach cleanse and she is also on furosemide and she was dehydrated. Repeat basic panel nonfasting and will go from there. Morbid obesity. Advised dietary restrictions and regimental exercise. Goal is to lose 5-6 lbs a month. Blood work reviewed with patient and questions answered. General health concerns discussed with patient. Scribe services used to formulate this note under HIPAA compliance and under [place] law mandated for scribe services. Patient aware of service. Verbal consent and written consent taken from the patient. Patient understands and verbalizes understanding of the scribes services and all questions answered regarding scribes services. Patient agrees to use of scribes services. 04/22/2024 Morbid (severe) obesity due to excess [...] lives by herself. She will benefit from EQUIPMENT TECH for a few hours a week to [...] lives by herself. She will benefit from EQUIPMENT TECH for a few hours a week to help her with laundry, cleaning, shopping, showering etc. Blood work reviewed and questions answered Plan Of Treatment Pending Test Test Name Order Date Echocardiogram 01/28/2024 MAMMOGRAM, SCREENING 04/22/2024 BASIC METABOLIC PANEL 06/26/2022 CBC with Diff, Platelet, [id number] 10/16 Albumin/Creatinine Ratio,Urine-[id number] Lipid Panel-[id number] 11/02/2023 Basic Metabolic Panel [phone] Comp. Metabolic Panel [id number] 2023 Future Test Test Name Order Date Basic Metabolic Panel [phone] Insurance Providers Payer Name Payer Address Payer Phone Subscriber Number Group Number Insured Name Patient Relationship to Insured Coverage Start Date Coverage End Date [employer] INSURANCE [address] [place] [address] [id number] Rita Salomon Self - patient is the insured 4 [place] [address] [place] [address] [id number] Rita Salomon Self - patient is the insured 4 Medical (General) History Medical History History ICD Code anemia- Dr Hankins hypertension, benign hyperlipidemia rheumatoid arthritis- Dr Alicia PMR Eczema and she DR Hardy Concussion and see Dr Alonso Surgical History Surgery Date(Month/Year) tonsillectomy section
[2024-04-28 09:15] LABS: MANUAL DIFF FLAG NO
[2024-04-28 09:43] LABS: Basophils Absolute Auto 0.1 X10*3/uL (0.0-0.2); Basophils Percent Auto 1.2 % (0-2); Eosinophils Absolute Auto 0.1 X10*3/uL (0.0-0.4); Eosinophils Percent Auto 3.1 % (0-4); Hematocrit 33.5 % (37.0-47.0); Hemoglobin 10.9 g/dl (12.0-16.0); Imm Gran Abs Auto 0.01 X10*3/uL (0.00-0.03); Imm Gran Pct Auto 0.2 % (0.0-0.4); Lymphocytes Absolute Auto 1.3 X10*3/uL (1.2-4.9); Lymphocytes Percent Auto 29.8 % (20-40); Mean Corpuscular HGB Conc 32.5 g/dl (31.0-35.0); Mean Corpuscular Hemoglobin 31.9 pg (27.0-33.0); Mean Platelet Volume 10.1 fL (9.4-12.3); Monocytes Absolute Auto 0.5 X10*3/uL (0.1-1.2); Neutrophils Absolute Auto 2.3 x10*3/uL (2.0-8.3); Neutrophils Percent Auto 53.7 % (45-73); Platelet Count 176 X10*3/uL (160-400); Red Blood Count 3.42 X10*6/uL (4.20-5.50); Red Cell Distribution Width 12.4 % (11.0-16.0); White Blood Count 4.3 X10*3/uL (4.8-10.8)
[2024-04-28 09:46] LABS: Prothrombin Time 11.3 SEC (10.9-12.4)
[2024-04-28 10:10] LABS: Anion Gap 10 (12-20); Blood Urea Nitrogen 16 mg/dL (9-16); Carbon Dioxide 30 mmol/L (22-29); Chloride 108 mmol/L (96-108); Estimated Glomerular Filt Rate 60; Potassium 3.3 mmol/L (3.3-5.1); Sodium 145 mmol/L (135-145)
[2024-04-28 11:07] LABS: Protein/Creatinine Ratio, Ur 0.13 (<0.2); Total Protein Urine Random 33 mg/dL (<12)
[2024-04-29 15:38] LABS: Complement C3 153 mg/dL (83-193)
[2024-05-03 08:04] LABS: Anti DNA DS Antibody <1 IU/mL; Anti Glomerular Basement Memb <1.0 AI; Myeloperoxidase Antibody <1.0 AI; Proteinase 3 PR3 Antibodies <1.0 AI
[2024-05-06 15:53] LABS: IgA 239 mg/dL (70-320); IgG 1045 mg/dL (600-1540); IgM 31 mg/dL (50-300)
[2024-05-07 15:08] LABS: Aldosterone/Renin Ratio 31.3 Ratio (0.9-28.9); Plasma Renin Activity 0.32 ng/mL/h (0.25-5.82)
[2024-05-08 11:08] LABS: Renin 0.54 ng/mL/h (0.25-5.82)
== END 2024-04-28 08:43 | disposition home or self-care (01) ==
LOC: HO.US 08:42
PROVIDERS: PCP Hospitalist; Visit Provider Internal Medicine Nephrology
DX: I10 Essential (primary) hypertension (principal); N17.9 Acute kidney failure, unspecified
CPT/HCPCS: 36415; 76775; 80051; 82088; 82310; 82565; 82570; 82784; 83520; 84156; 84244; 84520; 85025; 85610; 86021; 86160; 86225; 86334; 93975

== ENCOUNTER 2024-05-05 10:25 | Outpatient (AMB) | payer OTHER, MEDICAID, SELFPAY ==
--- OUTSIDE RECORDS SUMMARY | 2024-05-05 10:29 | XMS_ITS | Patient Health Record ---
Author Organization [facility] Address [address] [place] [address] [address] [place] [address] Care Team Providers Care Development Analyst Name Role Phone JESUS ROBLES Primary Care Provider Winnie Louise Unavailable [phone] Allergies Allergen (clinical drug ingredient) Drug/Non Drug [...] Active Results Component Value Reference Range Notes Comp. Metabolic Panel [id number] Reviewed date:02/25/2024 01:00:44 PM Interpretation: Performing Lab:[facility], [address] [place] [address], [place], Phone - [phone], Director - Cydney Notes/Report: Glucose 82 70-99 [...] 0-40 IU/L ALT (SGPT) 23 0-32 IU/L Lipid Panel-[id number] Reviewed date:02/25/2024 01:00:58 PM Interpretation: Performing Lab:[facility] [place], Phone - [phone], Director - Cydney Notes/Report: Cholesterol, Total 203 100-199 mg/dL Triglycerides 240 0-149 mg/dL HDL Cholesterol 53 >39 mg/dL VLDL Cholesterol Nir 41 5-40 mg/dL LDL Chol Calc (NIH) 109 0-99 mg/dL Albumin/Creatinine Ratio,Uri ne-[id number] Reviewed date:02/25/2024 01:00:50 PM Interpretation: Performing Lab:[facility], [address] [place] [address], Phone - [phone], Director - Cydney Notes/Report: Creatinine, Urine 233.9 Not Estab. mg/dL Albumin, Urine 68.8 Not Estab. ug/mL Alb/Creat Ratio 29 0-29 mg/g creat Normal: 0 - 29 Moderately increased: 30 - 300 Severely increased: >300 Lipid Panel-[id number] Reviewed date:2024 09:32:03 AM Interpretation: Performing Lab:[facility] [place], [address] [place] [address], Phone - [phone], Director - Cydney Notes/Report: Clinical Information:SRC: Cholesterol, Total 184 100-199 mg/dL Triglycerides 219 0-149 mg/dL HDL Cholesterol 55 >39 mg/dL VLDL Cholesterol Nir 37 5-40 mg/dL LDL Chol Calc (NIH) 92 0-99 mg/dL Basic Metabolic Panel [id number] Reviewed date:04/06/2024 12:28:34 PM Interpretation: Performing Lab:[facility] [place], Phone - [phone], Director - Cydney Notes/Report: Clinical Information:SRC: Glucose 86 70-99 mg/dL BUN 10 8-27 mg/dL Creatinine 1.10 0.57-1.00 mg/dL eGFR 57 >59 mL/min/1.73 BUN/Creatinine Ratio 9 12-28 Sodium 143 134-144 mmol/L Potassium 3.4 3.5-5.2 mmol/L Chloride 102 96-106 mmol/L Carbon Dioxide, Total 27 20-29 mmol/L Reason For Referral Reason Father positive for Transthyretin Amyloidosis- 50 percent chance of carrying the gene. 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) Referral Organization [facility] Referring Provider First Name Winnie Referring Provider Last Name Dani Referred Provider Specialty Certified Optician General Notes faxed over to [facility] [place], they will call ptClay Brittney 01/29/2024 02:08:55 PM > Referral Priority Urgent Reason Evaluation and manag ement Diagnosis 1 Chronic kidney disea se, stage 3a (N18.31) Referral Organization [facility] Referring Provider First Name JESUS Referring Provider Last Name TRAVIS Referring Provider Speciality Internal M edicine Referred Provider Specialty Neurology General Notes Referral sent to [facility] ([address] [place] [address] Drive, [address], [place] [address], ) - Office will call patient for [...] Once a day for 90 days Active [place] 3 1200 MG 1 capsule Orally Once [...] Status W/U Status Risk Notes Problem Anemia (381702466) Anemia, unspecified (D64.9) Active confirmed Problem Morbid obesity (disorder) (630008555) Morbid (severe) obesity due to excess calories (E66.01) Active confirmed Problem Mixed hyperlipidemia (178734361) Mixed hyperlipidemia (E78.2) Active confirmed Problem Lymphedema (485541778) Lymphedema, not elsewhere classified (I89.0) Active confirmed Problem Myopathy due to rheumatoid arthritis (125544218) 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 Problem Paresthesia (finding) (50236451) Paresthesia of skin (R20.2) Active confirmed Problem Dizziness and giddiness (146620307) Dizziness and giddiness (R42) Active confirmed Problem Abnormal results of liver function studies (572460182) Abnormal results of liver function studies (R94.5) Active confirmed Problem Essential hypertension (52480741) Essential (primary) hypertension (I10) Active confirmed Problem Wild type ATTR amyloidosis (disorder) (078764925) 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) Active confirmed Problem Chronic kidney disease stage 3A (disorder) (042423976) Chronic kidney disease, stage 3a (N18.31) Active confirmed Vital Signs Heart Rate 66 /min 04/22/2024 Temperature 96.8 degrees Fahrenheit 04/22/2024 Blood pressure diastolic 72 mm Hg 04/22/2024 Oximetry 95 % 04/22/2024 Height 64 in 04/22/2024 Blood pressure systolic 126 mm Hg 04/22/2024 Weight 239.5 lbs 04/22/2024 BMI 41.11 kg/m2 04/22/2024 Encounters Encounter Location Date Provider Diagnosis [address] [address] 05/22/2023 JESUS ROBLES [address] [address] 10/23/2023 Ghadeer Mazloum Essential (primary) hypertension I10 ; Dizziness and giddiness R42 and Orthostatic hypotension I95.[address] [place] [address] 11/02/2023 Ghadeer Mazloum Essential (primary) hypertension I10 ; Mixed hyperlipidemia E78.2 ; Morbid (severe) obesity due to excess calories E66.01 and Dietary counseling and surveillance Z71.[address] [address] 01/28/2024 Ghadeer Mazloum Mixed hyperlipidemia E78.2 ; Essential (primary) hypertension I10 ; Morbid (severe) obesity due to excess calories E66.01 and Dietary counseling and surveillance Z71.[address] [address] 02/25/2024 LEE GU Essential (primary) hypertension I10 ; Mixed hyperlipidemia E78.2 ; Morbid (severe) obesity due to excess calories E66.01 ; Chronic kidney disease, stage 3a N18.31 and Dietary counseling and surveillance Z71.3 [facility] [address] [place] [address] 04/22/2024 LEE DAVIDYonny Encounter for genera l adult medical examination without abnormal findings Z00.00 ; Essential (primary) hypertension I10 ; Mixed hyperlipidemia E78.2 ; 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 M05.49 ; Morbid (severe) obesity due to excess calories E66.01 and Chronic kidney disease, stage 3a N18.[address] [place] [address] 04/21/[address] [place] [address] 07/02/[address] [place] [address] 10/21/[address] [place] [address] 11/11/[address] [place] [address] 12/01/2023 Winnie Villaseñorum [address] [place] [address] 12/01/2023 Ghadeer Joseloum [address] [place] [address] 12/24/[address] [place] [address] 02/09/2024 Ghadeer Joseloum Essential (primary) hypertension I10 [address] [place] [address] 02/23/2024 Ghadeer Joseloum Hypokalemia E87.[address] [place] [address] 02/25/2024 LEE GUL Essential (primary) hypertension I10 [address] [place] [address] 02/26/2024 LEE GUL Essential (primary) hypertension I10 [address] [place] [address] 02/26/[address] [place] [address] 03/16/[address] [place] [address] 04/06/2024 LEE GUL Assessments Encounter Date Diagnosis (ICD Code) Assessment Notes Treatment Notes Treatment Clinical Notes Section Notes 10/23/2023 Dizziness and giddiness (ICD-10 - R42) [...] need to go to the ER immediately. 11/02/2023 Mixed hyperlipidemia (ICD-10 - E78.2) Mrs. [...] loss, low calorie diet, regular exercise 01/28/2024 Essential (primary) hypertension (ICD-10 - I10) [...] - I10) 02/23/2024 Hypokalemia (ICD-10 - E87.6) 01/28/2024 Mixed hyperlipidemia (ICD-10 - E78.2) Mrs. [...] Robles, who did see the patient 02/25/2024 Mixed hyperlipidemia (ICD-10 - E78.2) Mrs. [...] this note under HIPAA compliance and under [place] law mandated for scribe services. Patient aware [...] this note under HIPAA compliance and under [place] law mandated for scribe services. Patient aware of service. Verbal consent and written consent taken from the patient. Patient understands and verbalizes understanding of the scribes services and all questions answered regarding scribes services. Patient agrees to use of scribes services. 02/25/2024 Essential (primary) hypertension (ICD-10 - I10) 02/26/2024 Essential (primary) hypertension (ICD-10 - I10) 04/22/2024 Encounter for general adult medical examination [...] lives by herself. She will benefit from [employer] for a few hours a week to [...] stage IIIa. She follows up with Dr. Reyse. Her potassium is low and she is [...] lives by herself. She will benefit from [employer] for a few hours a week to [...] this note under HIPAA compliance and under [place] law mandated for scribe services. Patient aware [...] weight loss, low calorie diet, regular exercise 10/23/2023 Orthostatic hypotension (ICD-10 - I95.1) Mrs. Salomon is a 62-year-old lady with anemia, hypertension, hyperlipidemia, rheumatoid arthritis, lymphedema and morbid obesity here for blood pressure follow-up. Patient was at the Neurology office Thursday, October 22,seen by Dr. Guerrero when they [...] need to go to the ER immediately. 11/02/2023 Dietary counseling and surveillance (ICD-10 - [...] weight loss, low calorie diet, regular exercise 02/25/2024 Chronic kidney disease, stage 3a (ICD-10 [...] this note under HIPAA compliance and under [place] law mandated for scribe services. Patient aware of service. Verbal consent and written consent taken from the patient. Patient understands and verbalizes understanding of the scribes services and all questions answered regarding scribes services. Patient agrees to use of scribes services. 01/28/2024 Dietary counseling and surveillance (ICD-10 - [...] Dr. Robles, who did see the patient 04/22/2024 Mixed hyperlipidemia (ICD-10 - E78.2) Mrs. [...] lives by herself. She will benefit from [employer] for a few hours a week to [...] lives by herself. She will benefit from [employer] for a few hours a week to [...] this note under HIPAA compliance and under [place] law mandated for scribe services. Patient aware [...] lives by herself. She will benefit from SU[employer] for a few hours a week to [...] lives by herself. She will benefit from [employer] for a few hours a week to help her with laundry, cleaning, shopping, showering etc. Blood work reviewed and questions answered Plan Of Treatment Pending Test Test Name Order Date Echocardiogram 01/28/2024 MAMMOGRAM, SCREENING 04/22/2024 BASIC METABOLIC PANEL 06/26/2022 CBC with Diff, Platelet, [id number] 10/16 Albumin/Creatinine Ratio,Urine-[id number] Lipid Panel-[id number] 11/02/2023 Basic Metabolic Panel [phone] Comp. Metabolic Panel [id number] 2023 Future Test Test Name Order Date Basic Metabolic Panel [phone] Insurance Providers Payer Name Payer Address Payer Phone Subscriber Number Group Number Insured Name Patient Relationship to Insured Coverage Start Date Coverage End Date [employer] INSUR[employer] [address] [place] [address] [id number] Rita Salomon Self - patient is the insured 4 [employer] [place] [employer] [address] [place] [address] [id number] Rita Salomon Self - patient is the insured 4 Medical (General) History Medical History History ICD Code anemia- Dr Hankins hypertension, benign hyperlipidemia rheumatoid arthritis- Dr Alicia PMR Eczema and she DR Hardy Concussion and see Dr Alonso Surgical History Surgery Date(Month/Year) tonsillectomy section
--- OUTSIDE RECORDS SUMMARY | 2024-05-05 10:29 | XMS_ITS ---
Author Organization [employer] Address [address] [facility] [address] [place] [address] Care Team Providers Care Web Retailer Name Role Phone JESUS ROBLES Primary Care Provider [phone] Allergies Allergen (clinical drug ingredient) Drug/Non [...] 1 tablet Orally Once a day Not-Taking [place] 3 1200 MG 1 capsule Orally Once [...] 04/22/2024 Encounters Encounter Location Date Provider Diagnosis [facility] [address] [facility] [address] [place] [address] 04/22/2024 JESUS ROBLES Encounter for genera l [...] lives by herself. She will benefit from FRONT OFFICE ASSISTANT for a few hours a week to [...] lives by herself. She will benefit from FRONT OFFICE ASSISTANT for a few hours a week to [...] lives by herself. She will benefit from FRONT OFFICE ASSISTANT for a few hours a week to [...] lives by herself. She will benefit from FRONT OFFICE ASSISTANT for a few hours a week to [...] lives by herself. She will benefit from FRONT OFFICE ASSISTANT for a few hours a week to [...] lives by herself. She will benefit from FRONT OFFICE ASSISTANT for a few hours a week to help her with laundry, cleaning, shopping, showering etc. Blood work reviewed and questions answered Plan Of Treatment Pending Test Test Name Order Date MAMMOGRAM, SCREENING 04/22/2024 Future Test Test Name Order Date Basic Metabolic Panel [id number] Next Appt Details Follow Up: 6 Months, Reason: Progress Notes * Trang SALOMONB: 9[birth year] (64 yo F)Acc No.[id number]:04/22/2024 Progress Note Patient:?Rita SALOMON Provider:?JESUS ROBLES MD :1960???Age:64 Y???Sex:Female D ate:04/22/2024 Address:[address] [place], [place] [id number] Subjective: * Chief Complaints: * ???MEDICARE WELLNESS [...] a day , Notes to Pharmacist: Dr. Clyaton Ferrous Sulfate 325 (65 Fe) MG Tablet [...] 1 TABLET BY MOUTH EVERY DAY Not- CggvfeWnN26 100 MG Capsule 1 capsule orally once [...] Adult , Notes to Pharmacist: one dailyNot-Taking [place] 3 1200 MG Capsule 1 capsule Orally [...] in. * ???Past Orders: ???Lab:Basic Metabolic Panel [id number] (Order Date - 02/25/2024) (Collection Date & [...] 57 L >59 - mL/min/1. 73 ???Lab:Lipid Panel-[id number] (O rder Date - 02/25/2024) (Collection Date & Time - 03/23/2024) ? Value Reference Range ?Cholesterol, Total 184 1 00-199 - mg/dL ?Triglycerides 219 H 0-149 - mg/dL ?HDL Cholesterol 55 >39 - mg/dL ?VLDL Cholesterol Nir 37 5-40 - mg/dL ?LDL Chol Calc (NIH) 92 0-99 - mg/dL ???Lab:Albumin/Creatinine Ra jennings,Urine-[id number] (Order Date - 01/28/2024) (Collection Date & [...] and lower extremities, sensory exam intact.?FEMALE GENITOURINARY:?__.?MALE GENITOURINARY:?__.?PODIATRIC:?Normal.?Electrician Chief? .? Assessment: * Assessment: 1.?Encounter for general [...] lives by herself.? She will benefit from FRONT OFFICE ASSISTANT for a few hours a week to help her with laundry, cleaning, shopping, showering etc. Blood work reviewed and questions answered Plan: * Treatment: 2.?Essential (primary) hyper tension?LAB: Basic Metabolic Panel [id number] (Ordered for 04/22/2024) * Procedure Codes:?3078F DIAST BP < 80 MM [id number] SYST BP LT 130 MM KUI3921 ANNUAL WELLNESS VST; PPS SUBSQT [id number] ELECTROCARDIOGRAM, [id number] BODY MASS INDEX [id number] ANNUAL DEPRESSION SCREENING 15 DTHY0898 ANNUAL ALCOHOL MISUSE SCREEN 15 [id number] ELDER MALTX SCR DOC NEG NO F/U AUFC3529 Pt scrn tbco id as non [id number] ADVNC CARE PLAN IN RD * Preventive [...] COLONOSCOPY NO EYE EXAM 04/10 Dr Garrett SAND SLINGER OPERATOR NO MAMMOGRAM NO This plan was discussed, printed, and handed to patient. * Follow Up:?6 Months * * Sign off status: Completed true * Provider:?JESUS ROBLES MD Date:?04/22 Generated for [place] prieto/Desire/eTrickitting on:?05/05/2024 10:29 AM EST History and Physical Notes * [...] Normal Psychiatry Normal OROPHARYNX Normal SINUSES Normal Electrician Chief
--- OUTSIDE RECORDS SUMMARY | 2024-05-05 10:29 | XMS_ITS ---
Author Organization [facility] Address [address] [facility] [address] [place] [address] Care Team Providers Care Tours Captain Name Role Phone JESUS ROBLES Primary Care Provider REASON FOR VISIT lab results Encounters Encounter Location Date Provider Diagnosis [facility] [address] [address] 04/06/2024 JESUS ROBLES Plan Of Treatment No Information Progress Notes * Trang SALOMONB: 9[birth year] (64 yo F)Acc No.[id number]:04/06/2024 Patient:?Rita SALOMON :1960???Age:63 Y???Sex:Female Address:[address] [place] [phone] * true * Date:? Generated for Mdaison prieto/Desire/eTransmitting on:?05/05/2024 10:29 AM EST
--- OUTSIDE RECORDS SUMMARY | 2024-05-05 10:29 | XMS_ITS ---
Author Organization [facility] Address [address] [facility] [address] [place] [address] Care Team Providers Care Settlement Agent Name Role Phone JESUS ROBLES Primary Care Provider REASON FOR VISIT Klor-Con inquiry Encounters Encounter Location Date Provider Diagnosis [facility] [address] [facility] [address] [place] [address] 04/21/2024 JESUS ROBLES Plan Of Treatment No Information Progress Notes * Trang SALOMONB: [birth year] (64 yo F)Acc No.[id number]:04/21/2024 Patient:?Rita SALOMON :1960???Age:64 Y???Sex:Female Address:[address] [place] [phone] * * Date:?
--- NOTE | 2024-05-05 10:30 | HO.NEPHOV_ITS ---
Vital Signs 05/05/24 10:35 Height 5 ft 2 in Weight 234 lb BMI 42.8 Intake Visit Reasons: Dec follow up w/labs Account Executive [employer] Required: No Accompanied by: Self / Same As Patient Allergies doxycycline Allergy (Verified 05/05/24 10:33) Unknown erythromycin base Allergy (Verified 05/05/24 10:33) Unknown kiwi Allergy (Verified 05/05/24 10:33) Unknown latex Allergy (Verified 05/05/24 10:33) Unknown penicillamine Allergy (Verified 05/05/24 10:33) Unknown strawberry Allergy (Verified 05/05/24 10:33) Unknown tomato Allergy (Verified 05/05/24 10:33) Unknown HPI Comments Details: Ms Salomon is a delightful 63-year-old female whom had the pleasure of seeing by [facility] for follow up WILLIAM. She is still grieving from the loss of her . She has multiple medical issues including hypertension, dyslipidemia, rheumatoid arthritis and high BMI. She has been on lisinopril hydrochlorothiazide . She is not known to have any proteinuria. Her baseline serum creatinine has been 0.7 which has gone up to 1.22 which now has improved to 0.95. She is currently on leflunomide and sulfasalazine for her rheumatoid arthritis. She denies chest pain, shortness of breath, proximal nocturnal dyspnea, orthopnea, pedal edema, hematuria, sensorineural deafness,, epistaxis, photosensitivity, new skin rashes. She denies taking excessive nonsteroidal anti-inflammatories. She maintains good hydration. She has no orthostatic symptoms. She is trying to be more active. She has no family history of any renal disease. [facility] Medical History (Updated 03/31/24 @ 16:08 by Harley Reyes MD) Concussion Eczema Rheumatoid arthritis Hyperlipidemia Hypertension Anemia Chronic kidney disease, stage 3a Surgical History H/O section Hx of tonsillectomy Review of Systems Const All systems reviewed & are unremarkable except as noted in HPI and below Physical Exam Vital Signs: BMI result Body Mass Index 42.8 Telehealth Telehealth Telehealth Platform: Telephone Location of provider rendering services: practice address Location of patient: address on file Patient Identification confirmed using: Name, : Yes Telehealth method: voice only Patient verbally consented to treatment: Yes Patient verbally consented to billing insurance company: Yes Patient informed of any privacy concerns related to visit: No Minutes spent on Phone/Video with Pt.: 10 Results Reviewed Nephrology Results: Hgb 10.9 g/dl (12.0-16.0) L 04/28/24 WBC 4.3 X10*3/uL (4.8-10.8) L 04/28/24 Plt Count 176 X10*3/uL (160-400) 04/28/24 Sodium 145 mmol/L (135-145) 04/28/24 Potassium 3.3 mmol/L (3.3-5.1) 04/28/24 Chloride 108 mmol/L (96-108) 04/28/24 Carbon Dioxide 30 mmol/L (22-29) H 04/28/24 BUN 16 mg/dL (9-16) 04/28/24 Creatinine 0.95 mg/dL (0.5-1.4) 04/28/24 Calcium 10.0 mg/dL (8.4-10.2) 04/28/24 Urine Creatinine 248.30 mg/dL 04/28/24 Protein/Creatinin Ratio 0.13 (<0.2) 04/28/24 Renal US 04/28/24 Assessment & Plan Assessment & Plan (1) WILLIAM (acute kidney injury): Code(s): N17.9 - Acute kidney failure, unspecified Category: Medical (2) Hypertension: Code(s): I10 - Essential (primary) hypertension Category: Medical Qualifiers: Hypertension type: primary hypertension Qualified Code(s): I10 - Essential (primary) hypertension Plan Ms Salomon had WILLIAM most likely due to compromise in renal perfusion with resultant tubular injury. Her urine output is good and there is no reason to suspect any obstructive uropathy. Given she has rheumatoid arthritis and is on medications for the same, I considered other differential diagnosis but nothing is supportive in that direction todate. We may have to back off on her HCTZ and or lisinopril if her serum creatinine rises. She should minimize or avoid nonsteroidal anti-inflammatories and maintain good hydration. She has no proteinuria. Her blood pressure needs to maintain at goal. I have explained all this in great detail and she had the opportunity to ask questions. Follow- up appointment given. Orders: Orders Blood Urea Nitrogen 6 Months I10 - Essential (primary) hypertension, N17.9 - Acute kidney failure, unspecified Creatinine 6 Months I10 - Essential (primary) hypertension, N17.9 - Acute kidney failure, unspecified Electrolytes 6 Months I10 - Essential (primary) hypertension, N17.9 - Acute kidney failure, unspecified Coding Level of Care Code Tele Est Pt Level 4 (37490) Diagnoses WILLIAM (acute kidney injury) N17.9 Primary hypertension I10 Hypertension type: primary hypertension
[2024-05-05 10:35] VITALS: BMI 42.8
== END 2024-05-05 16:52 | disposition home or self-care (01) ==
PROVIDERS: PCP Hospitalist; Visit Provider Internal Medicine Nephrology
DX: N17.9 Acute kidney failure, unspecified (principal); I10 Essential (primary) hypertension
CPT/HCPCS: 99214

== ENCOUNTER 2024-11-01 12:32 | Outpatient (REF) | payer OTHER, MEDICAID, SELFPAY ==
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
== END 2024-11-01 12:33 | disposition home or self-care (01) ==
LOC: HO.HKASLDS 12:32
PROVIDERS: Visit Provider Internal Medicine Nephrology
DX: Z13.89 Encounter for screening for other disorder (principal)

== ENCOUNTER 2024-11-03 10:52 | Outpatient (REF) | payer OTHER, MEDICAID, SELFPAY ==
[2024-11-03 17:55] LABS: Anion Gap 11 (12-20); Blood Urea Nitrogen 13 mg/dL (9-16); Carbon Dioxide 30 mmol/L (22-29); Chloride 106 mmol/L (96-108); Estimated Glomerular Filt Rate > 60; Potassium 3.7 mmol/L (3.3-5.1); Sodium 143 mmol/L (135-145)
== END 2024-11-03 10:53 | disposition home or self-care (01) ==
LOC: HO.HKASLDS 10:52
PROVIDERS: PCP Hospitalist; Visit Provider Internal Medicine Nephrology
DX: N17.9 Acute kidney failure, unspecified (principal); I10 Essential (primary) hypertension
CPT/HCPCS: 36415; 80051; 82565; 84520

== ENCOUNTER 2024-11-03 10:52 | Outpatient (AMB) | payer OTHER, MEDICAID, SELFPAY ==
--- NOTE | 2024-11-03 10:55 | HO.NEPHOV_ITS ---
Vital Signs 11/03/24 11:06 Height 5 ft 2 in Weight 239 lb 6 oz BMI 43.8 BP 136/72 Blood Pressure Location Lt brachial Position Sitting Pulse 69 Pulse Source Pulse Oximeter Pulse Oximetry (%) 95 Oxygen Delivery Method Room Air Intake Visit Reasons: 6mon follow up w/labs-Conf Grand Scribe Required: No Accompanied by: Self / Same As Patient Allergies doxycycline Allergy (Verified 11/03/24 11:06) Unknown erythromycin base Allergy (Verified 11/03/24 11:06) Unknown kiwi Allergy (Verified 11/03/24 11:06) Unknown latex Allergy (Verified 11/03/24 11:06) Unknown penicillamine Allergy (Verified 11/03/24 11:06) Unknown strawberry Allergy (Verified 11/03/24 11:06) Unknown tomato Allergy (Verified 11/03/24 11:06) Unknown HPI Comments Details: Ms Salomon is a delightful 63-year-old female whom had the pleasure of seeing in follow up for H/O WILLIAM on a backdrop of hypertension. She has multiple medical issues including hypertension, dyslipidemia, rheumatoid arthritis and high BMI. She had been on lisinopril hydrochlorothiazide . She is not known to have any proteinuria. Her baseline serum creatinine has been 0.7 which has gone up to 1.22 which now had improved to 0.95. She is on leflunomide and sulfasalazine for her rheumatoid arthritis. She denies chest pain, shortness of breath, proximal nocturnal dyspnea, orthopnea, pedal edema, hematuria, sensorineural deafness,, epistaxis, photosensitivity, new skin rashes. She denies taking excessive nonsteroidal anti-inflammatories. She maintains good hydration. She has no orthostatic symptoms. She is trying to be more active. She has no family history of any renal disease. [facility] Medical History (Updated 03/31/24 @ 16:08 by Harley Reyes MD) Concussion Eczema Rheumatoid arthritis Hyperlipidemia Hypertension Anemia Chronic kidney disease, stage 3a Surgical History H/O section Hx of tonsillectomy Review of Systems Const All systems reviewed & are unremarkable except as noted in HPI and below Physical Exam Const General: comfortable and no acute distress Orientation/consciousness: patient oriented x3 HEENT Head: Yes normocephalic Mouth: Normal oral and palatal mucosa present Eyes EOM: EOMs intact bilaterally Neck Neck: Yes supple Resp Auscultation: clear to auscultation bilaterally Cardio Jugular venous distension: no JVD Rate: regular rate GI Palpation (GI): Soft to palpation Auscultation: normal bowel sounds General: Yes no CVA tenderness Back/Spine/Pelvis Back: no CVA tenderness Skin General skin exam: no rashes or lesions noted Neuro General: patient oriented x3 and moves all extremities Extrem General: Yes no pedal edema Results Reviewed Nephrology Results: Hgb, (12.0-16.0) 10.9 g/dl L 04/28/24 WBC, (4.8-10.8) 4.3 X10*3/uL L 04/28/24 Plt Count, (160-400) 176 X10*3/uL 04/28/24 Sodium, (135-145) 145 mmol/L 04/28/24 Potassium, (3.3-5.1) 3.3 mmol/L 04/28/24 Chloride, (96-108) 108 mmol/L 04/28/24 Carbon Dioxide, (22-29) 30 mmol/L H 04/28/24 BUN, (9-16) 16 mg/dL 04/28/24 Creatinine, (0.5-1.4) 0.95 mg/dL 04/28/24 Calcium, (8.4-10.2) 10.0 mg/dL 04/28/24 Urine Creatinine 248.30 mg/dL 04/28/24 Protein/Creatinin Ratio, (<0.2) 0.13 04/28/24 Renal US 04/28/24 Assessment & Plan Assessment & Plan (1) Hypertension: Code(s): I10 - Essential (primary) hypertension Category: Medical Qualifiers: Hypertension type: primary hypertension Qualified Code(s): I10 - Essential (primary) hypertension (2) WILLIAM (acute kidney injury): Code(s): N17.9 - Acute kidney failure, unspecified Category: Medical Plan Ms Salomon had WILLIAM most likely due to compromise in renal perfusion with resultant tubular injury. Her urine output is good and there is no reason to suspect any obstructive uropathy. Given she has rheumatoid arthritis and is on medications for the same, I considered other differential diagnosis but nothing is supportive in that direction todate. We may have to back off on her HCTZ and or lisinopril if her serum creatinine rises. Repeat blood work ordered. She should minimize or avoid nonsteroidal anti-inflammatories and maintain good hydration. She has no proteinuria. Her blood pressure needs to maintain at goal. I have explained all this in great detail and she had the opportunity to ask questions. Follow-up appointment given. Orders: Orders Blood Urea Nitrogen 6 Months I10 - Essential (primary) hypertension Creatinine 6 Months I10 - Essential (primary) hypertension Electrolytes 6 Months I10 - Essential (primary) hypertension Coding Level of Care Code Est Pt Level 4 (37458) Diagnoses Primary hypertension I10 Hypertension type: primary hypertension WILLIAM (acute kidney injury) N17.9
[2024-11-03 11:06] VITALS: BP 136/72; PULSE 69; O2SAT 95; BMI 43.8
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
== END 2024-11-03 11:45 | disposition home or self-care (01) ==
LOC: HO.HKAS 10:53
PROVIDERS: PCP Hospitalist; Visit Provider Internal Medicine Nephrology
DX: I10 Essential (primary) hypertension (principal); N17.9 Acute kidney failure, unspecified
CPT/HCPCS: 99214

== ENCOUNTER 2024-12-09 12:11 | Outpatient (AMB) | payer OTHER, MEDICAID, SELFPAY ==
--- OUTSIDE RECORDS SUMMARY | 2024-12-09 12:14 | XMS_ITS | Patient Health Record ---
Author Organization [email or web address] Address [address] [place] [address] [address] [place] [address] Care Team Providers Care Fiction And Nonfiction Writer Prose Name Role Phone JESUS ROBLES Primary Care Provider Winnie Louise Unavailable [phone] Allergies Allergen (clinical drug ingredient) Drug/Non Drug [...] Reference Range Notes Comp. Metabolic Panel [id number] Reviewed date:02/25/2024 01:00:44 PM Interpretation: Performing Lab:[facility], [address] [place] [address], [place], Phone - [phone], Director - Cydney Notes/Report: Glucose 82 70-99 [...] IU/L ALT (SGPT) 23 0-32 IU/L Lipid Panel-[id number] Reviewed date:02/25/2024 01:00:58 PM Interpretation: Performing Lab:[facility] [place], [address] [place] [address], Phone - [phone], Director - Cydney Notes/Report: Cholesterol, Total 203 100-199 mg/dL Triglycerides 240 0-149 mg/dL HDL Cholesterol 53 >39 mg/dL VLDL Cholesterol Nir 41 5-40 mg/dL LDL Chol Calc ([facility]) 109 0-99 mg/dL Albumin/Creatinine Ratio,Uri ne-[id number] Reviewed date:02/25/2024 01:00:50 PM Interpretation: Performing Lab:[facility] [place], [address] [place] [address], Phone - [phone], Director - Cydney Notes/Report: Creatinine, Urine 233.9 Not Estab. mg/dL Albumin, Urine 68.8 Not Estab. ug/mL Alb/Creat Ratio 29 0-29 mg/g creat Normal: 0 - 29 Moderately increased: 30 - 300 Severely increased: >300 Basic Metabolic Panel ([id number] Reviewed date:04/06/2024 12:28:34 PM Interpretation: Performing Lab:[facility] [place], [address] [place] [address], Phone - [phone], Director - Cydney Notes/Report: Clinical Information:SRC: Glucose 86 70-99 mg/dL BUN 10 8-27 mg/dL Creatinine 1.10 0.57-1.00 mg/dL eGFR 57 >59 mL/min/1.73 BUN/Creatinine Ratio 9 12-28 Sodium 143 134-144 mmol/L Potassium 3.4 3.5-5.2 mmol/L Chloride 102 96-106 mmol/L Carbon Dioxide, Total 27 20-29 mmol/L Lipid Panel-[id number] Reviewed date:2024 09:32:03 AM Interpretation: Performing Lab:[facility], [address] [place] [address], Phone - [phone], Director - Cydney Notes/Report: Clinical Information:SRC: Cholesterol, Total 184 100-199 mg/dL Triglycerides 219 0-149 mg/dL HDL Cholesterol 55 >39 mg/dL VLDL Cholesterol Nir 37 5-40 mg/dL LDL Chol Calc ([facility]) 92 0-99 mg/dL Reason For Referral Reason Father positive for Transthyretin Amyloidosis- 50 percent chance of carrying the gene. 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) Referral Organization [facility] Referring Provider First Name Winnie Referring Provider Last Name Dani Referred Provider Specialty Supervisor Soldering General Notes faxed over to [facility] [place], they will call ptClay Brittney 01/29/2024 02:08:55 PM > Referral Priority Urgent Reason Evaluation and manag ement Diagnosis 1 Chronic kidney disea se, stage 3a (N18.31) Referral Organization [facility] Referring Provider First Name JESUS Referring Provider Last Name DAVID Referring Provider Speciality Internal M edicine Referred Provider Specialty Neurology General Notes Referral sent to [facility] ([address] [place] [address], [address], [place] [address], ) - Office will call patient for scheduling.Maxine Latraya 03/16/2024 02:58:25 PM > Referral Priority Routine Reason Evaluation and manag ement Diagnosis 1 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) Referral Organization [facility] Referring Provider First Name JESUS Referring Provider Last Name [facility] Referring Provider Speciality Internal edicine Referred Provider Specialty Neurosurgery General Notes Referral sent to [facility].Maxine Latraya 10/07/2024 09:02:41 AM > Referral Priority Routine Medications Medication SIG (Take, Route, Frequency, Duration) Notes Start Date End Date Status Lisinopril-hydroCHLOROth iazide 10-12.5 MG TAKE 1 TABLET DAILY; Duration: 90 Active Atorvastatin Calcium 20 MG TAKE 1 TABLET ONCE DAILY; Duration: 90 Active CoQ10 100 MG 1 capsule orally once a day Not-Taking sulfaSALAzine 500 MG 1 tablet Orally four times a day; Duration: [address] Parker Active Misc. Devices - as directed; Duration: 365 days Extra long Compression stocking buttocks high for pt 01/28/2024 Active Misc. Devices - as directed 01/28/2024 A ctive Blood Pressure Monitor - use to check blood pressure daily; Duration: 30 days 12/02/2023 Active Vitamin C 1000 MG 1 tablet orally once a day; Duration: 90 days Active Multivitamin Adult one daily N ot-Taking Gabapentin 800 MG 1 tablet Orally 3 times a day; Duration: [address] Parker Active Campus 3 1200 MG 1 capsule Orally Once a day Not-Taking predniSONE 5 MG 1 tablet Orally Once a day Dr. Parker Active Vitamin D 2000 UNIT 1 tablet Orally Once a day Not-Taking traMADol HCl 50 MG 1 tablet as needed Orally four times a day Dr. Parker Active Vitamin E 400 UNIT 1 capsule orally once a day Not-Taking Ferrous Sulfate 325 (65 Fe) MG 2 tablet Orally Once a day; Duration: 90 days Active Hydroxychloroquine Sulfate 200 MG 1 tablet with food or milk Orally twice a day; Duration: [address] Parker Active Klor-Con 20 MEQ MIX AND DRINK 1 PACKET BY MOUTH DAILY WITH FOOD; Duration: 90 days Active Atorvastatin Calcium 10 MG TAKE 1 TABLET BY MOUTH EVERY DAY; Duration: 90 Active Potassium Chloride ER 20 MEQ 1 tablet with food Orally Once a day; Duration: 90 days Active Metoprolol Succinate ER 100 MG TAKE 1 TABLET DAILY; Duration: 90 Active Aspirin Adult Low Dose 81 MG 1 tablet Orally Once a day; Duration: 90 days Not-Taking Leflunomide 20 MG 1 tablet Orally Once a day; Duration: [address] Parker Active Folic Acid 1 MG 1 tablet Orally Once a day; Duration: [address] Parker Active diazePAM 5 MG 1 tablet as needed Orally Once a day; Duration: 90 days take half an hour before flight 11/11/2023 Active Immunizations Vaccine Route Administration Date Status [...] Status W/U Status Risk Notes Problem Anemia (773459227) Anemia, unspecified (D64.9) Active confirmed Problem Morbid obesity (disorder) (943355310) Morbid (severe) obesity due to excess calories (E66.01) Active confirmed Problem Mixed hyperlipidemia (870713403) Mixed hyperlipidemia (E78.2) Active confirmed Problem Lymphedema (007241368) Lymphedema, not elsewhere classified (I89.0) Active confirmed Problem Myopathy due to rheumatoid arthritis (131716798) 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 Problem Paresthesia (finding) (04595716) Paresthesia of skin (R20.2) Active confirmed Problem Dizziness and giddiness (784005266) Dizziness and giddiness (R42) Active confirmed Problem Abnormal results of liver function studies (861184052) Abnormal results of liver function studies (R94.5) Active confirmed Problem Essential hypertension (68321470) Essential (primary) hypertension (I10) Active confirmed Problem Wild type ATTR amyloidosis (disorder) (371649768) 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) Active confirmed Problem Chronic kidney disease stage 3A (disorder) (459842830) Chronic kidney disease, stage 3a (N18.31) Active confirmed Vital Signs Heart Rate 90 /min 08/30/2024 Temperature 96.7 degrees Fahrenheit 08/30/2024 Oximetry 96 % 08/30/2024 Blood pressure diastolic 74 mm Hg 08/30/2024 Height 64 in 08/30/2024 Blood pressure systolic 110 mm Hg 08/30/2024 Weight 240.0 lbs 08/30/2024 BMI 41.19 kg/m2 08/30/2024 Encounters Encounter Location Date Provider Diagnosis [facility] [address] [address] [place] [address] 12/24/2023 JESUS ROBLES [facility] [address] [place] [address] 02/09/2024 Winnie oLuise Essential (primary) hypertension I10 [facility] [address] [place] [address] 02/23/2024 Winnie Louise Hypokalemia E87.6 [facility] [address] [place] [address] 02/25/2024 LEE GUL Essential (primary) hypertension I10 [facility] [address] [place] [address] 02/26/2024 LEE GUL Essential (primary) hypertension I10 [facility] [address] [facility] [place] [address] 02/26/2024 [facility] [address] [facility] [place] [address] 03/16/2024 [facility] [address] [facility] [place] [address] 04/06/2024 [facility] [address] [place] [address] 04/21/2024 [facility] [address] [place] [address] 05/30/2024 [facility] [address] [place] [address] 06/03/2024 [facility] [address] [facility] [place] [address] 08/16/2024 [facility] [address] [place] [address] 08/30/2024 [facility] [address] [facility] [place] [address] 09/01/2024 [facility] [address] [place] [address] 10/05/2024 [facility] [address] [facility] [place] [address] 10/06/2024 [facility] [address] [place] [address] 10/13/2024 LEE GUL [address] [place] [address] 01/28/2024 Winnie Louise Mixed hyperlipidemia E78.2 ; Essential (primary) hypertension I10 ; Morbid (severe) obesity due to excess calories E66.01 and Dietary counseling and surveillance Z71.[address] [place] [address] 02/25/2024 JESUS ROBLES Essential (primary) hypertension I10 ; Mixed hyperlipidemia E78.2 ; Morbid (severe) obesity due to excess calories E66.01 ; Chronic kidney disease, stage 3a N18.31 and Dietary counseling and surveillance Z71.[address] [place] [address] 08/30/2024 Winnie Louise Pre-operative cleara nce Z01.[address] [place] [address] 04/22/2024 JESUS ROBLES Encounter for genera l [...] Treatment Notes Treatment Clinical Notes Section Notes 01/28/2024 Mixed hyperlipidemia (ICD-10 - E78.2) Mrs. [...] this note under HIPAA compliance and under [place] law mandated for scribe services. Patient aware [...] this note under HIPAA compliance and under [place] law mandated for scribe services. Patient aware of service. Verbal consent and written consent taken from the patient. Patient understands and verbalizes understanding of the scribes services and all questions answered regarding scribes services. Patient agrees to use of scribes services. 02/25/2024 Essential (primary) hypertension (ICD-10 - I10) 02/26/2024 Essential (primary) hypertension (ICD-10 - I10) 08/30/2024 Pre-operative clearance (ICD-10 - Z01.818) Mrs. Salomon is a 64-year-old lady with anemia, hypertension, hyperlipidemia, rheumatoid arthritis, lymphedema and morbid obesity here for pre-op for Intraarticular injection to be done at [facility] with Cristi PEREZ. Plan as follows: Cardiac assessment. Patient can easily do 4 METS. Blood pressure and exam is within normal limits. Pulmonary assessment. Lung exam is normal. No further Intervention NPO on the day of surgery. Take your medications after the surgery. Hold NSAIDs and aspirin 5 days before the procedure. She is no longer taking ASA, Based on ASCVD risk environmental services project manager plus, patient is a low risk with score of 3.7 for developing CVD. Hold off on Campus supplement 5 days prior to procedure. Low risk procedure in a low risk patient. No contraindications for the procedure at this point in time I have rendered the services for this patient under direct supervision of Dr. Robles, who did not see the patient but was available upon request 04/22/2024 Encounter for general adult medical examination [...] lives by herself. She will benefit from PHARMACY SCHEDULER for a few hours a week to [...] lives by herself. She will benefit from PHARMACY SCHEDULER for a few hours a week to [...] this note under HIPAA compliance and under [place] law mandated for scribe services. Patient aware [...] Robles, who did see the patient 01/28/2024 Dietary counseling and surveillance (ICD-10 - [...] this note under HIPAA compliance and under [place] law mandated for scribe services. Patient aware [...] lives by herself. She will benefit from PHARMACY SCHEDULER for a few hours a week to [...] lives by herself. She will benefit from PHARMACY SCHEDULER for a few hours a week to [...] this note under HIPAA compliance and under [place] law mandated for scribe services. Patient aware [...] lives by herself. She will benefit from PHARMACY SCHEDULER for a few hours a week to [...] lives by herself. She will benefit from PHARMACY SCHEDULER for a few hours a week to help her with laundry, cleaning, shopping, showering etc. Blood work reviewed and questions answered Plan Of Treatment Pending Test Test Name Order Date Echocardiogram 01/28/2024 MAMMOGRAM, SCREENING 04/22/2024 BASIC METABOLIC PANEL 06/26/2022 CBC with Diff, Platelet, [id number] 10/16 Albumin/Creatinine Ratio,Urine-229916 Lipid Panel-[id number] 11/02/2023 Basic Metabolic Panel [id number] Comp. Metabolic Panel ([id number] 2023 Future Test Test Name Order Date Basic Metabolic Panel [id number] 024 Next Appt Details Provider Name:JESUS ROBLES , 12/13/2024 01:30:00 PM, [address] [place] [address], [phone], Provider Name:JESUS ROBLES , 05/02/2025 01:00:00 PM, [address] [place] [address], [phone], Insurance Providers Payer Name Payer Address Payer Phone Subscriber Number Group Number Insured Name Patient Relationship to Insured Coverage Start Date Coverage End Date [employer] INS[employer]ANCE [address] [place] [address] [id number] AimeTorres murraya Self - patient is the insured 4 [place] [address] [place] [address] [phone] [id number] Rita Salomon Self - patient is the insured 4 Medical (General) History Medical History History ICD Code anemia- Dr Hankins hypertension, benign hyperlipidemia rheumatoid arthritis- Dr Alicia PMR Eczema and she DR Hardy Concussion and see Dr Alonso Surgical History Surgery Date(Month/Year) tonsillectomy section
--- OUTSIDE RECORDS SUMMARY | 2024-12-09 12:14 | XMS_ITS ---
Author Name [facility] Organization Unknown Encounters Encounter Type Encounter Reason Primary Diagnosis Location Date Ambulatory [facility] 10/03/2024 Ambulatory [facility] 08/30/2024 Care Team Organization Name Specialty Phone Email Start Date End [facility] 08/30/2024 [facility] 08/04/2024 025 [facility] 02/25/2024 [facility] 12/03/2023 025 [facility] 03/25/2022 025
--- OUTSIDE RECORDS SUMMARY | 2024-12-09 12:14 | XMS_ITS | Clinical Summary ---
Author Organization [facility] Address [address] [place] [phone] Phone Care Team Providers Care Inspector Welded Parts Name Role Phone Stephan Hodge MD Primary Care Provider Allergies Active Allergy Reactions Criticality Noted Date Comments Latex, Natural Rubber Hives 07/01/2024 Penicillins Hives 07/01/2024 Social History Tobacco Use Types Packs/Day Years Used Date Smoking Tobacco: Never Assessed Comments Unknown Sex and Gender Information Value Date Recorded Sex Assigned at Not on file Legal Sex Female 2:54 PM EST Gender Identity Not on file Sexual Orientation Not on file Last Filed Vital Signs Vital Sign Reading Time Taken Comments Blood Pressure 117/71 07/01/2024 9:01 PM EST Pulse 101 07/01/2024 9:01 PM EST Temperature 37.7 C (99.9 F) 07/01/2024 9:01 PM EST Respiratory Rate 18 07/01/2024 4:36 PM EST Oxygen Saturation 95% 07/01/2024 9:01 PM EST Inhaled Oxygen Concentration - - Weight 90.7 kg (200 lb) 07/01/2024 8:48 AM EST Height 157.5 cm (5' 2 ) 07/01/2024 8:48 AM EST Body Mass Index 36.58 07/01/2024 8:48 AM EST Plan of Treatment Health Maintenance Due Date Last Done Comments Cervical Cancer Screening: P ap Smear 1983 Hepatitis B Vaccines (3 of 3 - 19+ 3-dose series) 08/11/2006 03/17/2006, 02/11/2006 DTaP,Tdap,and Td Vaccines (2 - Td or Tdap) 09/05/2010 09/05/2000 Pneumococcal Vaccine: 50+ Years (1 of 1 - PCV) 2012 Zoster Vaccines (1 of 2) 2012 Cholesterol Screening (Lipid Panel) 04/16/2022 Colorectal Cancer Screening: Colonoscopy 04/16/2022 HIV Screening 04/16/2022 Hepatitis C Screening 04/16/2022 Medicare Annual Wellness Visit 04/16/2022 Social Influencers of Health Screening 04/16/2022 Breast Cancer Screening 06/26/2022 06/26/2020 COVID-19 Vaccine (3 - 2023-2 5 season) 2024 12/04/2020, 11/13/2020 Depression Screening 05/18/2024 Influenza Vaccine (#1) 2025 RSV Immunization Adult Patients (1 - 1-dose 75+ series) 2037 HIB Vaccines Aged Out No longer eligi ble based on patient's age to complete this topic HPV Vaccines Aged Out No longer eligi ble based on patient's age to complete this topic Hepatitis A Vaccines Aged Out No long er eligible based on patient's age to complete this topic IPV Vaccines Aged Out No longer eligi ble based on patient's age to complete this topic MMR Vaccines Aged Out No longer eligi ble based on patient's age to complete this topic Meningococcal ACWY Vaccine Aged Out N o longer eligible based on patient's age to complete this topic Meningococcal B Vaccine Aged Out No l onger eligible based on patient's age to complete this topic RSV Immunization Patients Under 20 months Aged Out No longer eligible b ased on patient's age to complete this topic Varicella Vaccines Aged Out No longer eligible based on patient's age to complete this topic Procedures Procedure Name Priority Date/Time Associated Diagnosis Comments [facility] SCREENING DIGITAL Routine 06/26/2020 7:49 AM EST Encounter for screening mammogram for malignant neoplasm of breast from Last 3 Months or Most Recently Relevant to Health Maintenance Results * MARIANO SCREENING DIGITAL (06/26/2020 7:49 AM EST) Anatomical Region Laterality Modality Mammography 06/21/2020 10:3 5 AM EST Narrative 06/26/2020 7:49 AM [facility] Diagnostic Imaging Department [address] [place] [address] Patient: JOSE G SALOMON Rosalee GoodeB./Age/Sex: 1960 - 60 - F Unit#: [id number] Location/Status: SPDIMAM/REG CLI Mnemonic/Ordering Site: [facility] Ordering Physician: JESUS ROBLES MD Mariano Screening Digital - 06/21/201108 HISTORY: The patient is a 60-year-old female presenting for routine screening mammography. FINDINGS: CC and MLO views of both breasts were obtained using full field digital mammography in the [employer] Senographe 2000-D unit. Computer aided detection with the iCAD Second Look 7.2-H was employed. In addition, breast tomosynthesis in MLO projection was performed. The breasts are again seen to be composed of a combination of fatty and fibroglandular elements (scattered areas of fibroglandular density, category B density), as also seen on prior outside studies performed 06/18/2016, 05/17/2015, and 09/19/2010. There is no cluster of microcalcifications, mass, or area of architectural distortion. There is no skin thickening or nipple retraction. IMPRESSION: No mammographic evidence of malignancy. A negative mammogram in the presence of a clinically suspicious palpable abnormality does not preclude the possibility of malignancy or alter the indications for biopsy. BIRADS Code Class 1: Negative PQRI CPT II 3341F Code 49576, 88531 PQRI 225 CPT II 7025F Dictating Physician: TIANNA RUBALCAVA MD Electronically Signed by: TIANNA RUBALCAVA MD Dic Date/Time: 06/26/20 0747 Sign date/Time: 06/26/20 0749 Procedure Note Tianna Rubalcava MD - 05/06/2022 [facility] Diagnostic Imaging Department [address] [place] [address] Patient: JOSE G SALOMON Rosalee GoodeB./Age/Sex: 1960 - 60 - F Unit#: [id number] [facility]ing [facility] Ordering Physician: JESUS ROBLES MD Mariano Screening Digital - 06/21/20 - 1109 HISTORY: The patient is a 60-year-old female presenting for routinescreening mammography. FINDINGS: CC and MLO views of both breasts were obtained using fullfield digital mammography in the [employer]ographe 2000-D unit. Computer aideddetection with the iCAD Second Look 7.2-H was employed. In addition, breasttomosynthesis in MLO projection was performed. The breasts are again seen to be composed of a combination of fatty and fibroglandular elements (scattered areas of fibroglandular density,category B density), as also seen on prior outside studies performed 06/18/2016,05/17/2015, and 09/19/2010. There is no cluster of microcalcifications, mass, or areaof architectural distortion. There is no skin thickening or nippleretraction. IMPRESSION: No mammographic evidence of malignancy. A negative mammogram in the presence of a clinically suspicious palpable abnormality does not preclude the possibility of malignancy or alter the indications for biopsy. BIRADS Code Class 1: Negative PQRI CPT II 3341F Code 49487, 92496 PQRI 225 CPT II 7025F Dictating Physician: TIANNA RUBALCAVA MD Electronically Signed by: TIANNA RUBALCAVA MD Dic Date/Time: 06/26/20 0747 Sign date/Time: 06/26/20 0749 Jesus Robles MD IMG BI PROCEDURES Final Result from Last 3 Months or Most Recently Relevant to Health Maintenance Insurance MEDICA[place] AETNA MEDICARE ADVANTAGE Care Teams Inspector Welded Parts Relationship Specialty Start Date End Date Stephan Hodge MD [address] [facility] [address] [place], [place] PCP - General 12/18/16
--- OUTSIDE RECORDS SUMMARY | 2024-12-09 12:14 | XMS_ITS | Clinical Summary ---
Author Organization [facility] Address [address] [place] [address] Phone Care Team Providers Care Senior Ui Developer Name Role Phone JessieBlasrodrigue Armenta MD Primary Care Provider [phone] Allergies Active Allergy Reactions Criticality Noted Date Comments Doxycycline Calcium 08/29/2024 Kiwi 08/29/2024 Latex 08/29/2024 Penicillins 08/29/2024 Skippers 08/29/2024 Medications traMADoL (ULTRAM) 50 mg tablet Take 2 tablets (100 mg total) by mouth every 6 (six) hours as needed for pain (specific location in comments). 32 tablet 08/29/2024 Active Social History Tobacco Use Types Packs/Day Years Used Date Smoking Tobacco: Never Assessed Education Answer Date Recorded Are you interested in more education? Not on abhijeet e 08/30/2024 Are you concerned about learning? Not on file 08/30/2024 No 08/30/2024 No 08/30/2024 Digital Access Answer Date Recorded No 08/30/2024 No 08/30/2024 Reliable internet access at home? Not on file 08/30/2024 Device with a working camera? Not on file Intimate Partner Violence Answer Date R ecorded Are you denied basic needs s uch as food, clothing, or medical care? No 08/29/2024 In the past 12 months have y ou been in a relationship with a person who hurts, threatens, or tries to control you? No 08/29/2024 Are you denied basic needs s uch as food, clothing, or medical care? No 08/29/2024 In the past 12 months have y ou been in a relationship with a person who hurts, threatens, or tries to control you? No 08/29/2024 Comments Unknown Sex and Gender Information Value Date Recorded Sex Assigned at Female 12/21/2020 1:21 PM EDT Legal Sex Female 1:17 PM EDT Gender Identity Female 12/21/2020 1:21 PM EDT Sexual Orientation Straight 12/21/2020 1: 21 PM EDT Last Filed Vital Signs Vital Sign Reading Time Taken Comments Blood Pressure 142/84 08/29/2024 10:13 PM EDT Pulse 66 08/29/2024 10:13 PM EDT Temperature 36.2 C (97.2 F) 08/29/2024 10:13 PM EDT Respiratory Rate 16 08/29/2024 10:13 PM EDT Oxygen Saturation 98% 08/29/2024 10:13 PM EDT Inhaled Oxygen Concentration - - Weight 108.9 kg (240 lb) 08/29/2024 5:19 PM EDT Height 172.7 cm (5' 8 ) 08/29/2024 5:19 PM EDT Body Mass Index 36.49 08/29/2024 5:19 PM EDT Plan of Treatment Not on file Medical Devices Not on file Insurance MEDICARE PART A & B [facility] MEDICARE REPLACEMENT MEDICARE PART A & B [facility] MEDICARE REPLACEMENT MEDICARE PART A & B MEDICARE PART A & B MEDICARE PART A & [facility]IC[facility] REPLACEMENT MEDICARE PART A & B MEDICARE PART A & B [facility] MEDICARE REPLACEMENT MEDICARE PART A & B [facility] MEDICARE REPLACEMENT MEDICARE PART A & B [place] [employer] P[employer] MEDICARE REPLACEMENT Care Teams Senior Ui Developer Relationship Specialty Start Date End Date Renu Roman MD [address] [place] [address] PCP - General Internal Medicine 12/21/20 Additional Source Comments The information contained in this document represents components of the legal health record. It is not the complete legal health record.[facility]
--- OUTSIDE RECORDS SUMMARY | 2024-12-09 12:14 | XMS_ITS | Patient Health Record ---
Author Organization [facility] [address] [place] [address] [address] Address [address] [place] [phone] Support Name Relationship Address Phone Rita Salomon Guarantor Unknown Reason For Referral No Information Plan Of Treatment No Information Insurance Providers Payer Name Payer Address Payer Phone Subscriber Number Group Number Insured Name Patient Relationship to Insured Coverage Start Date Coverage End Date [employer] [address] [phone] [id number] Rita Salomon Self - patient is the insured
[2024-12-09 12:43] VITALS: BMI 43.2
--- NOTE | 2024-12-09 12:43 | HO.SPINEOV ---
Vital Signs 12/09/24 12:43 Height 5 ft 2.5 in Weight 240 lb BMI 43.2 Intake Visit Reasons: radicular lumbar pain Intake Note: Ms. Salomon is here today c/c Pain the low back that radiates down to the foot. Billing Control Clerk Required: No Allergies doxycycline Allergy (Verified 12/09/24 12:45) Unknown erythromycin base Allergy (Verified 12/09/24 12:45) Unknown kiwi Allergy (Verified 12/09/24 12:45) Unknown latex Allergy (Verified 12/09/24 12:45) Unknown penicillamine Allergy (Verified 12/09/24 12:45) Unknown strawberry Allergy (Verified 12/09/24 12:45) Unknown tomato Allergy (Verified 12/09/24 12:45) Unknown Physical Exam Vital Signs: BMI result Body Mass Index 43.2 Assessment & Plan Assessment & Plan (1) Lumbar stenosis with neurogenic claudication: Code(s): M48.062 - Spinal stenosis, lumbar region with neurogenic claudication Category: Medical Plan Dear colleague Thank you for referring Rita Salomon for a 2nd opinion with a chief complaint of right leg pain. HPI: This 64-year-old female he suffering from pain radiating from the right side of the back down the outside of her leg to the top of her foot since the beginning of June. The pain is constant and interfering with the daily activities. Pain is 8/10. Laying down is the best position. She can not stand or walk for prolonged period of time. She tried physical therapy and cortisone injections which provided no relief. The left side is unaffected. She denies weakness. She does have bilateral feet numbness. She suffering from lymphedema of the legs. She saw Dr. Earl at [facility] recommended decompression of what it sounds like the L4-5 region. PMH: Rheumatoid arthritis, hypertension, hypercholesterolemia, low potassium, lymphedema Medications: Gabapentin, sulfasalazine, metoprolol, potassium, lisinopril, folic acid, leflunomide, atorvastatin, prednisone 5 mg, tramadol, hydroxy Nori, iron, fish oil, multivitamins. Allergies: Penicillin, erythromycin, latex and doxycycline Social history: Lives alone. Nonsmoker Physical Exam: Pleasant female. She ambulates with a cane. There is bilateral feet numbness and edema of the lower legs with the right side is more affected than the left side. Straight leg raise negative. Motor exam is 5/5 throughout. 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 Specifically, the lateral recess is narrow at this levels compressing the L4 and L5 nerve roots. Impression/Plan: This patient is suffering from lateral recess stenosis causing impingement of the L4 and L5 nerve roots. I offered her decompression of the L4 and L5 nerve roots through an L3-4 L4-5 laminotomy. The procedure complications and expected postoperative course were discussed with the patient and her daughter. She wants to proceed. She is tentatively scheduled for February 01. She will visit her green hide inspector to discuss if she can stop sulfasalazine and hydroxychloroquine 2 weeks prior to surgery as those medications interfere with the immune system. She can continue the prednisone. Thank you for allowing me to participate in your patients care. total time spent was 60 minutes in counseling ,coordination of plan, personal review of imaging, surgical decision making and subsequent plan Oscar Bender MD, PhD Spine Fellowship Trained Neurosurgeon Director, [facility] Coding Level of Care Code New Pt Level 5 (04256) Diagnoses Lumbar stenosis with neurogenic claudication M48.062
== END 2024-12-09 13:41 | disposition home or self-care (01) ==
LOC: HO.HNS 12:12
PROVIDERS: PCP Hospitalist; Referring Provider Internal Medicine Rheumatology; Visit Provider Neurological Surgery
DX: M48.062 Spinal stenosis, lumbar region with neurogenic claudication (principal)
CPT/HCPCS: 99205

== ENCOUNTER 2025-04-05 05:49 | Day surgery (SDC) | payer MEDICARE, MEDICAID, SELFPAY ==
--- OUTSIDE RECORDS SUMMARY | 2025-03-09 17:33 | XMS_ITS | Clinical Summary ---
Author Organization [facility] Address [address] [place] [address] Phone Care Team Providers Care Services Account Manager Name Role Phone JessieBlasordrigue Armenta MD Primary Care Provider [phone]- [phone] Allergies Active Allergy Reactions Criticality Noted Date Comments Doxycycline Calcium 08/29/2024 Kiwi 08/29/2024 Latex 08/29/2024 Penicillins 08/29/2024 [place] 08/29/2024 Medications traMADoL (ULTRAM) 50 mg tablet [...] file Insurance MEDICARE PART A & B Member Subscriber Plan / Payer (Ef fective 2017-Present) Name:Rtia Salomon Member ID:[id number] Relation to Subscriber:Self Name:Rita Salomon Subscriber ID:[id number] Payer ID:[id number] Group ID:Not on file Type:Medicare Address: [facility] [employer] [facility] [address] [place] [address] [facility] [place] [facility] MEDICARE REPLACEMENT MEDICARE PART A & B [facility] [place] [facility] MEDICARE REPLACEMENT MEDICARE PART A & B MEDICARE PART A & B [facility]ICARE PART A & B [facility] [place] [facility] MEDICARE REPLACEMENT MEDICARE PART A & B MEDICARE PART A & B [facility] [place] [facility] MEDICARE REPLACEMENT MEDICARE PART A & B [facility] [place] [facility] MEDICARE REPLACEMENT MEDICARE PART A & B Member Subscriber Plan / Payer (Ef fective 2017-Present) Name:Rita Salomon Member ID:[id number] Relation to Subscriber:Self Name:Rita Salomon Subscriber ID:[id number] Payer ID:[id number] Group ID:Not on file Type:Medicare Address: [facility] [employer] [facility] [employer] [facility] [address] [place] [address] [place] [employer] P[employer] MEDICARE REPLACEMENT Care Teams Services Account Manager Relationship Specialty Start Date End Date Renu Roman MD [address] [place] [address] PCP - General Internal Medicine 12/21/20 Additional Source Comments The information contained in this document represents components of the legal health record. It is not the complete legal health record.[facility]
--- OUTSIDE RECORDS SUMMARY | 2025-03-09 17:34 | XMS_ITS | Patient Health Record ---
Author Organization [facility] [address] [place] [address] Location Address [address] [place] [phone] Support Name Relationship Address Phone Rita Salomon Guarantor Unknown Reason For Referral No Information Plan Of Treatment No Information Insurance Providers Payer Name Payer Address Payer Phone Subscriber Number Group Number Insured Name Patient Relationship to Insured Coverage Start Date Coverage End Date Industrial [employer] [address] [phone] [id number] Rita Salomon Self - patient is the insured
--- OUTSIDE RECORDS SUMMARY | 2025-03-09 17:34 | XMS_ITS | Clinical Summary ---
Author Organization [facility] Address [address] [place] [phone] Phone Care Team Providers Care Follow Up Rep Name Role Phone Stephan Hodge MD Primary [...] Health Maintenance Due Date Last Done Comments Colorectal Cancer Screening: Colonoscopy 1960 Cervical Cancer Screening: P ap Smear 1983 Hepatitis B Vaccines (3 of 3 - 19+ 3-dose series) 08/11/2006 03/17/2006, 02/11/2006 DTaP,Tdap,and Td Vaccines (2 - Td or Tdap) 09/05/2010 09/05/2000 Pneumococcal Vaccine: 50+ Years (1 of 1 - PCV) 2012 Zoster Vaccines (1 of 2) 2012 Cholesterol Screening (Lipid Panel) 04/16/2022 HIV Screening 04/16/2022 Hepatitis C Screening 04/16/2022 Medicare Annual Wellness Visit 04/16/2022 Social Influencers of Health Screening 04/16/2022 Breast Cancer Screening 06/26/2022 06/26/2020 Depression Screening 05/18/2024 COVID-19 Vaccine (3 - 2024-2 6 season) 2025 12/04/2020, 11/13/2020 Influenza Vaccine (#1) 2025 RSV Immunization Adult [...] Procedure Name Priority Date/Time Associated Diagnosis Comments [facility] SCREENING DIGITAL Routine 06/26/2020 7:49 AM EST Encounter for screening mammogram for malignant neoplasm of breast from Last 3 Months or Most Recently Relevant to Health Maintenance Results * MARIANO SCREENING DIGITAL (06/26/2020 7:49 AM EST) Anatomical Region Laterality Modality Mammography 06/21/2020 10:3 5 AM EST Narrative 06/26/2020 7:49 AM [facility] Diagnostic Imaging Department [address] [place] [address] Patient: JOSE G SALOMON Rosalee GoodeB./Age/Sex: 1960 - 60 - F Unit#: [id number] Location/Status: SPDIMAM/REG CLI Mnemonic/Ordering Site: [facility] Ordering Physician: JESUS ROBLES MD Mariano Screening Digital - 06/21/201108 HISTORY: The patient is a 60-year-old female presenting for routine screening mammography. FINDINGS: CC and MLO views of both breasts were obtained using full field digital mammography in the i[employer] Senographe 2000-D unit. Computer aided detection with [...] 1: Negative PQRI CPT II 3341F Code 84520, 66199 PQRI 225 CPT II 7025F Dictating Physician: TIANNA RUBALCAVA MD Electronically Signed by: TIANNA RUBALCAVA MD Dic Date/Time: 06/26/20 0747 Sign date/Time: 06/26/20 0749 Procedure Note Tianna Rubalcava MD - 05/06/2022 [facility] Diagnostic Imaging Department [address] [place] [address] Patient: JOSE G SALOMON Rosalee GoodeB./Age/Sex: 1960 - 60 - F Unit#: [id number] [facility] Ordering Physician: JESUS ROBLES MD Mariano Screening Digital - 06/21/20 - 1109 HISTORY: The patient is a 60-year-old female presenting for routinescreening mammography. FINDINGS: CC and MLO views of both breasts were obtained using fullfield digital mammography in the [employer] 2000-D unit. Computer aideddetection with the iCAD [...] 1: Negative PQRI CPT II 3341F Code 40990, 18608 PQRI 225 CPT II 7025F Dictating Physician: TIANNA RUBALCAVA MD Electronically Signed by: TIANNA RUBALCAVA MD Dic Date/Time: 06/26/20 0747 Sign date/Time: 06/26/20 0749 Jesus Robles MD IMG BI PROCEDURES Final Result from Last 3 Months or Most Recently Relevant to Health Maintenance Insurance [place] - [place] Member Subscriber Plan / Payer ( fective 2024-Present) Name:Jose G Salomon Relation to Subscriber:Self Name:Jose G Salomon Payer ID:[id number] Group ID:Not on file Type:Not on file Address: [facility] Medical Referral SourceER SERVICE [place] ATTN:[employer] [address] [place] [address] [employer] MED[employer]ARE ADVANTAGE Care Teams Follow Up Rep Relationship Specialty Start Date End Date Stephan Hodge MD [address] [facility] [address] [place], [place] PCP - General 12/18/16
--- OUTSIDE RECORDS SUMMARY | 2025-03-09 17:34 | XMS_ITS | Patient Health Record ---
Author Organization [employer] Address [address] [place] [address] [address] [place] [address] Care Team Providers Care Strategic Partnership Manager Name Role Phone JESUS ROBLES Primary Care Provider Winnie Louise Unavailable [phone] Allergies Allergen (clinical drug ingredient) Drug/Non Drug Allergy documented on EMR Reaction Allergy Type Onset Date Status kiwis (uncoded) Unknown Allergy Acti ve Latex LATEX (uncoded) Unknown Allergy Acti ve Latex latex (uncoded) Unknown Allergy Acti ve strawberry allergenic extract strawberries (uncoded) Unknown Allergy Activ e tomato allergenic extract tomatos (uncoded) Unknown Allergy Active doxycycline Doxycycline Hyclate Unknown Drug Allergy Active erythromycin Erythromycin Unknown Drug Allergy A ctive penicillamine Penicillamine Unknown Drug Allergy Active Reason For Referral Reason Evaluation and manag ement Diagnosis 1 Chronic kidney disea se, stage 3a (N18.31) Referral Organization [facility] Referring Provider First Name JESUS Referring Provider Last Name GU Referring Provider Speciality Internal M edicine Referred Provider Specialty Neurology General Notes Referral sent to [facility] ([address] [place] [address], [address], [place] [address], ) - Office will call patient for scheduling.Ethan Latraya 03/16/2024 02:58:25 PM > Referral Priority Routine Reason Evaluation and manag ement Diagnosis 1 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 Devices - as directed 01/28/2024 A ctive Misc. Devices - as directed; Duration: 365 days Extra long Compression stocking buttocks high for pt 01/28/2024 Active traMADol HCl 50 MG 1 tablet as needed Orally four times a day Dr. Parker Active Vitamin E 400 UNIT 1 capsule orally once a day Not-Taking Vitamin D 2000 UNIT 1 tablet Orally Once a day Not-Taking Ferrous Sulfate 325 (65 Fe) MG 2 tablet Orally Once a day; Duration: 90 days Active sulfaSALAzine 500 MG 1 tablet Orally four times a day; Duration: [address] Parker Active Vitamin C 1000 MG 1 tablet orally once a day; Duration: 90 days Active Blood Pressure Monitor - use to check blood pressure daily; Duration: 30 days 12/02/2023 Active predniSONE 5 MG 1 tablet Orally Once a day Dr. Parker Active Gabapentin 800 MG 1 tablet Orally 3 times a day; Duration: [address] Parker Active Leflunomide 20 MG 1 tablet Orally Once a day; Duration: [address] Parker Active Aspirin Adult Low Dose 81 MG 1 tablet Orally Once a day; Duration: 90 days Not-Taking Hydroxychloroquine Sulfate 200 MG 1 tablet with food or milk Orally twice a day; Duration: [address] Parker Active Atorvastatin Calcium 10 MG TAKE 1 TABLET BY MOUTH EVERY DAY; Duration: 90 Active Klor-Con 20 MEQ MIX AND DRINK 1 PACKET BY MOUTH DAILY WITH FOOD; Duration: 90 days Active diazePAM 5 MG 1 tablet as needed Orally Once a day; Duration: 90 days take half an hour before flight 11/11/2023 Active Folic Acid 1 MG 1 tablet Orally Once a day; Duration: [address] Parker Active Atorvastatin Calcium 20 MG TAKE 1 TABLET ONCE DAILY; Duration: 90 Active Lisinopril-hydroCHLOROth iazide 10-12.5 MG TAKE 1 TABLET DAILY; Duration: 90 Active Metoprolol Succinate ER 100 MG TAKE 1 TABLET DAILY; Duration: 90 Active Potassium Chloride ER 20 MEQ 1 tablet with food Orally Once a day; Duration: 90 days Active Multivitamin Adult one daily N ot-Taking CoQ10 100 MG 1 capsule orally once a day Not-Taking Immunizations Vaccine Route Administration Date Status Comme [...] Status W/U Status Risk Notes Problem Anemia (639185651) Anemia, unspecified (D64.9) Active confirmed Problem Morbid obesity (disorder) (246789638) Morbid (severe) obesity due to excess calories (E66.01) Active confirmed Problem Mixed hyperlipidemia (340227518) Mixed hyperlipidemia (E78.2) Active confirmed Problem Lymphedema (604881146) Lymphedema, not elsewhere classified (I89.0) Active confirmed Problem Myopathy due to rheumatoid arthritis (290710869) 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 Problem Paresthesia (finding) (38166236) Paresthesia of skin (R20.2) Active confirmed Problem Dizziness and giddiness (079514907) Dizziness and giddiness (R42) Active confirmed Problem Abnormal results of liver function studies (458974922) Abnormal results of liver function studies (R94.5) Active confirmed Problem Essential hypertension (72022126) Essential (primary) hypertension (I10) Active confirmed Problem Wild type ATTR amyloidosis (disorder) (589517399) 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) Active confirmed Problem Chronic kidney disease stage 3A (disorder) (360151550) Chronic kidney disease, stage 3a (N18.31) Active confirmed Vital Signs Heart Rate 71 /min 12/13/2024 Temperature 96.0 degrees Fahrenheit 12/13/2024 Oximetry 98 % 12/13/2024 Blood pressure diastolic 82 mm Hg 12/13/2024 Height 64 in 12/13/2024 Blood pressure systolic 130 mm Hg 12/13/2024 Weight 239.7 lbs 12/13/2024 BMI 41.14 kg/m2 12/13/2024 Encounters Encounter Location Date Provider Diagnosis [address] [place] [address] 04/22/2024 JESUS ROBLES Encounter for genera l adult medical examination without abnormal findings Z00.00 ; Essential (primary) hypertension I10 ; Mixed hyperlipidemia E78.2 ; 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 M05.49 ; Morbid (severe) obesity due to excess calories E66.01 and Chronic kidney disease, stage 3a N18.[address] [place] [address] 08/30/2024 Winnie Louise Pre-operative cleara nce Z01.[address] [place] [address] 12/13/2024 JESUS ROBLES Essential (primary) hypertension I10 ; Mixed hyperlipidemia E78.2 ; 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 M05.49 ; Morbid (severe) obesity due to excess calories E66.01 ; Wild-type transthyretin-related (ATTR) amyloidosis E85.82 ; Lymphedema, not elsewhere classified I89.0 and Dietary counseling and surveillance Z71.[address] [place] [address] 03/16/[address] [place] [address] 04/06/[address] [place] [address] 04/21/[address] [place] [address] 05/30/[address] [place] [address] 06/03/[address] [place] [address] 08/16/[address] [place] [address] 08/30/2024 Winnie Louise [address] [place] [address] 09/01/[address] [place] [address] 10/05/[address] [place] [address] 10/06/[address] [place] [address] 10/13/[address] [place] [address] 12/27/2024 [facility] Assessments Encounter Date Diagnosis (ICD Code) Assessment [...] lives by herself. She will benefit from BUSINESS DEVELOPMENT for a few hours a week to help her with laundry, cleaning, shopping, showering etc. Blood work reviewed and questions answered 08/30/2024 Pre-operative clearance (ICD-10 - Z01.818) Mrs. Salomon is a 64-year-old lady with anemia, hypertension, hyperlipidemia, rheumatoid arthritis, lymphedema and morbid obesity here for pre-op for Intraarticular injection to be done at [facility] with Cristi PEREZ. Plan as follows: Cardiac assessment. Patient can easily do 4 METS. Blood pressure and exam is within normal limits. Pulmonary assessment. Lung exam is normal. No further Intervention NPO on the day of surgery. Take your medications after the surgery. Hold NSAIDs and aspirin 5 days before the procedure. She is no longer taking ASA, Based on ASCVD risk tetryl dissolver operator plus, patient is a low risk with score of 3.7 for developing CVD. Hold off on [place] supplement 5 days prior to procedure. Low risk procedure in a low risk patient. No contraindications for the procedure at this point in time I have rendered the services for this patient under direct supervision of Dr. Robles, who did not see the patient but was available upon request 12/13/2024 Mixed hyperlipidemia (ICD-10 - E78.2) Mrs. Salomon is a 64-year-old lady with anemia, hypertension, hyperlipidemia, rheumatoid arthritis, lymphedema and morbid obesity and had MRI showed severe spinal Stenosis is here today for follow-up. Hypertension/hyperl ipidemia. Blood pressure well controlled on lisinopril/HCTZ 10/12.5 mg, metoprolol ER 100 mg daily. Mixed hyperlipidemia. Continue on atorvastatin 20 mg daily and check lipid panel. Lymphedema. Discussed with the patient in detail that it is not coming from the heart, liver or kidneys. We also reviewed echocardiogram which was done in March 2024 which showed normal EF of 60-65% with mild left ventricular hypertrophy and mild MR and TR and mild calcification of aortic cusps. She was encouraged to continue to use compression stockings and she will go to lymphedema clinic. Rheumatoid arthritis and she follows up with wash oil pump operator on a regular basis and have regular surveillance blood work. Family history of amyloidosis. His father had amyloidosis according to the patient and we did put a referral for genetic testing but she has not heard from them so far. We discussed that patient will call her insurance company and will let us know where we should refer her. She understands and agrees to the plan. Morbid obesity. Complications of obesity discussed. Encouraged low calorie, low carbohydrate diet and goal is to lose 6 pounds of months. Screening blood work ordered. Medications reviewed 12/13/2024 Essential (primary) hypertension (ICD-10 - I10) Mrs. Salomon is a 64-year-old lady with anemia, hypertension, hyperlipidemia, rheumatoid arthritis, lymphedema and morbid obesity and had MRI showed severe spinal Stenosis is here today for follow-up. Hypertension/hyperl ipidemia. Blood pressure well controlled on lisinopril/HCTZ 10/12.5 mg, metoprolol ER 100 mg daily. Mixed hyperlipidemia. Continue on atorvastatin 20 mg daily and check lipid panel. Lymphedema. Discussed with the patient in detail that it is not coming from the heart, liver or kidneys. We also reviewed echocardiogram which was done in March 2024 which showed normal EF of 60-65% with mild left ventricular hypertrophy and mild MR and TR and mild calcification of aortic cusps. She was encouraged to continue to use compression stockings and she will go to lymphedema clinic. Rheumatoid arthritis and she follows up with wash oil pump operator on a regular basis and have regular surveillance blood work. Family history of amyloidosis. His father had amyloidosis according to the patient and we did put a referral for genetic testing but she has not heard from them so far. We discussed that patient will call her insurance company and will let us know where we should refer her. She understands and agrees to the plan. Morbid obesity. Complications of obesity discussed. Encouraged low calorie, low carbohydrate diet and goal is to lose 6 pounds of months. Screening blood work ordered. 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 Salomon is a 64-year-old lady with anemia, hypertension, hyperlipidemia, rheumatoid arthritis, lymphedema and morbid obesity and had MRI showed severe spinal Stenosis is here today for follow-up. Hypertension/hyperl ipidemia. Blood pressure well controlled on lisinopril/HCTZ 10/12.5 mg, metoprolol ER 100 mg daily. Mixed hyperlipidemia. Continue on atorvastatin 20 mg daily and check lipid panel. Lymphedema. Discussed with the patient in detail that it is not coming from the heart, liver or kidneys. We also reviewed echocardiogram which was done in March 2024 which showed normal EF of 60-65% with mild left ventricular hypertrophy and mild MR and TR and mild calcification of aortic cusps. She was encouraged to continue to use compression stockings and she will go to lymphedema clinic. Rheumatoid arthritis and she follows up with wash oil pump operator on a regular basis and have regular surveillance blood work. Family history of amyloidosis. His father had amyloidosis according to the patient and we did put a referral for genetic testing but she has not heard from them so far. We discussed that patient will call her insurance company and will let us know where we should refer her. She understands and agrees to the plan. Morbid obesity. Complications of obesity discussed. Encouraged low calorie, low carbohydrate diet and goal is to lose 6 pounds of months. Screening blood work ordered. Medications reviewed 04/22/2024 Essential (primary) hypertension (ICD-10 - I10) [...] lives by herself. She will benefit from BUSINESS DEVELOPMENT for a few hours a week to [...] lives by herself. She will benefit from BUSINESS DEVELOPMENT for a few hours a week to help her with laundry, cleaning, shopping, showering etc. Blood work reviewed and questions answered 12/13/2024 Morbid (severe) obesity due to excess calories (ICD-10 - E66.01) Mrs. Salomon is a 64-year-old lady with anemia, hypertension, hyperlipidemia, rheumatoid arthritis, lymphedema and morbid obesity and had MRI showed severe spinal Stenosis is here today for follow-up. Hypertension/hyperl ipidemia. Blood pressure well controlled on lisinopril/HCTZ 10/12.5 mg, metoprolol ER 100 mg daily. Mixed hyperlipidemia. Continue on atorvastatin 20 mg daily and check lipid panel. Lymphedema. Discussed with the patient in detail that it is not coming from the heart, liver or kidneys. We also reviewed echocardiogram which was done in March 2024 which showed normal EF of 60-65% with mild left ventricular hypertrophy and mild MR and TR and mild calcification of aortic cusps. She was encouraged to continue to use compression stockings and she will go to lymphedema clinic. Rheumatoid arthritis and she follows up with wash oil pump operator on a regular basis and have regular surveillance blood work. Family history of amyloidosis. His father had amyloidosis according to the patient and we did put a referral for genetic testing but she has not heard from them so far. We discussed that patient will call her insurance company and will let us know where we should refer her. She understands and agrees to the plan. Morbid obesity. Complications of obesity discussed. Encouraged low calorie, low carbohydrate diet and goal is to lose 6 pounds of months. Screening blood work ordered. 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 Salomon is 64 years old lady with hypertension, hyperlipidemia, rheumatoid arthritis and follows up with Dr. Mhamood, chronic kidney disease stage IIIa and follow-up [...] lives by herself. She will benefit from BUSINESS DEVELOPMENT for a few hours a week to help her with laundry, cleaning, shopping, showering etc. Blood work reviewed and questions answered 12/13/2024 Wild-type transthyretin-rel ated (ATTR) amyloidosis (ICD-10 - E85.82) Mrs. Salomon is a 64-year-old lady with anemia, hypertension, hyperlipidemia, rheumatoid arthritis, lymphedema and morbid obesity and had MRI showed severe spinal Stenosis is here today for follow-up. Hypertension/hyperl ipidemia. Blood pressure well controlled on lisinopril/HCTZ 10/12.5 mg, metoprolol ER 100 mg daily. Mixed hyperlipidemia. Continue on atorvastatin 20 mg daily and check lipid panel. Lymphedema. Discussed with the patient in detail that it is not coming from the heart, liver or kidneys. We also reviewed echocardiogram which was done in March 2024 which showed normal EF of 60-65% with mild left ventricular hypertrophy and mild MR and TR and mild calcification of aortic cusps. She was encouraged to continue to use compression stockings and she will go to lymphedema clinic. Rheumatoid arthritis and she follows up with wash oil pump operator on a regular basis and have regular surveillance blood work. Family history of amyloidosis. His father had amyloidosis according to the patient and we did put a referral for genetic testing but she has not heard from them so far. We discussed that patient will call her insurance company and will let us know where we should refer her. She understands and agrees to the plan. Morbid obesity. Complications of obesity discussed. Encouraged low calorie, low carbohydrate diet and goal is to lose 6 pounds of months. Screening blood work ordered. Medications reviewed 04/22/2024 Morbid (severe) obesity due to excess [...] lives by herself. She will benefit from BUSINESS DEVELOPMENT for a few hours a week to help her with laundry, cleaning, shopping, showering etc. Blood work reviewed and questions answered 12/13/2024 Lymphedema, not elsewhere classified (ICD-10 - I89.0) Mrs. Salomon is a 64-year-old lady with anemia, hypertension, hyperlipidemia, rheumatoid arthritis, lymphedema and morbid obesity and had MRI showed severe spinal Stenosis is here today for follow-up. Hypertension/hyperl ipidemia. Blood pressure well controlled on lisinopril/HCTZ 10/12.5 mg, metoprolol ER 100 mg daily. Mixed hyperlipidemia. Continue on atorvastatin 20 mg daily and check lipid panel. Lymphedema. Discussed with the patient in detail that it is not coming from the heart, liver or kidneys. We also reviewed echocardiogram which was done in March 2024 which showed normal EF of 60-65% with mild left ventricular hypertrophy and mild MR and TR and mild calcification of aortic cusps. She was encouraged to continue to use compression stockings and she will go to lymphedema clinic. Rheumatoid arthritis and she follows up with wash oil pump operator on a regular basis and have regular surveillance blood work. Family history of amyloidosis. His father had amyloidosis according to the patient and we did put a referral for genetic testing but she has not heard from them so far. We discussed that patient will call her insurance company and will let us know where we should refer her. She understands and agrees to the plan. Morbid obesity. Complications of obesity discussed. Encouraged low calorie, low carbohydrate diet and goal is to lose 6 pounds of months. Screening blood work ordered. Medications reviewed 04/22/2024 Chronic kidney disease, stage 3a (ICD-10 [...] lives by herself. She will benefit from BUSINESS DEVELOPMENT for a few hours a week to help her with laundry, cleaning, shopping, showering etc. Blood work reviewed and questions answered 12/13/2024 Dietary counseling and surveillance (ICD-10 - Z71.3) Mrs. Salomon is a 64-year-old lady with anemia, hypertension, hyperlipidemia, rheumatoid arthritis, lymphedema and morbid obesity and had MRI showed severe spinal Stenosis is here today for follow-up. Hypertension/hyperl ipidemia. Blood pressure well controlled on lisinopril/HCTZ 10/12.5 mg, metoprolol ER 100 mg daily. Mixed hyperlipidemia. Continue on atorvastatin 20 mg daily and check lipid panel. Lymphedema. Discussed with the patient in detail that it is not coming from the heart, liver or kidneys. We also reviewed echocardiogram which was done in March 2024 which showed normal EF of 60-65% with mild left ventricular hypertrophy and mild MR and TR and mild calcification of aortic cusps. She was encouraged to continue to use compression stockings and she will go to lymphedema clinic. Rheumatoid arthritis and she follows up with wash oil pump operator on a regular basis and have regular surveillance blood work. Family history of amyloidosis. His father had amyloidosis according to the patient and we did put a referral for genetic testing but she has not heard from them so far. We discussed that patient will call her insurance company and will let us know where we should refer her. She understands and agrees to the plan. Morbid obesity. Complications of obesity discussed. Encouraged low calorie, low carbohydrate diet and goal is to lose 6 pounds of months. Screening blood work ordered. Medications reviewed Plan Of Treatment Pending Test Test Name Order Date Echocardiogram 01/28/2024 MAMMOGRAM, SCREENING 04/22/2024 BASIC METABOLIC PANEL 06/26/2022 CBC with Diff, Platelet, [id number] 10/16 Albumin/Creatinine Ratio,[id number] Albumin/Creatinine Ratio,[id number] Lipid Panel-[id number] 11/02/2023 Lipid Panel-[id number] 12/13/2024 Basic Metabolic Panel [phone] Comp. Metabolic Panel [id number] 2023 Comp. Metabolic Panel [id number] 2024 Future Test Test Name Order Date Basic Metabolic Panel [id number] Next Appt Details Provider Name:JESUS ROBLES , 05/02/2025 01:00:00 PM, [address] [place] [address], [id number], Insurance Providers Payer Name Payer Address Payer Phone Subscriber Number Group Number Insured Name Patient Relationship to Insured Coverage Start Date Coverage End Date [employer] [address] [place] [address] [id number] Rita Salomon Self - patient is the insured 4 [employer] [place] [address] [place] [address] [id number] Rita Salomon Self - patient is the insured 4 Medical (General) History Medical History History ICD Code anemia- Dr Hankins hypertension, benign hyperlipidemia rheumatoid arthritis- Dr Alicia PMR Eczema and she DR Hardy Concussion and see Dr Alonso Surgical History Surgery Date(Month/Year) tonsillectomy section
[2025-03-21 13:19] VITALS: BMI 45.7
[2025-03-21 13:35] VITALS: BP 147/77; PULSE 74; RESP 16; O2SAT 97
--- NOTE | 2025-03-21 13:54 | HO.ANESPROP2 ---
Documented by User: Alina Javed NP 04/03/25 09:07 HPI - Anesthesia Eval Consult details Narrative: 64 yr old female for right L3-4, L4-5 Decompression scheduled for 04/05/25, seen in [facility] on 03/21/25 Labs pending BMI 46 *on daily prednisone, see below No recent illness. No CP/SOB with very limited activity 2/2 pain in back and down right leg Rheumatoid arthritis: on prednisone 5 mg daily, sulfasalazine (will stop 2 weeks prior, hold 2 weeks after), leflunomide, hydroxychloroquine HTN: on TAMI/HCTZ, metoprolol, follows with renal CKD stage 3a: follows with [facility] renal, last visit 10/2024, stable, 6 month f/u planned. Lymphadema: wears compression stockings; reportedly (per PCP note 11/2024) had echo 03/2024 (not found in [facility] or [facility] or [facility] EMR), showing normal EF 60-65% with mild left ventricular hypertrophy and mild MR, TR and mild calcification of aortic cusps. STOP BAN-5 on 03/21/25 [facility] Active Problems Active Problems: All Active Problems Lumbar stenosis with neurogenic claudication (Acute) WILLIAM (acute kidney injury) (Acute) Hypertension (Acute) Past Medical History Medical History (Updated 03/21/25 @ 13:47 by Susan Alegre, CHAMP) Hx of concussion (~2015) Spinal stenosis Recent bereavement Depression Anxiety Ambulates with cane Concussion Eczema Rheumatoid arthritis Hyperlipidemia Hypertension Anemia Chronic kidney disease, stage 3a Family History Family History (Updated 03/21/25 @ 14:28 by Susan Alegre, RN) Father Amyloidosis Family history of problems with anesthesia: No Surgical History Surgical History (Updated 03/21/25 @ 13:55 by Susan Alegre, CHAMP) H/O section Hx of tonsillectomy (1990) History of Problems with Anesthesia: No Social History Social History Are you a primary care mgr to a significant other at home: No Do you presently have visiting nurse or other home services: No Patient Tobacco Use Status: Never used Tobacco Use of substances other than those prescribed or required for medical reasons: No Have you been hit, kicked, punched, or otherwise hurt by someone within the past year? If so, by whom?: No Are you DNR?: No Advance Directives: No Advance Directives Information Provided: Yes Advance Directives on File: No Meds Allergies Allergy/AdvReac Type Severity Reaction Status Date / Time doxycycline Allergy Severe Hives Verified 03/21/25 13:18 erythromycin base Allergy Severe Hives Verified 03/21/25 13:18 kiwi Allergy Severe Hives Verified 03/21/25 13:18 latex Allergy Severe Shortness Verified 03/21/25 13:18 of Breath Penicillins Allergy Severe Hives Verified 03/21/25 13:18 strawberry Allergy Severe Hives Verified 03/21/25 13:18 tomato Allergy Intermediate itchy Verified 03/21/25 13:18 tongue Home Medications ?Medication ?Instructions ?Recorded ?Confirmed ?Last Taken ?Type ferrous sulfate 325 mg (65 mg 325 mg PO DAILY 03/31/24 03/21/25 Unknown History iron) tablet folic acid 1 mg tablet 1 mg PO DAILY 03/31/24 03/21/25 Unknown History hydroxychloroquine 200 mg tablet 200 mg PO BID 03/31/24 03/21/25 Unknown History leflunomide 20 mg tablet 20 mg PO DAILY 03/31/24 03/21/25 Unknown History lisinopril 10 1 tab PO DAILY 03/31/24 03/21/25 Unknown History mg-hydrochlorothiazide 12.5 mg tablet metoprolol succinate 100 mg 100 mg PO DAILY 03/31/24 03/21/25 Unknown History tablet,extended release 24 hr potassium chloride 20 mEq 20 meq PO DAILY 03/31/24 03/21/25 Unknown History tablet,extended release prednisone 5 mg tablet 5 mg PO DAILY 03/31/24 03/21/25 Unknown History sulfasalazine 500 mg tablet 1,000 mg PO BID 03/31/24 03/21/25 03/21/25 History tramadol 50 mg tablet 50 mg PO Q6H PRN Pain 03/31/24 03/21/25 Unknown History ketorolac 0.5 % eye drops 1 drp ophthalmic (eye) BID 05/05/24 03/21/25 Unknown History atorvastatin 20 mg tablet 20 mg PO DAILY 11/03/24 03/21/25 Unknown History gabapentin 800 mg tablet 800 mg PO TID 11/03/24 03/21/25 Unknown History lidocaine 4 % topical patch 1 patch topical DAILY PRN Pain 03/21/25 03/21/25 Unknown History (Salonpas (lidocaine)) Exam Height,Weight and Vital Signs: Height 5 ft 2 in Weight 113.4 kg Last Vital Signs Pulse 74 03/21/25 13:35 Resp 16 03/21/25 13:35 BP 147/77 H 03/21/25 13:35 Pulse Ox 97 03/21/25 13:35 O2 Del Method Room Air 03/21/25 13:35 Pertinent Lab Results Pertinent Lab Results: Laboratory Tests 03/21/25 14:30 WBC 5.1 RBC 3.69 L Hgb 11.8 L Hct 36.9 L Plt Count 178 Sodium 143 Potassium 3.8 Chloride 106 Carbon Dioxide 31 H BUN 12 Creatinine 0.89 Narrative Narrative: EKG 06/2024 Sinus tachycardia, rate 107 *EKG done in ED when pt seen for N/V Airway Mallampati Class: IV TM Dist: >3cm Neck ROM: Limited Loose/Missing/Broken Teeth: No Heart: RRR Lungs: CTAB Assessment and Plan Final Anesthetic Review Family History of Problems with Anesthesia: No History of Problems with Anesthesia: No Documented by User: Micaela Newman MD 04/04/25 14:17 PMFSH Past Medical History Medical History (Updated 03/21/25 @ 13:47 by Susan Alegre, CHAMP) Hx of concussion (~2015) Spinal stenosis Recent bereavement Depression Anxiety Ambulates with cane Concussion Eczema Rheumatoid arthritis Hyperlipidemia Hypertension Anemia Chronic kidney disease, stage 3a Family History Family History (Updated 03/21/25 @ 14:28 by Susan Alegre, CHAMP) Father Amyloidosis Surgical History Surgical History (Updated 03/21/25 @ 13:55 by Susan Alegre, RN) H/O section Hx of tonsillectomy (1990) Social History Social History Are you a primary care mgr to a significant other at home: No Do you presently have visiting nurse or other home services: No Patient Tobacco Use Status: Never used Tobacco Use of substances other than those prescribed or required for medical reasons: No Have you been hit, kicked, punched, or otherwise hurt by someone within the past year? If so, by whom?: No Are you DNR?: No Advance Directives: No Advance Directives Information Provided: Yes Advance Directives on File: No Meds Allergies Allergy/AdvReac Type Severity Reaction Status Date / Time doxycycline Allergy Severe Hives Verified 03/21/25 13:18 erythromycin base Allergy Severe Hives Verified 03/21/25 13:18 kiwi Allergy Severe Hives Verified 03/21/25 13:18 latex Allergy Severe Shortness Verified 03/21/25 13:18 of Breath Penicillins Allergy Severe Hives Verified 03/21/25 13:18 strawberry Allergy Severe Hives Verified 03/21/25 13:18 tomato Allergy Intermediate itchy Verified 03/21/25 13:18 tongue Home Medications ?Medication ?Instructions ?Recorded ?Confirmed ?Last Taken ?Type ferrous sulfate 325 mg (65 mg 325 mg PO DAILY 03/31/24 03/21/25 Unknown History iron) tablet folic acid 1 mg tablet 1 mg PO DAILY 03/31/24 03/21/25 Unknown History hydroxychloroquine 200 mg tablet 200 mg PO BID 03/31/24 03/21/25 Unknown History leflunomide 20 mg tablet 20 mg PO DAILY 03/31/24 03/21/25 Unknown History lisinopril 10 1 tab PO DAILY 03/31/24 03/21/25 Unknown History mg-hydrochlorothiazide 12.5 mg tablet metoprolol succinate 100 mg 100 mg PO DAILY 03/31/24 03/21/25 Unknown History tablet,extended release 24 hr potassium chloride 20 mEq 20 meq PO DAILY 03/31/24 03/21/25 Unknown History tablet,extended release prednisone 5 mg tablet 5 mg PO DAILY 03/31/24 03/21/25 Unknown History sulfasalazine 500 mg tablet 1,000 mg PO BID 03/31/24 03/21/25 03/21/25 History tramadol 50 mg tablet 50 mg PO Q6H PRN Pain 03/31/24 03/21/25 Unknown History ketorolac 0.5 % eye drops 1 drp ophthalmic (eye) BID 05/05/24 03/21/25 Unknown History atorvastatin 20 mg tablet 20 mg PO DAILY 11/03/24 03/21/25 Unknown History gabapentin 800 mg tablet 800 mg PO TID 11/03/24 03/21/25 Unknown History lidocaine 4 % topical patch 1 patch topical DAILY PRN Pain 03/21/25 03/21/25 Unknown History (Salonpas (lidocaine)) Assessment and Plan Assessment Anesthesia Assessment: Anesthesia Plan Discussed and Chart Reviewed Final Anesthetic Review ASA Class: III Final Preanesthetic Review: No Changes in Pt Med Stat, Meds/Allgs Chart Reviewed, Consent Obtained/Reviewed and Anes Risks/Benef Reviewed Patient Risk: Intermediate Procedure Risk: Intermediate Anesthetic Plan Anesthetic Plan: GA and Agree w/ Assess. and Plan Disposition: Standard PACU
[2025-03-21 15:04] LABS: Hematocrit 36.9 % (37.0-47.0); Hemoglobin 11.8 g/dl (12.0-16.0); Mean Corpuscular HGB Conc 32.0 g/dl (31.0-35.0); Mean Corpuscular Hemoglobin 32.0 pg (27.0-33.0); Mean Corpuscular Volume 100.0 fL (80.0-98.0); NRBC Abs Auto 0.000 X10*3/uL (0.0-0.012); NRBC Pct Auto 0.0 /100WBC (0.0-0.2); Platelet Count 178 X10*3/uL (160-400); Red Blood Count 3.69 X10*6/uL (4.20-5.50); White Blood Count 5.1 X10*3/uL (4.8-10.8)
[2025-03-21 15:27] LABS: Anion Gap 10 (12-20); Blood Urea Nitrogen 12 mg/dL (9-16); Calcium 9.5 mg/dL (8.4-10.2); Carbon Dioxide 31 mmol/L (22-29); Chloride 106 mmol/L (96-108); Creatinine Clr Calc Pharmacy 78.0; Estimated Glomerular Filt Rate > 60; Potassium 3.8 mmol/L (3.3-5.1); Sodium 143 mmol/L (135-145)
--- NOTE | 2025-04-04 15:45 | MHC.SHP ---
Pre-Procedural Eval Section A - 24 Hr Update-Section A only Date of Service: 04/05/25 Section B - Complete if H&P > 30 days Chief Complaint: Spinal stenosis, lumbar region with neurogenic Allergies: Allergies Allergy/AdvReac Type Severity Reaction Status Date / Time doxycycline Allergy Severe Hives Verified 03/21/25 13:18 erythromycin base Allergy Severe Hives Verified 03/21/25 13:18 kiwi Allergy Severe Hives Verified 03/21/25 13:18 latex Allergy Severe Shortness Verified 03/21/25 13:18 of Breath Penicillins Allergy Severe Hives Verified 03/21/25 13:18 strawberry Allergy Severe Hives Verified 03/21/25 13:18 tomato Allergy Intermediate itchy Verified 03/21/25 13:18 tongue Review of Systems Sugical H&P ROS: Negative: Constitution, Cardiovascular, Respiratory, Neurological, Psychiatric, Hem-Onc, Allergic/Immunologic, Gastrointestinal, Genitourinary, Musculoskeletal, Integumentary, Endocrine and Eyes/Ears/Nose/Throat Exam Surgical H&P Exam: Not Evaluated: HEENT, Not Evaluated: Heart, Not Evaluated: Lungs, Not Evaluated: Extremities, Not Evaluated: Abdomen, Not Evaluated: Skin and Not Evaluated: Neurological Exam Comment: The patient is awake, alert, in no acute distress. Proposed surgical incision site is clean, dry, with no signs of recent trauma. Plan Diagnosis/Plan: Unchanged I have reviewed the history and physical and performed a pertinent physical examination on my patient. No changes have occurred unless specified. Plan remains the same, L3-4, L4-5 lumbar decompression Time Spent With Patient Time: Total time managing care of this patient today __9__ minutes.
[2025-04-05] VITALS (12 sets, daily range): BP systolic 120–174; BP diastolic 62–98; PULSE 66–74; RESP 12–23; TEMP 35.5–36.3; O2SAT 95–100; BMI 45.8
--- NOTE | ~2025-04-05 | FL_ITS ---
EXAMINATION: FL GUIDANCE ONLY HISTORY: l3-5 compression COMPARISON: None available. TECHNIQUE: Fluoroscopy time: 3.4 seconds. Cumulative Dose: 3.4338 mGy. DAP: 1.2532 Gycm2 Images: 2. FINDINGS: Fluoroscopic spot films of the lumbar spine in the lateral projection demonstrate a needle at the L3-4 level and a probe at the L5-S1 level. FL/FL guidance in OR IMPRESSION: Fluoroscopy during procedure. Please see procedure report for additional information. Electronically signed by: Froylan Fatima MD 04/05/2025 09:20 AM DEANDRE
[2025-04-05] MEDS: vancomycin/NS 2,000 MG/500 ML PLAST..BAG 250 MG IV (06:40)
[2025-04-05] MEDS: Lactated Ringers 1,000 ML 100 ML IVCONT (06:50)
--- NOTE | 2025-04-05 09:28 | W.PM.OPN ---
Operative Note Operative Note Date of Service: 04/05/25 Narrative: Preoperative Diagnosis: L3-4, L4-5 spinal stenosis/lateral recess stenosis/neural foraminal stenosis Operation: Right L3-4, L4-5 Laminotomy, Partial facetectomy and foraminotomy with use of microscope Consent Informed Consent was obtained for this operation. I have explained the nature, purpose and benefits of the operation. I have discussed the risks and benefit of the operation including possible complications or adverse events with patient/family. Alternative(s) were discussed with the patient with their relative benefits and risks as well as the consequences of not accepting the operation were included in obtaining consent. Surgeon: DELIA PABON MD, PHD Procedure Assisted By: Darron Villagomez Description of Procedure This 64-year-old female suffering from unilateral neurogenic claudication with right-sided leg pain. MRI shows spinal stenosis L3-4 and L4-5. The patient was offered a right-sided decompression. The procedure complications were explained. The patient was consented. The patient was brought to the operating room and endotracheally intubated. The patient was turned in prone position on the Roc frame. Prep and drape was done followed by timeout. The Physician emergency medicine physician assistant provided access. A mid lumbar incision was made followed by release of the paravertebral muscle on the right side to expose the L3-L5 lamina and facet joints. An intraoperative x-ray was obtained to confirm the correct level. The microscope was brought in. I took over the procedure. The high-speed drill was used to do a right L3-4 laminotomy until flavum ligament was reached. A #2 Kerrison was used to expand the laminotomy near flush to the pedicles and to include a partial facetectomy. The flavum ligament was opened and resected with a #3 Kerrison to decompress the underlying thecal sac. The flavum ligament was removed to decompress the lateral recess and the exiting L4 nerve roots. A long nerve hook could be easily passed along the medial side of the pedicles as a sign of adequate decompression. An attention was turned to the L4-5 level. A left-sided L4-5 laminotomy was done. Patient has congenital small lamina. Therefore I had to drill basically under the spinous process to expose the flavum ligament. Eventually, a very thick flavum ligament was opened and resected to decompress the underlying thecal sac and exiting L5 nerve root. The microscope was removed. Hemostasis was done. The physician emergency medicine physician assistant close the incision in 2 layers. Steri-Strips were used to approximate incision. An OpSite with Tegaderm was used to cover the incision. All sponge needle counts were correct. Patient was extubated and transported in stable is to recovery room. Anesthesia: General Estimated Blood Loss (ml): 30 Complications: None Duration of Surgery: 100 Minutes Postoperative Plan: Discharge to home
--- NOTE | 2025-04-05 09:48 | PM.DS ---
DS: Providers Provider Date of Service: 04/05/25 Date of discharge: 04/05/25 Primary care physician: Ashvin Roman MD DS: Summary Time Attestation Discharge Coordination Time (in mins): 12 Quality: Safe Use of Opioids Does Pt have an Active Cancer Diagnosis on the Problem List?: No Quality: Stroke Does the patient have a stroke diagnosis?: No Physical Exam Vital Signs: Vital Signs: Last Vital Signs Temp 96 F L 04/05/25 06:48 Pulse 66 04/05/25 06:48 Resp 16 04/05/25 06:48 BP 174/98 H 04/05/25 06:48 Pulse Ox 98 04/05/25 06:48 O2 Del Method Room Air 04/05/25 06:48 BMI result Body Mass Index 45.8 Discharge Plan Discharge Patient Disposition: Home, Self-Care Referrals: Ashvin Roman MD [Primary Care Provider, Primary Care] - 1 Week Discharge Medications: New oxycodone 5 mg tablet 5 mg PO Q8H PRN (Reason: pain) Qty: 20 0RF Rx Instructions: Partial Fill upon patient request. Continued lidocaine [Salonpas (lidocaine)] 4 % Adhesive Patch,Medicated 1 patch TOPICAL DAILY PRN (Reason: Pain) lisinopril-hydrochlorothiazide 10-12.5 mg tablet 1 tab PO DAILY metoprolol succinate 100 mg tablet extended release 24 hr 100 mg PO DAILY hydroxychloroquine 200 mg tablet 200 mg PO BID tramadol 50 mg tablet 50 mg PO Q6H PRN (Reason: Pain) sulfasalazine 500 mg tablet 1,000 mg PO BID folic acid 1 mg tablet 1 mg PO DAILY ferrous sulfate 325 mg (65 mg iron) tablet 325 mg PO DAILY potassium chloride 20 mEq tablet extended release 20 meq PO DAILY ketorolac 0.5 % drops 1 drp ophthalmic (eye) BID gabapentin 800 mg tablet 800 mg PO TID atorvastatin 20 mg tablet 20 mg PO DAILY Held leflunomide 20 mg tablet 20 mg PO DAILY Hold Instructions: Resume on 04/12/25. Call your prescriber to ask when it is appropriate to restart this, it can interfere with wound healing Discontinued prednisone 5 mg tablet 5 mg PO DAILY Discharge Orders: Discharge Order (Routine); Ordered 04/05/25 Ordered By: Darron Siegel Diet: Advance to usual diet Activity on Discharge: As tolerated Activity Restrictions/Additional Instructions: After your spinal surgery we ask you to observe the following restrictions/guidelines: Activity: It is normal to feel some discomfort as you increase your activity, but that will improve with time. We ask you avoid heavy lifting or acitivities that cause pain. As a general rule, 8lbs is a safe limit for lifting right after surgery. Walk as much as you feel comfortable but not to exhaustion. You will feel extra tired the first few days after surgery. Stay well hydrated. It is OK to walk up and down stairs You may return to driving when you are off narcotics (such as vicodin, oxycodone, dilaudid, etc), and you are back to normal functional capacity. If you have any concerns please check with office before driving. Return to work is specific to each patient and each surgery, so please speak with your doctor/PA at first follow up. Please bring paperwork such as FMLA at that time if you need it filled out. Medications: You may continue to take your tramadol pain medication, please only utilize the oxycodone that we sent in for you if you have breakthrough pain secondary to [id number] medications and/or tramadol. We recommend you take 500mg Tylenol every 4 hours for the first week after surgery, if you do not have any liver issues and can tolerate this medication. Do not exceed 4,000mg daily. We also recommend you take Ibuprofen 600mg every 8 hours for the first week after surgery starting on post op day 1, ?if you do not have any kidney or sugar control issues and can tolerate this medication. Do not exceed 2,000mg daily. We will give you a short supply of narcotics after surgery (usually one weeks worth). If you need more please call the office but do not use more than prescribed. You will need to give our office 48 hours notice if you need narcotics refilled and we do not fill narcotics on weekends or evenings. If you are on a narcotic, it is a good idea to take a stool softener such as colace or senna to avoid constipation If you take blood thinner such as aspirin, Plavix, Coumadin, Effient, Eliquis etc for conditions such as Afib, DVT, Pulmonary embolus, coronary disease, stents etc please speak with your surgeon about specific details as to when you can resume these medications. You can resume NSAIDs on post op day 1 (eg: Motrin, Naproxen, etc). Follow up: Please call the office, , after surgery to arrange a 3 week follow up for wound check. Wound Care: You will need to follow up in clinic in 10-14 days to have your suture removed You may remove your dressing on the first day after surgery. ?You may ?leave open to air. Please do not remove the steri strips underneath. they will fall off on their own in one week. IT IS NORMAL FOR THE WOUND TO OOZE OR BE BLOODY FOR A FEW DAYS AFTER SURGERY. ?IF THIS HAPPENS JUST PLACE NEW DRESSING OVER IT TO AVOID STAINING CLOTHES. You may shower on post op day # 1 We ask that you do not let the water soak the wound. If it does get wet, just towel dry lightly. Please do not scrub your incision or place any type of chemical/ointment on the wound. No tub baths, pools or jacuzzis for one month. If you have any leaking or redness from your wound, or fevers, please call the office. Print Language: Persian
[2025-04-05] MEDS: oxyCODONE HCl Immed Release 5 MG TABLET PO (11:28)
--- NOTE | 2025-04-05 11:47 | PC.NURSE ---
1100-pt recovered from pacu and assisted with 2 nurses to sitting position; pt had difficulty sitting and it took great effort to motivate her to stand to pivot to bedside chair. Once to chair, I helped her dress and asked her to stand to pull up her pants; she again had great difficulty and was leaning back in guarded position; oxcodone order was obtained and given, and pt eventually was able to stand with help and a walker to pull up her pants and couldn't remain standing for more than a minute; pt helped back onto chair. Message send to Dr Bender and JAMILA Siegel to come evaluate patient when they are out of surgery.
== END 2025-04-05 13:36 | disposition home or self-care (01) ==
PROVIDERS: Nurse Practitioner; PCP Hospitalist; Visit Provider Neurological Surgery
PROC: (CPT 63047; principal; 2025-04-05 07:30)
DX: M48.062 Spinal stenosis, lumbar region with neurogenic claudication (principal); M79.604 Pain in right leg; R20.0 Anesthesia of skin; I89.0 Lymphedema, not elsewhere classified; R26.2 Difficulty in walking, not elsewhere classified; I10 Essential (primary) hypertension; E87.6 Hypokalemia; R60.9 Edema, unspecified; E78.00 Pure hypercholesterolemia, unspecified; M06.9 Rheumatoid arthritis, unspecified; Z79.52 Long term (current) use of systemic steroids; Z79.899 Other long term (current) drug therapy; Z99.89 Dependence on other enabling machines and devices; Z88.0 Allergy status to penicillin; Z88.1 Allergy status to other antibiotic agents; Z91.040 Latex allergy status; Z98.890 Other specified postprocedural states
CPT/HCPCS: 63047; 63048; 36415; 80048; 85027; J0131; J1100; J2003; J2250; J2405; J2704; J3010; J3373

== ENCOUNTER → 2025-04-05 05:49 | Outpatient (BNV) | payer MEDICARE, MEDICAID, SELFPAY | PROVIDERS: PCP Hospitalist; Visit Provider Neurological Surgery | DX: M48.062 Spinal stenosis, lumbar region with neurogenic claudication (principal) | CPT/HCPCS: 63047; 63048; 99499 ==

== ENCOUNTER 2025-04-17 11:25 | Outpatient (REF) | payer MEDICARE, MEDICAID, SELFPAY ==
[2025-04-17 14:17] LABS: Anion Gap 13 (12-20); Blood Urea Nitrogen 11 mg/dL (9-16); Carbon Dioxide 32 mmol/L (22-29); Chloride 104 mmol/L (96-108); Estimated Glomerular Filt Rate 48; Potassium 3.9 mmol/L (3.3-5.1); Sodium 145 mmol/L (135-145)
== END 2025-04-17 11:26 | disposition home or self-care (01) ==
LOC: HO.LAB 11:25
PROVIDERS: Internal Medicine Nephrology; PCP Hospitalist; Visit Provider Physician Assistant
DX: Z98.890 Other specified postprocedural states (principal); I10 Essential (primary) hypertension
CPT/HCPCS: 36415; 80051; 82565; 84520; 99212

== ENCOUNTER 2025-04-17 11:25 | Outpatient (AMB) | payer MEDICARE, MEDICAID, SELFPAY ==
--- NOTE | 2025-04-17 10:56 | A.SPINEOV_ITS ---
Intake Visit Reasons: Suture Removal Intake Note: Ms. Salomon is here today to have her Suture's Removed. Edi Analyst Required: No Allergies doxycycline Allergy (Severe, Verified 03/21/25 13:18) Hives erythromycin base Allergy (Severe, Verified 03/21/25 13:18) Hives kiwi Allergy (Severe, Verified 03/21/25 13:18) Hives latex Allergy (Severe, Verified 03/21/25 13:18) Shortness of Breath Penicillins Allergy (Severe, Verified 03/21/25 13:18) Hives strawberry Allergy (Severe, Verified 03/21/25 13:18) Hives tomato Allergy (Intermediate, Verified 03/21/25 13:18) itchy tongue Assessment & Plan Assessment & Plan (1) Status post lumbar spine surgery for decompression of spinal cord: Code(s): Z98.890 - Other specified postprocedural states Category: Surgical Plan Operation: Right L3-4, L4-5 Laminotomy, Partial facetectomy and foraminotomy Rita comes in today for suture removal after having the above mentioned procedure completed by Dr. Bender. She reports that overall she has been doing well since her surgery. Unfortunately she decided to lift a Thanksgiving turkey several times in order to purchase it / clean it / season it / cook it. She felt a dull throbbing pain deep in her low back which has persisted since then. She was otherwise doing very well up until this point. I encouraged her to refrain from any further heavy weight lifting and to remain at an 8-12 pound weight restriction until we see her again. She was also encouraged to get outside and walk daily as she heals from surgery. She asked if she should be starting physical therapy at this time and I encouraged her to focus on basic activities of daily living and walking for the time being. I answered all questions she had related to the postoperative healing course to the best of my ability. No new neurological deficits. The patient ambulates well and rises from a seated position without difficulty. She utilizes a cane to ambulate. I removed a single running suture over her incision site. She tolerated the removal well. I would like to follow up with the patient again in 6 weeks for his 2nd postoperative visit. Darron Bender MD,PhD [facility] Coding Level of Care Code Global (22159) Diagnoses Status post lumbar spine surgery for decompression of spinal cord Z98.890
--- OUTSIDE RECORDS SUMMARY | 2025-04-17 15:07 | XMS_ITS | Clinical Summary ---
Author Organization [facility] Address [address] [place] [id number] Phone Care Team Providers Care Spouter Name Role Phone JessieBlasrodrigue Armenta MD Primary Care Provider [phone] Allergies Active Allergy Reactions Criticality Noted Date Comments Doxycycline Calcium 08/29/2024 Kiwi 08/29/2024 Latex 08/29/2024 Penicillins 08/29/2024 [place] 08/29/2024 Medications traMADoL (ULTRAM) 50 mg tablet [...] Payer (Ef fective 2017-Present) Name:Rita Salomon Member ID:[id number] Relation to Subscriber:Self Name:Rita Salomon Subscriber ID:[id number] Payer ID:[id number] Group ID:Not on file Type:Medicare Address: [facility] [facility] [employer] [address] [place] [address] [facility] MEDICARE REPLACEMENT MEDICARE PART A & B [facility] MEDICARE REPLACEMENT MEDICARE PART A & B MEDICARE PART A & B MEDICARE PART A & [facility] MEDICARE REPLACEMENT MEDICARE PART A & B MEDICARE PART A & B [facility] MEDICARE REPLACEMENT MEDICARE PART A & B [facility] MEDICARE REPLACEMENT MEDICARE PART A & B [place] [employer] MEDICARE REPLACEMENT Care Teams Spouter Relationship Specialty Start Date End Date Renu Roman MD [address] [place] [address] PCP - General Internal Medicine 12/21/20 Additional Source Comments The information contained in this document represents components of the legal health record. It is not the complete legal health record.[facility]
--- OUTSIDE RECORDS SUMMARY | 2025-04-17 15:07 | XMS_ITS | Clinical Summary ---
Author Organization [facility] Address [address] [place] [phone] Phone Care Team Providers Care Producer Director Name Role Phone Stephan Hodge MD Primary Care Provider [phone] Allergies Active Allergy Reactions Criticality Noted Date [...] Procedure Name Priority Date/Time Associated Diagnosis Comments [facility] SCREENING DIGITAL Routine 06/26/2020 7:49 AM EST Encounter for screening mammogram for malignant neoplasm of breast from Last 3 Months or Most Recently Relevant to Health Maintenance Results * MARIANO SCREENING DIGITAL (06/26/2020 7:49 AM EST) Anatomical Region Laterality Modality Mammography 06/21/2020 10:3 5 AM EST Narrative 06/26/2020 7:49 AM [facility] Diagnostic Imaging Department [address] [place] [id number] Patient: JOSE G SALOMON Rosalee GoodeB./Age/Sex: 1960 - 60 - F Unit#: [id number] Location/Status: SPDIMAM/REG CLI Mnemonic/Ordering Site: [facility] Ordering Physician: JESUS ROBLES MD Mariano Screening Digital - 06/21/201108 HISTORY: The patient is a 60-year-old female presenting for routine screening mammography. FINDINGS: CC and MLO views of both breasts were obtained using full field digital mammography in the [employer] Senographe 2000-D unit. Computer aided detection with [...] 1: Negative PQRI CPT II 3341F Code 11807, 15184 PQRI 225 CPT II 7025F Dictating Physician: TIANNA RUBALCAVA MD Electronically Signed by: TIANNA RUBALCAVA MD Dic Date/Time: 06/26/20 0747 Sign date/Time: 06/26/20 0749 Procedure Note Tianna Rubalcava MD - 05/06/2022 [facility] Diagnostic Imaging Department [address] [place] [id number] Patient: JOSE G SALOMON Rosalee GoodeB./Age/Sex: 1960 - 60 - F Unit#: [id number] [facility]Ordering Site: [facility] Ordering Physician: JESUS ROBLES MD Mariano Screening Digital - 06/21/20 - 1109 HISTORY: The patient is a 60-year-old female presenting for routinescreening mammography. FINDINGS: CC and MLO views of both breasts were obtained using fullfield digital mammography in the [employer]he 2000-D unit. Computer aideddetection with the iCAD [...] 1: Negative PQRI CPT II 3341F Code 32150, 52810 PQRI 225 CPT II 7025F Dictating Physician: TIANNA RUBALCAVA MD Electronically Signed by: TIANNA RUBALCAVA MD Dic Date/Time: 06/26/20 0747 Sign date/Time: 06/26/20 0749 Jesus Robles MD IMG BI PROCEDURES Final Result from Last 3 Months or Most Recently Relevant to Health Maintenance Insurance MEDICAID - [place] [employer] MEDICARE ADVANTAGE Care Teams Producer Director Relationship Specialty Start Date End Date Stephan Hodge MD [address] [facility] [address] [place], [place] PCP - General 12/18/16
== END 2025-04-17 12:05 | disposition home or self-care (01) ==
LOC: HO.HNS 11:26
PROVIDERS: PCP Hospitalist; Visit Provider Physician Assistant
DX: Z98.890 Other specified postprocedural states (principal)
CPT/HCPCS: 99024

== ENCOUNTER 2025-05-04 11:12 | Outpatient (AMB) | payer MEDICARE, MEDICAID, SELFPAY ==
--- OUTSIDE RECORDS SUMMARY | 2025-05-02 05:51 | XMS_ITS ---
Author Organization [facility] Address [address] [phone] Care Team Providers Care Rn Building Name Role Phone JESUS ROBLES Primary Care Provider REASON FOR VISIT Lisinopril-hydroCHLOROthiazide Medications Medication SIG (Take, Route, Frequency, Duration) Notes Start Date End Date Status Lisinopril-hydroCHLOROthia zide 10-12.5 MG TAKE 1 TABLET DAILY Once a day; Duration: 90 days Active Encounters Encounter Location Date Provider Diagnosis [facility] [address] [phone] 05/02/2025 JESUS ROBLES Essential (primary) hypertension I10 Assessments Encounter Date Diagnosis (ICD Code) Assessment Notes Treatment Notes Treatment Clinical Notes Section Notes 05/02/2025 Essential (primary) hypertension (ICD-10 - I10) Plan Of Treatment Medication Medication Name Sig Start Date Stop Date Notes Lisinopril-hydroCHLOROthiazi de 10-12.5 MG TAKE 1 TABLET DAILY Once a day; Duration: 90 days Progress Notes * Trang SALOMONB: [birth year] (65 yo F)Acc No.[id number]:05/02/2025 Patient: Rita TOMLINSON :1960 A ge:65 Y S ex:Female Address:[address] [place] [phone] * Refills Refill Lisinopril-hydroCHLOROthiazide Tablet, 10-12.5 MG, 90, TAKE 1 TABLET DAILY, Once a day, 90 days, Refills=3 Subjective: * Chief Complaints: * L isinopril-hydroCHLOROthiazide * Medical History: * Surgical History: * Hospitalization/Major Diagno stic Procedure: * Medications: Objective: * Vitals: * Physical Examination: Assessment: * Assessment: 1. E ssential (primary) hypertension - I10 Plan: * Treatment: * Procedure Codes: * true * Date: Generated for Madison prieto/Desire/Jemma on: 07/05/2024 02:43 PM EST
--- OUTSIDE RECORDS SUMMARY | 2025-05-02 08:00 | XMS_ITS ---
Author Organization [email or web address] Address [address] [facility] [address] [place] [address] Care Team Providers Care Brake Rider Name Role Phone JESUS ROBLES Primary Care Provider REASON FOR VISIT Medicare Wellness Medications Medication SIG (Take, Route, Frequency, Duration) Notes Start Date End Date Status Lisinopril-hydroCHLOROth iazide 10-12.5 MG TAKE 1 TABLET DAILY Once a day; Duration: 90 days Active diazePAM 5 MG 1 tablet as needed Orally Once a day; Duration: 14 days take half an hour before flight 03/27/2025 Active Atorvastatin Calcium 20 MG TAKE 1 TABLET ONCE DAILY; Duration: 90 Active Metoprolol Succinate ER 100 MG TAKE 1 TABLET DAILY; Duration: 90 Active Vitamin E 400 UNIT 1 capsule orally once a day Not-Taking CoQ10 100 MG 1 capsule orally once a day Not-Taking Potassium Chloride ER 20 MEQ 1 tablet with food Orally Once a day; Duration: 90 days Active Vitamin D 2000 UNIT 1 tablet Orally Once a day Not-Taking Lamesa 3 1200 MG 1 capsule Orally Once a day Not-Taking Multivitamin Adult one daily N ot-Taking Atorvastatin Calcium 10 MG TAKE 1 TABLET BY MOUTH EVERY DAY; Duration: 90 Active Klor-Con 20 MEQ MIX AND DRINK 1 PACKET BY MOUTH DAILY WITH FOOD; Duration: 90 days Active Folic Acid 1 MG 1 tablet Orally Once a day; Duration: [address] Parker Active Leflunomide 20 MG 1 tablet Orally Once a day; Duration: [address] Parker Active Aspirin Adult Low Dose 81 MG 1 tablet Orally Once a day; Duration: 90 days Not-Taking Blood Pressure Monitor - use to check blood pressure daily; Duration: 30 days 12/02/2023 Active Hydroxychloroquine Sulfate 200 MG 1 tablet with food or milk Orally twice a day; Duration: [address] Parker Active Ferrous Sulfate 325 (65 Fe) MG 2 tablet Orally Once a day; Duration: 90 days Active sulfaSALAzine 500 MG 1 tablet Orally four times a day; Duration: [address] Parker Active Vitamin C 1000 MG 1 tablet orally once a day; Duration: 90 days Active Misc. Devices - as directed 01/28/2024 A ctive Misc. Devices - as directed; Duration: 365 days Extra long Compression stocking buttocks high for pt 01/28/2024 Active traMADol HCl 50 MG 1 tablet as needed Orally four times a day Dr. Parker Active predniSONE 5 MG 1 tablet Orally Once a day Dr. Parker Active Gabapentin 800 MG 1 tablet Orally 3 times a day; Duration: [address] Parker Active Encounters Encounter Location Date Provider Diagnosis [facility] [address] [phone] 05/02/2025 JESUS ROBLES Plan Of Treatment No Information Progress Notes * Torres SALOMONJuanchoB: [birth year] (65 yo F)Acc No.[id number]:05/02/2025 Progress Note Patient: Rita TOMLINSON Provider: Maicol ROBLES MD :1960 A ge:65 Y S ex:Female Date:05/02/2025 Address:[address] [place], [place] [phone] Subjective: * Chief Complaints: * 1 . Medicare Wellness. * Medical History: * Medications: T aking Gabapentin 800 MG Tablet 1 tablet Orally 3 times a day , Notes to Pharmacist: Dr. Parker, Taking predniSONE 5 MG Tablet 1 tablet Orally Once a day , Notes to Pharmacist: Dr. Parker, Taking traMADol HCl 50 MG Tablet 1 tablet as needed Orally four times a day , Notes to Pharmacist: Dr. Parker, Taking Misc. Devices - Miscellaneous as directed Extra long Compression stocking buttocks high for pt, Taking Misc. Devices - Miscellaneous as directed , Taking Blood Pressure Monitor - Device use to check blood pressure daily , Taking Vitamin C 1000 MG Tablet 1 tablet orally once a day , Taking sulfaSALAzine 500 MG Tablet 1 tablet Orally four times a day , Notes to Pharmacist: Dr. Parker, Taking Ferrous Sulfate 325 (65 Fe) MG Tablet 2 tablet Orally Once a day , Notes to Pharmacist: , Taking Hydroxychloroquine Sulfate 200 MG Tablet 1 tablet with food or milk Orally twice a day , Notes to Pharmacist: Dr. Parker, Taking Leflunomide 20 MG Tablet 1 tablet Orally Once a day , Notes to Pharmacist: Dr. Parker, Taking Folic Acid 1 MG Tablet 1 tablet Orally Once a day , Notes to Pharmacist: Dr. Parker, Taking Klor-Con 20 MEQ Packet MIX AND DRINK 1 PACKET BY MOUTH DAILY WITH FOOD , Taking Atorvastatin Calcium 10 MG Tablet TAKE 1 TABLET BY MOUTH EVERY DAY , Taking Potassium Chloride ER 20 MEQ Tablet Extended Release 1 tablet with food Orally Once a day , Taking Metoprolol Succinate ER 100 MG Tablet Extended Release 24 Hour TAKE 1 TABLET DAILY , Taking Atorvastatin Calcium 20 MG Tablet TAKE 1 TABLET ONCE DAILY , Taking diazePAM 5 MG Tablet 1 tablet as needed Orally Once a day take half an hour before flight, Taking Lisinopril-hydroCHLOROthiazide 10-12.5 MG Tablet TAKE 1 TABLET DAILY Once a day , Not-Taking Aspirin Adult Low Dose 81 MG Tablet Delayed Release 1 tablet Orally Once a day , Not-Taking CoQ10 100 MG Capsule 1 capsule orally once a day , Not- Taking Multivitamin Adult , Notes to Pharmacist: one daily, Not-Taking Lamesa 3 1200 MG Capsule 1 capsule Orally Once a day , Not-Taking Vitamin D 2000 UNIT Tablet 1 tablet Orally Once a day , Not-Taking Vitamin E 400 UNIT Capsule 1 capsule orally once a day Objective: * Vitals: Assessment: Plan: * Treatment: * Procedure Codes: N OSHO NO SHOW FEE * Preventive Medicine: C OVID - 12/04/20, 11/13/20 TD - 09/05/2000 TDAP - FLU - SHINGRIX - PREVNAR - AUGER PRESS OPERATOR - MAMMOGRAM - EYE EXAM - COLONOSCOPY. * Images: * Electronic signature of VALERIA ROBLES MD on 05/04/2025 at 02:43 PM EST Sign off status: Pending * Provider: Maicol ROBLES MD Date: 07/03/2024 Generated for Madison prieto/Desire/eTransmitting on: 1 07/05/2024 02:43 PM EST
--- NOTE | 2025-05-04 11:27 | HO.NEPHOV_ITS ---
Vital Signs 05/04/25 11:29 Height 5 ft 2 in Weight 249 lb 8 oz BMI 45.6 BP 130/74 Blood Pressure Location Lt brachial Position Sitting Pulse 68 Pulse Source Pulse Oximeter Pulse Oximetry (%) 95 Oxygen Delivery Method Room Air Intake Visit Reasons: 6mon follow-up w/labs-Conf Lodging Manager Required: No Accompanied by: Self / Same As Patient Allergies doxycycline Allergy (Severe, Verified 05/04/25 11:29) Hives erythromycin base Allergy (Severe, Verified 05/04/25 11:29) Hives kiwi Allergy (Severe, Verified 05/04/25 11:29) Hives latex Allergy (Severe, Verified 05/04/25 11:29) Shortness of Breath Penicillins Allergy (Severe, Verified 05/04/25 11:29) Hives strawberry Allergy (Severe, Verified 05/04/25 11:29) Hives tomato Allergy (Intermediate, Verified 05/04/25 11:29) itchy tongue HPI Comments Details: Ms Salomon is a delightful 63-year-old female whom had the pleasure of seeing in follow up for H/O WILLIAM on a backdrop of hypertension. She has multiple medical issues including hypertension, dyslipidemia, rheumatoid arthritis and high BMI. She had been on lisinopril hydrochlorothiazide 02/26.. She is not known to have any proteinuria. She is on leflunomide for her rheumatoid arthritis. She denies chest pain, shortness of breath, proximal nocturnal dysp agustín, orthopnea, pedal edema, hematuria, sensorineural deafness,, epistaxis, photosensitivity, new skin rashes. She denies taking excessive nonsteroidal anti-inflammatories. She maintains good hydration. She has no orthostatic symptoms. She is trying to be more active. She has no family history of any renal disease. [facility] Medical History Hx of concussion (~2015) Spinal stenosis Recent bereavement Depression Anxiety Ambulates with cane Concussion Eczema Rheumatoid arthritis Hyperlipidemia Hypertension Anemia Chronic kidney disease, stage 3a Surgical History H/O section Hx of tonsillectomy (1990) Family History Father Amyloidosis Social History Are you a primary progressive care nurse to a significant other at home: No Do you presently have visiting nurse or other home services: No Patient Tobacco Use Status: Never used Tobacco Review of Systems Const All systems reviewed & are unremarkable except as noted in HPI and below Physical Exam Vital Signs: Last Vital Signs Pulse 68 05/04/25 11:29 BP 130/74 05/04/25 11:29 Pulse Ox 95 05/04/25 11:29 Oxygen Delivery Method Room Air 05/04/25 11:29 BMI result Body Mass Index 45.6 Const General: comfortable and no acute distress Orientation/consciousness: patient oriented x3 HEENT Head: Yes normocephalic Mouth: Normal oral and palatal mucosa present Eyes EOM: EOMs intact bilaterally Neck Neck: Yes supple Resp Auscultation: clear to auscultation bilaterally Cardio Jugular venous distension: no JVD Rate: regular rate GI Palpation (GI): Soft to palpation Auscultation: normal bowel sounds General: Yes no CVA tenderness Back/Spine/Pelvis Back: no CVA tenderness Skin General skin exam: no rashes or lesions noted Neuro General: patient oriented x3 and moves all extremities Extrem General: Yes no pedal edema Results Reviewed Nephrology Results: Hgb, (12.0-16.0) 11.8 g/dl L 03/21/25 WBC, (4.8-10.8) 5.1 X10*3/uL 03/21/25 Plt Count, (160-400) 178 X10*3/uL 03/21/25 Sodium, (135-145) 145 mmol/L 04/17/25 Potassium, (3.3-5.1) 3.9 mmol/L 04/17/25 Chloride, (96-108) 104 mmol/L 04/17/25 Carbon Dioxide, (22-29) 32 mmol/L H 04/17/25 BUN, (9-16) 11 mg/dL 04/17/25 Creatinine, (0.5-1.4) 1.14 mg/dL 04/17/25 Calcium, (8.4-10.2) 9.5 mg/dL 03/21/25 Urine Creatinine 248.30 mg/dL 04/28/24 Protein/Creatinin Ratio, (<0.2) 0.13 04/28/24 Renal US 04/28/24 Assessment & Plan Assessment & Plan (1) Hypertension: Code(s): I10 - Essential (primary) hypertension Category: Medical Qualifiers: Hypertension type: primary hypertension Qualified Code(s): I10 - Essential (primary) hypertension Plan Her urine output is good and there is no reason to suspect any obstructive uropathy. We may have to back off on her HCTZ and or lisinopril if her serum creatinine rises. Repeat blood work ordered. She should minimize or avoid nonsteroidal anti-inflammatories and maintain good hydration. She has no proteinuria. Her blood pressure needs to maintain at goal. I have explained all this in great detail and she had the opportunity to ask questions. Follow- up appointment given. Orders: Orders Electrolytes 6 Months I10 - Essential (primary) hypertension Blood Urea Nitrogen 6 Months I10 - Essential (primary) hypertension Creatinine 6 Months I10 - Essential (primary) hypertension UA and rflx microscopic 6 Months I10 - Essential (primary) hypertension Protein Creatinine Ratio, Ur 6 Months I10 - Essential (primary) hypertension Coding Level of Care Code Est Pt Level 4 (66807) Diagnoses Primary hypertension I10 Hypertension type: primary hypertension
[2025-05-04 11:29] VITALS: BP 130/74; PULSE 68; O2SAT 95; BMI 45.6
--- OUTSIDE RECORDS SUMMARY | 2025-05-04 14:43 | XMS_ITS | Patient Health Record ---
Author Organization [facility] [address] [place] [address] [address] Address [address] [place] [phone] Support Name Relationship Address Phone Rita Salomon Guarantor Unknown [phone] Reason For Referral No Information Plan Of Treatment No Information Insurance Providers Payer Name Payer Address Payer Phone Subscriber Number Group Number Insured Name Patient Relationship to Insured Coverage Start Date Coverage End Date Industrial Accident [address] [phone] [id number] Rita aSlomon Self - patient is the insured
--- OUTSIDE RECORDS SUMMARY | 2025-05-04 14:43 | XMS_ITS | Patient Health Record ---
Author Organization [facility] Address [address] [place] [address] Care Team Providers Care Treating Plant Supervisor Name Role Phone DAVIDYonny JESUS Primary Care Provider Winnie Louise Unavailable [phone] Allergies Allergen (clinical drug ingredient) Drug/Non Drug [...] foramina of lumbar region (M99.63) Referral Organization [facility] ter Referring Provider First Name JESUS Referring Provider Last Name TRAVIS Referring Provider Speciality Internal M edicine Referred Provider Specialty Neurosurgery General Notes Referral sent to [facility] Neurosurgery.Maxine Latraya 10/07/2024 09:02:41 AM > Referral Priority Routine Medications Medication SIG (Take, Route, Frequency, Duration) Notes Start Date End Date Status CoQ10 100 MG 1 capsule orally once a day Not-Taking Potassium Chloride ER 20 MEQ 1 tablet with food Orally Once a day; Duration: 90 days Active Atorvastatin Calcium 10 MG TAKE 1 TABLET BY MOUTH EVERY DAY; Duration: 90 Active Klor-Con 20 MEQ MIX AND DRINK 1 PACKET BY MOUTH DAILY WITH FOOD; Duration: 90 days Active traMADol HCl 50 MG 1 tablet as needed Orally four times a day Dr. Parker Active predniSONE 5 MG 1 tablet Orally Once a day Dr. Parker Active Gabapentin 800 MG 1 tablet Orally 3 times a day; Duration: [address] Parker Active Atorvastatin Calcium 20 MG TAKE 1 TABLET ONCE DAILY; Duration: 90 Active Metoprolol Succinate ER 100 MG TAKE 1 TABLET DAILY; Duration: 90 Active Vitamin E 400 UNIT 1 capsule orally once a day Not-Taking Vitamin D 2000 UNIT 1 tablet Orally Once a day Not-Taking Monroe 3 1200 MG 1 capsule Orally Once a day Not-Taking Multivitamin Adult one daily N ot-Taking Blood Pressure Monitor - use to check blood pressure daily; Duration: 30 days 12/02/2023 Active Misc. Devices - as directed 01/28/2024 A ctive Misc. Devices - as directed; Duration: 365 days Extra long Compression stocking buttocks high for pt 01/28/2024 Active Lisinopril-hydroCHLOROth iazide 10-12.5 MG TAKE 1 TABLET DAILY Once a day; Duration: 90 days Active diazePAM 5 MG 1 tablet as needed Orally Once a day; Duration: 14 days take half an hour before flight 03/27/2025 Active Folic Acid 1 MG 1 tablet [...] once a day; Duration: 90 days Active Immunizations Vaccine Route Administration [...] Status W/U Status Risk Notes Problem Anemia (710957535) Anemia, unspecified (D64.9) Active confirmed Problem Morbid obesity (disorder) (636489803) Morbid (severe) obesity due to excess calories (E66.01) Active confirmed Problem Mixed hyperlipidemia (092085416) Mixed hyperlipidemia (E78.2) Active confirmed Problem Lymphedema (548939492) Lymphedema, not elsewhere classified (I89.0) Active confirmed Problem Myopathy due to rheumatoid arthritis (472138229) 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 Problem Paresthesia (finding) (04479286) Paresthesia of skin (R20.2) Active confirmed Problem Dizziness and giddiness (767190458) Dizziness and giddiness (R42) Active confirmed Problem Abnormal results of liver function studies (565433581) Abnormal results of liver function studies (R94.5) Active confirmed Problem Essential hypertension (54916284) Essential (primary) hypertension (I10) Active confirmed Problem 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 Problem Chronic kidney disease stage 3A (disorder) (795842904) Chronic kidney disease, stage 3a (N18.31) Active confirmed Vital Signs Heart Rate 71 /min 12/13/2024 Temperature 96.0 degrees Fahrenheit 12/13/2024 Blood pressure diastolic 82 mm Hg 12/13/2024 Oximetry 98 % 12/13/2024 Height 64 in 12/13/2024 Blood pressure systolic 130 mm Hg 12/13/2024 Weight 239.7 lbs 12/13/2024 BMI 41.14 kg/m2 12/13/2024 Encounters Encounter Location Date Provider Diagnosis [address] [address] 05/02/2025 JESUS ROBLES [address] [address] 08/30/2024 Winnie Louise Pre-operative cleara nce Z01.[address] [place] [address] 12/13/2024 [facility] Essential (primary) hypertension I10 ; Mixed hyperlipidemia E78.2 ; 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 M05.49 ; Morbid (severe) obesity due to excess calories E66.01 ; Wild-type transthyretin-related (ATTR) amyloidosis E85.82 ; Lymphedema, not elsewhere classified I89.0 and Dietary counseling and surveillance Z71.3 [facility] [address] [place] [address] 05/30/2024 [facility] [address] [place] [address] 06/03/2024 [facility] [address] [place] [address] 08/16/2024 [facility] [address] [place] [address] 08/30/2024 [facility] [address] [place] [address] 09/01/2024 [facility] [address] [place] [address] 10/05/2024 [facility] [address] [place] [address] 10/06/2024 [facility] [address] [place] [address] 10/13/2024 [facility] [address] [place] [address] 12/27/2024 [facility] [address] [place] [address] 03/20/2025 [facility] [address] [place] [address] 03/21/2025 [facility] [address] [place] [address] 03/23/[address] [place] [address] 03/27/[address] [place] [address] 05/02/[address] [place] [address] 05/02/2025 [facility] Essential (primary) hypertension I10 Assessments Encounter Date Diagnosis (ICD Code) Assessment Notes Treatment Notes Treatment Clinical Notes Section Notes 08/30/2024 Pre-operative clearance (ICD-10 - Z01.818) Mrs. Salomon is a 64-year-old lady with anemia, hypertension, hyperlipidemia, rheumatoid arthritis, lymphedema and morbid obesity here for pre-op for Intraarticular injection to be done at [facility] with Cristi PEREZ. Plan as follows: Cardiac assessment. Patient can easily do 4 METS. Blood pressure and exam is within normal limits. Pulmonary assessment. Lung exam is normal. No further Intervention NPO on the day of surgery. Take your medications after the surgery. Hold NSAIDs and aspirin 5 days before the procedure. She is no longer taking ASA, Based on ASCVD risk cat scanner operator plus, patient is a low risk with score of 3.7 for developing CVD. Hold off on Monroe supplement 5 days prior to procedure. Low [...] Rheumatoid arthritis and she follows up with oil filters inspector on a regular basis and have regular [...] Rheumatoid arthritis and she follows up with oil filters inspector on a regular basis and have regular [...] months. Screening blood work ordered. Medications reviewed 05/02/2025 Essential (primary) hypertension (ICD-10 - I10) 12/13/2024 Rheumatoid myopathy with rheumatoid arthritis of [...] Rheumatoid arthritis and she follows up with oil filters inspector on a regular basis and have regular [...] Screening blood work ordered. Medications reviewed 12/13/2024 Morbid (severe) obesity due to excess [...] Rheumatoid arthritis and she follows up with oil filters inspector on a regular basis and have regular [...] Screening blood work ordered. Medications reviewed 12/13/2024 Wild-type transthyretin-rel ated (ATTR) amyloidosis (ICD-10 [...] Rheumatoid arthritis and she follows up with oil filters inspector on a regular basis and have regular [...] Screening blood work ordered. Medications reviewed 12/13/2024 Lymphedema, not elsewhere classified (ICD-10 - [...] Rheumatoid arthritis and she follows up with oil filters inspector on a regular basis and have regular [...] Screening blood work ordered. Medications reviewed 12/13/2024 Dietary counseling and surveillance (ICD-10 - [...] Rheumatoid arthritis and she follows up with oil filters inspector on a regular basis and have regular [...] METABOLIC PANEL 06/26/2022 CBC with Diff, Platelet, [id number] 10/16 Albumin/Creatinine Ratio,Urine-[id number] Albumin/Creatinine Ratio,Urine-[id number] Lipid Panel-[id number] 11/02/2023 Lipid Panel-[id number] 12/13/2024 Basic Metabolic Panel [phone] Comp. Metabolic Panel [phone] Comp. Metabolic Panel [phone] Future Test Test Name Order Date Basic Metabolic Panel [phone] Insurance Providers Payer Name Payer Address Payer Phone Subscriber Number Group Number Insured Name Patient Relationship to Insured Coverage Start Date Coverage End Date Medicare [address] [place] [phone] [id number] Rita Salomon Self - patient is the insured [place] [address] [place] [phone] [id number] Rita Salomon Self - patient is the insured 4 Medical (General) History Medical History History ICD Code anemia- Dr Hankins hypertension, benign hyperlipidemia rheumatoid arthritis- Dr Alicia PMR Eczema and she DR Hardy Concussion and see Dr Alonso Surgical History Surgery Date(Month/Year) tonsillectomy section
--- OUTSIDE RECORDS SUMMARY | 2025-05-04 14:43 | XMS_ITS | Clinical Summary ---
Author Organization [facility] Address [address] [place] [address] Phone Care Team Providers Care Nipple Maker Name Role Phone JessieBlasrodrigue Armenat MD Primary Care Provider [phone] Allergies Active Allergy Reactions Criticality Noted Date Comments Doxycycline Calcium 08/29/2024 Kiwi 08/29/2024 Latex 08/29/2024 Penicillins 08/29/2024 Virgin 08/29/2024 Medications traMADoL (ULTRAM) 50 mg tablet [...] Payer (Ef fective 2017-Present) Name:Rita Salomon Member ID:[id number] Relation to Subscriber:Self Name:Rita Salomon Subscriber ID:[id number] Payer ID:[id number] Group ID:Not on file Type:Medicare Address: [facility] [email or web address] [facility] [address] [place] [phone] [facility] MEDICARE REPLACEMENT MEDICARE PART A & B [facility] MEDICARE REPLACEMENT MEDICARE PART A & B MEDICARE PART A & B MEDICARE PART A & [facility] [place] [facility] RE[facility] MEDICARE PART A & B MEDICARE PART A & B [facility] MEDICARE REPLACEMENT MEDICARE PART A & B [place] MEDICARE REPLACEMENT MEDICARE PART A & B [place] [employer] PPO MEDICARE REPLACEMENT Care Teams Nipple Maker Relationship Specialty Start Date End Date Renu Roman MD [address] [address] [place] [address] PCP - General Internal Medicine 12/21/20 Additional Source Comments The information contained in this document represents components of the legal health record. It is not the complete legal health record.[facility]
--- OUTSIDE RECORDS SUMMARY | 2025-05-04 14:43 | XMS_ITS | Clinical Summary ---
Author Organization [facility] Address [address] [place] [address] Phone Care Team Providers Care Huc Name Role Phone Stephan Hodge MD Primary [...] Procedure Name Priority Date/Time Associated Diagnosis Comments [facility] SCREENING DIGITAL Routine 06/26/2020 7:49 AM EST Encounter for screening mammogram for malignant neoplasm of breast from Last 3 Months or Most Recently Relevant to Health Maintenance Results * MARIANO SCREENING DIGITAL (06/26/2020 7:49 AM EST) Anatomical Region Laterality Modality Mammography 06/21/2020 10:3 5 AM EST Narrative 06/26/2020 7:49 AM [facility] Diagnostic Imaging Department [address] [place] [address] Patient: JOSE G SALOMON Rosalee GoodeB./Age/Sex: 1960 - 60 - F Unit#: [id number] Location/Status: SPDIMAM/REG CLI Mnemonic/Ordering Site: [facility] Ordering Physician: JESUS ROBLES MD Mariano Screening Digital - 06/21/201108 HISTORY: The patient is a 60-year-old female presenting for routine screening mammography. FINDINGS: CC and MLO views of both breasts were obtained using full field digital mammography in the [employer] 2000-D unit. Computer aided detection with [...] 1: Negative PQRI CPT II 3341F Code 64908, 72688 PQRI 225 CPT II 7025F Dictating Physician: TIANNA RUBALCAVA MD Electronically Signed by: TIANNA RUBALCAVA MD Dic Date/Time: 06/26/20 0747 Sign date/Time: 06/26/20 0749 Procedure Note Tianna Rubalcava MD - 05/06/2022 [facility] Diagnostic Imaging Department [address] [place] [address] Patient: JOSE G SALOMON Rosalee GoodeB./Age/Sex: 1960 - 60 - F Unit#: [id number] [facility]/Ordering Site: [facility] Ordering Physician: JESUS ROBLES MD Mariano Screening Digital - 06/21/20 - 1109 HISTORY: The patient is a 60-year-old female presenting for routinescreening mammography. FINDINGS: CC and MLO views of both breasts were obtained using fullfield digital mammography in the [employer] 2000-D unit. Computer aideddetection with the iCAD [...] 1: Negative PQRI CPT II 3341F Code 59673, 56053 PQRI 225 CPT II 7025F Dictating Physician: TIANNA RUBALCAVA MD Electronically Signed by: TIANNA RUBALCAVA MD Dic Date/Time: 06/26/20 0747 Sign date/Time: 06/26/20 0749 Jesus Robles MD IMG BI PROCEDURES Final Result from Last 3 Months or Most Recently Relevant to Health Maintenance Insurance MEDICAID [place] AET[place] MEDICARE ADVANTAGE Care Teams Huc Relationship Specialty Start Date End Date Stephan Hodge MD [address] [place], [place] PCP - General 12/18/16
== END 2025-05-04 12:12 | disposition home or self-care (01) ==
LOC: HO.HKAS 11:12
PROVIDERS: PCP Hospitalist; Visit Provider Internal Medicine Nephrology
DX: I10 Essential (primary) hypertension (principal)
CPT/HCPCS: 99214

== ENCOUNTER → 2025-05-04 11:12 | Outpatient (BNVA) | payer MEDICARE, MEDICAID, SELFPAY | PROVIDERS: PCP Hospitalist; Visit Provider Internal Medicine Nephrology | DX: I10 Essential (primary) hypertension (principal) | CPT/HCPCS: 99212 ==